=== PATIENT | female | born 1975 | race Caucasian/White ===

== ENCOUNTER 2019-08-01 15:10 | Outpatient (CLI) | payer OTHER, BC, SELFPAY ==
--- NOTE | ~2019-08-01 | MM_ITS ---
EXAMINATION: MM screening jose BI w maria teresa HISTORY: Screening mammogram TECHNIQUE: Craniocaudal and mediolateral oblique 3-D tomosynthesis images were obtained and synthetic 2-D images were generated. CAD analysis was submitted and interpreted. COMPARISON: 07/27/2018 bilateral digital screening mammogram 03/24/2018 diagnostic left digital mammogram and limited left breast ultrasound examination 08/25/2017 stereotactic biopsy and postbiopsy mammogram 08/09/2017 diagnostic left digital mammogram 07/23/2017 bilateral digital screening mammogram BREAST PARENCHYMAL COMPOSITION: There are scattered areas of fibroglandular density. FINDINGS: There is a biopsy marker on the left; history of prior benign left stereotactic breast biop sy. There are occasional punctate benign calcifications. There is no evidence of suspicious mass, celena cification, or architectural distortion to suggest malignancy in either breast. There has been no víctor picious interval change. IMPRESSION: 1. No mammographic evidence of malignancy. 2. Recommend routine screening mammography in one year. BI-RADS Category 2: Benign finding(s). Reviewed, dictated and finalized at location A.
== END 2019-08-01 15:11 | disposition home or self-care (01) ==
LOC: ANHIMG 15:19
PROVIDERS: PCP Internal Medicine; Visit Provider Internal Medicine Hematology & Oncology
DX: Z12.31 Encounter for screening mammogram for malignant neoplasm of breast (principal)
CPT/HCPCS: 77063; 77067

== ENCOUNTER 2020-02-17 19:02 | Emergency (ER) | payer OTHER, BC, SELFPAY ==
[2020-02-17 19:07] VITALS: BP 158/92; PULSE 76; RESP 18; TEMP 36.7; O2SAT 99
--- NOTE | 2020-02-17 19:45 | ED.GENADULT ---
HPI - General Adult General Chief complaint: Extremity Injury, Lower Stated complaint: Groin/Leg Pain Time Seen by Provider: 02/17/20 19:13 History of Present Illness HPI narrative: Patient is a 44-year-old female who presents emerge department with chief complaint of bilateral inguinal pain. The patient reports that she recently was being managed for COVID-19 and has been at home. The patient states that for the last 24 hours she started having pain in the bilateral groin area states that it radiates down into her thighs on both sides. Patient denies bowel or bladder dysfunction denies paresthesias denies foot drop. Patient denies fever states she has been cleared by the health department to return to work on Wednesday. Related Data Home Medications Medication Instructions Recorded Confirmed cetirizine [Zyrtec] 10 mg PO DAILY 02/17/20 famotidine [Pepcid AC] 10 mg PO DAILY 02/17/20 Allergies Allergy/AdvReac Type Severity Reaction Status Date / Time latex Allergy Unknown Hives Verified 02/17/20 19:10 Review of Systems Review of Systems: Narrative: A 10 system review of systems was completed on the patient and is negative except for what is stated in the HPI. Nursing and ancillary documentation was reviewed. [facility] Social History Social History Smoking status: Never smoker Alcohol intake: never Comments COVID-19 Seasonal allergies Social history the patient denies illicit drug use Exam Narrative: Exam Narrative: GENERAL: Well-appearing, well-nourished, and in no acute distress. HEAD: Normocephalic, atraumatic. EYES: PERRLA and EOMI. ENT: Nares clear, no rhinorrhea or epistaxis. Mucous membranes moist. NECK: Supple. CHEST: Clear to auscultation. No respiratory distress. HEART: Regular rate and rhythm. No murmur heard. Normal peripheral pulses. ABDOMEN: Soft, nontender, nondistended, normal active bowel sounds. EXTREMITIES: Normal range of motion. No edema. SKIN: Warm, dry, no rash. NEURO: No focal deficits. Alert and oriented x3. PSYCH: Normal mood and affect. Course Vital Signs Vital signs: Vital Signs Temperature 36.7 C 02/17/20 19:07 Pulse Rate 76 02/17/20 19:07 Respiratory Rate 18 02/17/20 19:07 Blood Pressure 158/92 H 02/17/20 19:07 Pulse Oximetry 99 02/17/20 19:07 Temperature 36.7 C 02/17/20 19:07 Pulse Rate 76 02/17/20 19:07 Respiratory Rate 18 02/17/20 19:07 Blood Pressure 158/92 H 02/17/20 19:07 Pulse Oximetry 99 02/17/20 19:07 Medical Decision Making Vital Signs Vital Signs: Vital Signs Temperature 36.7 C 02/17/20 19:07 Pulse Rate 76 02/17/20 19:07 Respiratory Rate 18 02/17/20 19:07 Blood Pressure 158/92 H 02/17/20 19:07 Pulse Oximetry 99 02/17/20 19:07 Temperature 36.7 C 02/17/20 19:07 Pulse Rate 76 02/17/20 19:07 Respiratory Rate 18 02/17/20 19:07 Blood Pressure 158/92 H 02/17/20 19:07 Pulse Oximetry 99 02/17/20 19:07 Lab Data Result diagrams: 02/17/20 19:42 02/17/20 19:42 Labs: Lab Results 02/17/20 02/17/20 02/17/20 Range/Units 19:42 19:42 19:42 WBC 9.4 (4.5-10.0) K/mm3 RBC 4.80 (4.2-5.4) M/mm3 Hgb 15.7 H (12.0-15.0) g/dL Hct 43.9 (37.0-47.0) % MCV 91.5 (80-100) fl MCH 32.7 (26-34) pg MCHC 35.8 (32-36) g/dl RDW 12.4 (11.5-14.5) % Plt Count 221 (150-375) k/mm3 MPV 10.4 (7.4-10.4) fl Immature Gran % (Auto) 1.3 H (0-0.5) % Neut % (Auto) 52.8 (45.5-73.1) % Lymph % (Auto) 37.3 (18.3-44.2) % [place] % (Auto) 7.9 (2.6-8.5) % Eos % (Auto) 0.6 (0-4.4) % Baso % (Auto) 0.1 L (0.2-1.2) % Lymph # (Auto) 3.49 H (0.9-3.2) K/mm3 [place] # (Auto) 0.7 H (0.1-0.6) K/mm3 Eos # (Auto) 0.1 (0-0.3) K/mm3 Baso # (Auto) 0.0 (0.0-0.1) K/mm3 Abs Immat Gran (auto) 0.12 H (0.00-0.031) K/mm3 Absolute Neuts (auto) 4.9 (1.3-6.7) K/mm3 Absolute Nucleated RBC 0.0 (0.0-0.012)
[2020-02-17 19:52] LABS: Basophils Percent Auto 0.1 % (0.2-1.2); Eosinophils Absolute Auto 0.1 K/mm3 (0-0.3); Eosinophils Percent Auto 0.6 % (0-4.4); Hematocrit 43.9 % (37.0-47.0); Hemoglobin 15.7 g/dL (12.0-15.0); Immature Granulocyte Absolute 0.12 K/mm3 (0.00-0.031); Immature Granulocyte Percent A 1.3 % (0-0.5); Lymphocytes Absolute Auto 3.49 K/mm3 (0.9-3.2); Lymphocytes Percent Auto 37.3 % (18.3-44.2); Mean Corpuscular HGB Conc 35.8 g/dl (32-36); Mean Corpuscular Hemoglobin 32.7 pg (26-34); Mean Corpuscular Volume 91.5 fl (80-100); Mean Platelet Volume 10.4 fl (7.4-10.4); Monocytes Absolute Auto 0.7 K/mm3 (0.1-0.6); Monocytes Percent Auto 7.9 % (2.6-8.5); Neutrophils Absolute Auto 4.9 K/mm3 (1.3-6.7); Neutrophils Percent Auto 52.8 % (45.5-73.1); Platelet Count Result 221 k/mm3 (150-375); Red Cell Distribution Width 12.4 % (11.5-14.5); White Blood Count 9.4 K/mm3 (4.5-10.0)
[2020-02-17 19:54] LABS: Add Urine Microscopic? NO; Appearance Urine Clear (Clear); Bilirubin Urine Negative (Negative); Blood Urine Negative (Negative); Color Urine Yellow (Yellow); Glucose Urine UA Negative (Negative); Ketones Urine Negative (Negative); Leukocyte Esterase Ur Negative LEU/UL (Negative); Nitrate Urine Negative (Negative); Protein Urine Negative (Negative); Specific Grav Ur 1.023 (1.001-1.035); Urobilinogen Urine Negative mg/dL (<2.0)
[2020-02-17 20:02] LABS: Prothrombin Time 13.4 Seconds (11.1-14.7)
[2020-02-17 20:03] LABS: Alanine Aminotransferase 36 U/L (4-35); Albumin Level 3.6 g/dL (3.5-5.1); Alkaline Phosphatase 68 U/L (38-126); Anion Gap 8 mmol/L (8-16); Aspartate Amino Transferase 30 U/L (14-36); Bilirubin,Total 0.6 mg/dL (0.2-1.3); Blood Urea Nitrogen 18 mg/dL (7-17); Calcium 8.3 mg/dL (8.4-10.2); Carbon Dioxide 25 mmol/L (22-30); Chloride 103 mmol/L (98-107); Estimated CRCL calculation 61 ml/min; Estimated Glomerular Filt Rate > 60; Glucose 116 mg/dL (65-105); Potassium 3.1 mmol/L (3.4-5.0); Sodium 136 mmol/L (137-145)
[2020-02-17 20:15] LABS: D Dimer 0.27 ug/mL (<0.48)
[2020-02-17] MEDS: KETOROLAC (*BKC) 60 MG/2 ML VIAL IM (20:23)
[2020-02-17] MEDS: POTASSIUM CHLORIDE 20 MEQ TABLET 40 MEQ PO (20:48)
== END 2020-02-17 20:50 | disposition home or self-care (01) ==
PROVIDERS: Emergency Provider Emergency Medicine; PCP Internal Medicine
DX: M79.605 Pain in left leg (principal); M79.604 Pain in right leg; Z86.19 Personal history of other infectious and parasitic diseases
CPT/HCPCS: 36415; 80053; 81003; 83735; 85025; 85380; 85610; 85730; 96372; 99283; A9270; J1885

== ENCOUNTER 2020-02-18 07:25 | Outpatient (CLI) | payer OTHER, BC, SELFPAY ==
--- NOTE | ~2020-02-18 | US_ITS ---
EXAMINATION: US venous doppler [facility] DATE: 02/18/2020 07:50 INDICATION: Right lower limb pain. TECHNIQUE: Grayscale ultrasound images without and with compression and Doppler ultrasound images of the bilateral lower extremity veins were obtained. COMPARISON: None. FINDINGS: The visualized portions of right common femoral vein, profunda (deep) femoral vein, femoral vein, pop liteal vein, peroneal veins, posterior tibial veins, and greater saphenous vein outflow are patent. The visualized portions of left common femoral vein, profunda femoral vein, femoral vein, popliteal v ein, peroneal veins, posterior tibial veins, and greater saphenous vein outflow are patent. IMPRESSION: 1. No deep venous thrombosis. Reviewed, dictated and finalized at location A. 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
== END 2020-02-18 07:26 | disposition home or self-care (01) ==
PROVIDERS: PCP Internal Medicine; Visit Provider Internal Medicine
DX: M79.604 Pain in right leg (principal)
CPT/HCPCS: 93970

== ENCOUNTER 2020-09-17 16:52 | Outpatient (CLI) | payer OTHER, BC, SELFPAY ==
--- NOTE | ~2020-09-17 | MM_ITS ---
EXAMINATION: MM screening jose BI w maria teresa HISTORY: Screening TECHNIQUE: Craniocaudal and mediolateral oblique 3-D tomosynthesis images were obtained and synthetic 2-D images were generated. CAD analysis was submitted and interpreted. COMPARISON: Comparison to multiple prior studies sequentially, with oldest reviewed study dated 03/24. BREAST PARENCHYMAL COMPOSITION: Breast composed of scattered areas of fibroglandular density FINDINGS: There is no evidence of suspicious mass, calcification, or architectural distortion to sugg est malignancy in either breast. There has been no suspicious interval change. IMPRESSION: 1. No mammographic evidence of malignancy. 2. Recommend routine screening mammography in one year. BI-RADS Category 1: Negative Reviewed, dictated and finalized at location A.
== END 2020-09-17 16:53 | disposition home or self-care (01) ==
PROVIDERS: PCP Internal Medicine; Visit Provider Internal Medicine
DX: Z12.31 Encounter for screening mammogram for malignant neoplasm of breast (principal)
CPT/HCPCS: 77063; 77067

== ENCOUNTER 2021-08-15 08:06 | Emergency (ER) | payer OTHER, BC, SELFPAY ==
[2021-08-15 08:13] VITALS: BP 148/78; PULSE 83; RESP 14; TEMP 36.7; O2SAT 100
--- NOTE | 2021-08-15 08:27 | ED.GENADULT ---
HPI - General Adult General Chief complaint: Unspecified Stated complaint: Left Breast Pain, Bloodly Discharge Time Seen by Provider: 08/15/21 08:13 Source: RN notes reviewed History of Present Illness HPI narrative: Patient presents emergency department from home for left breast pain. Patient states for the past 4 days she has been having some pain around the nipple of her left breast with some small amount of bloody discharge. Patient states she has a history of 4 years ago having a mass seen on mammogram with removal of tissue that turned out to be calcium deposit she states they put a titanium marker and at that time. Since that time she has had yearly mammograms that it been normal. The patient states that the pain began 4 days ago she states she is had no redness of the breast she is noted no lumps or masses. Patient denies any fevers or chills chest pain shortness of breath or any other symptoms Related Data Home Medications Medication Instructions Recorded Confirmed cetirizine 10 mg tablet (Zyrtec) 10 mg PO DAILY 02/17/20 famotidine 10 mg tablet (Pepcid AC) 10 mg PO DAILY 02/17/20 Allergies Allergy/AdvReac Type Severity Reaction Status Date / Time latex Allergy Unknown Hives Verified 08/15/21 08:16 dexamethasone Allergy Other Verified 08/15/21 08:16 Review of Systems Review of Systems: Gen.: Denies fevers or chills Respiratory: Denies shortness of breath or cough CV: Denies chest pain GI: Denies abdominal pain Musculoskeletal: Denies back pain or muscle pain Neuro: Denies numbness, tingling, weakness or focal weakness Skin: Denies rash Except as documented, all other systems reviewed and negative Except as documented, all other systems reviewed and negative [facility] Social History Social History Smoking status: Never smoker Alcohol intake: never Exam Narrative: APPEARANCE: No acute distress, nontoxic, resting in bed EYES: EOMI HEENT: Normocephalic, atraumatic, OMM Breast: Left breast has no erythema or ecchymosis there is no focal signs of infection, very small amount of bloody discharge with expression there is tenderness around the areola with no fluctuance no masses palpated RESPIRATORY: No respiratory distress MUSCULOSKELETAl: Moves all extremities. No clubbing, cyanosis or edema. NEURO: Awake and alert. Following commands, speech normal, no focal deficits SKIN:: Warm, dry. No rashes lesions or abrasions PSYCHIATRIC: Normal affect/mood, Course Course Emergency Course: Discussed with Dr. Winters for radiology discussed imaging options at this time recommends the patient be set up for a mammogram Discussed with Dr. Dunlap patient's PCP agrees to plan for discharge will follow up for outpatient for mammogram Discussed with patient results of workup and diagnosis. Discussed need for follow-up with primary care, proper use of medication, and reasons to return to the emergency department. Patient understands and agrees to current treatment plan Vital Signs Vital signs: Vital Signs Temperature 98.0 F 08/15/21 08:13 Pulse Rate 83 08/15/21 08:13 Respiratory Rate 14 08/15/21 08:13 Blood Pressure 148/78 H 08/15/21 08:13 Pulse Oximetry 100 08/15/21 08:13 Oxygen Delivery Room Air 08/15/21 08:13 Temperature 98.0 F 08/15/21 08:13 Pulse Rate 83 08/15/21 08:13 Respiratory Rate 14 08/15/21 08:13 Blood Pressure 148/78 H 08/15/21 08:13 Pulse Oximetry 100 08/15/21 08:13 Oxygen Delivery Room Air 08/15/21 08:13 Medical Decision Making Vital Signs Vital Signs: Vital Signs Temperature 98.0 F 08/15/21 08:13 Pulse Rate 83 08/15/21 08:13 Respiratory Rate 14 08/15/21 08:13 Blood Pressure 148/78 H 08/15/21 08:13 Pulse Oximetry 100 08/15/21 08:13 Oxygen Delivery Room Air 08/15/21 08:13 Temperature 98.0 F 08/15/21 08:13 Pulse Rate 83 08/15/21 08:13 Respiratory Rate 14 08/15/21 08:13 Blood Pressure 148/78 H 08/15/21 08:13 Pulse O
[2021-08-15 09:06] LABS: Basophils Percent Auto 0.3 % (0.2-1.2); Eosinophils Percent Auto 0.6 % (0-4.4); Hemoglobin 13.5 g/dL (12.0-15.0); Immature Granulocyte Absolute 0.04 K/mm3 (0.00-0.031); Immature Granulocyte Percent A 0.6 % (0-0.5); Lymphocytes Absolute Auto 1.64 K/mm3 (0.9-3.2); Lymphocytes Percent Auto 24.7 % (18.3-44.2); Mean Corpuscular HGB Conc 35.5 g/dl (32-36); Mean Corpuscular Volume 95.7 fl (80-100); Mean Platelet Volume 11.2 fl (7.4-10.4); Monocytes Absolute Auto 0.4 K/mm3 (0.1-0.6); Neutrophils Absolute Auto 4.5 K/mm3 (1.3-6.7); Neutrophils Percent Auto 67.8 % (45.5-73.1); Platelet Count Result 185 k/mm3 (150-375); Red Blood Count 3.97 M/mm3 (4.2-5.4); Red Cell Distribution Width 12.9 % (11.5-14.5); White Blood Count 6.6 K/mm3 (4.5-10.0)
[2021-08-15 09:19] LABS: Prothrombin Time 12.7 Seconds (11.1-14.7)
[2021-08-15 09:25] LABS: Alanine Aminotransferase 32 U/L (6-35); Albumin Level 4.4 g/dL (3.5-5.1); Alkaline Phosphatase 66 U/L (38-126); Anion Gap 7 mmol/L (8-16); Aspartate Amino Transferase 26 U/L (14-36); Bilirubin,Total 0.3 mg/dL (0.2-1.3); Blood Urea Nitrogen 12 mg/dL (7-17); Calcium 8.7 mg/dL (8.4-10.2); Carbon Dioxide 25 mmol/L (22-30); Chloride 106 mmol/L (98-107); Estimated CRCL calculation 74 ml/min; Estimated Glomerular Filt Rate > 60; Glucose 110 mg/dL (65-110); Potassium 4.1 mmol/L (3.4-5.0); Sodium 138 mmol/L (137-145)
[2021-08-15 09:50] VITALS: BP 123/64; PULSE 80; RESP 14; O2SAT 99
== END 2021-08-15 09:50 | disposition home or self-care (01) ==
PROVIDERS: Emergency Provider Emergency Medicine; PCP Internal Medicine
DX: N64.4 Mastodynia (principal)
CPT/HCPCS: 36415; 76641; 77062; 77066; 80053; 85025; 85610; 85730; 99283; G0279

== ENCOUNTER 2021-08-15 10:18 | Outpatient (CLI) | payer OTHER, BC, SELFPAY ==
--- NOTE | ~2021-08-15 | MMUS_ITS ---
EXAMINATION: MM diagnostic jose BI w maria teresa, US breast LT complete HISTORY: Left bloody nipple discharge TECHNIQUE: Additional 3-D tomosynthesis images of the breasts were performed and synthetic 2-D images were generated. CAD analysis was submitted and interpreted. High resolution complete left breast ult rasound was performed. COMPARISON: Comparison to multiple prior studies sequentially, with oldest reviewed study dated 08/25. BREAST PARENCHYMAL COMPOSITION: Breast composed of scattered areas of fibroglandular density FINDINGS: MAMMOGRAPHIC FINDINGS: There are no suspicious masses, calcifications or architectural distortion in either breast to sugges t malignancy. ULTRASOUND: Complete US of all 4 quadrants of the left breast and retroareolar region was reviewed. There are mil dly prominent subareolar ducts. No discrete solid or cystic mass is identified. There are normal-appe aring lymph nodes in the left axilla. No sonographic evidence for malignancy. IMPRESSION: 1. No evidence for malignancy in either breast. 2. Consider correlation with MRI of the breasts or ductogram. Otherwise, routine follow-up bilateral mammogram recommended. BI-RADS Category 1: Negative Reviewed, dictated and finalized at location A. IMPRESSION: 1. No evidence for malignancy in either breast. 2. Consider correlation with MRI of the breasts or ductogram. Otherwise, routin e follow-up bilateral mammogram recommended. BI-RADS Category 1: Negative
== END 2021-08-15 10:19 | disposition home or self-care (01) ==
PROVIDERS: PCP Internal Medicine; Visit Provider Internal Medicine
DX: N64.52 Nipple discharge (principal)
CPT/HCPCS: 76641; 77062; 77066; G0279

== ENCOUNTER 2022-10-20 13:47 | Emergency (ER) | payer OTHER, BC, SELFPAY ==
[2022-10-20] VITALS (17 sets, daily range): BP systolic 133–184; BP diastolic 74–102; PULSE 71–92; RESP 12–21; TEMP 36.3; O2SAT 97–100
--- NOTE | ~2022-10-20 | CT_ITS ---
EXAMINATION: CT brain wo con DATE: 10/20/2022 18:00 INDICATION: Headache. Hypertension. TECHNIQUE: Computed tomography (CT) of the head was performed without intravenous contrast. Sagittal and coronal reconstructions were performed. The mA was adjusted according to patient size. Iterative reconstruction technique was employed. The dose-length product was 605.33 mGy-cm. COMPARISON: None FINDINGS: No acute intracranial hemorrhage, acute infarction or abnormal extra axial fluid collection. Ventricl es are normal and symmetric. No mass/mass effect. The orbits, paranasal sinuses and mastoid air cells are normal. IMPRESSION: 1. Normal head CT. Reviewed, dictated and finalized at location A. IMPRESSION: 1. Normal head CT.
--- NOTE | ~2022-10-20 | XR_ITS ---
EXAMINATION: XR chest 2V DATE: 10/20/2022 17:14 INDICATION: Lightheadedness TECHNIQUE: PA and lateral views of the chest were obtained. COMPARISON: Chest radiograph dated 06/20/2015 FINDINGS: The lungs remain clear with no focal airspace opacities, pulmonary edema, pleural effusion or pneumot horax. The cardiomediastinal silhouette is normal. Cholecystectomy clips in right upper quadrant. IMPRESSION: 1. No acute cardiopulmonary disease. Reviewed, dictated and finalized at location A.
--- NOTE | 2022-10-20 13:49 | ECG_ITS ---
Measurements Intervals [place] Rate: 83 P: 50 MS: 136 QRS: 41 QRSD: 83 T: 9 QT: 336 QTc: 396 Interpretive Statements SINUS RHYTHM WITH SINUS ARRHYTHMIA POSSIBLE LEFT ATRIAL ENLARGEMENT [-0.1mV P WAVE IN V1/V2] NONSPECIFIC T-WAVE ABNORMALITY NO PREVIOUS ECG AVAILABLE FOR COMPARISON Electronically Signed On 10-21-2022 11:29:54 CDT by Tg Silva M.D.
[2022-10-20 14:23] LABS: Basophils Percent Auto 0.3 % (0.2-1.2); Eosinophils Absolute Auto 0.1 K/mm3 (0-0.3); Eosinophils Percent Auto 0.9 % (0-4.4); Hematocrit 40.4 % (37.0-47.0); Immature Granulocyte Absolute 0.03 K/mm3 (0.00-0.031); Immature Granulocyte Percent A 0.4 % (0-0.5); Lymphocytes Absolute Auto 1.95 K/mm3 (0.9-3.2); Lymphocytes Percent Auto 28.1 % (18.3-44.2); Mean Corpuscular HGB Conc 34.7 g/dl (32-36); Mean Corpuscular Hemoglobin 32.4 pg (26-34); Mean Corpuscular Volume 93.5 fl (80-100); Mean Platelet Volume 11.7 fl (7.4-10.4); Monocytes Absolute Auto 0.3 K/mm3 (0.1-0.6); Monocytes Percent Auto 4.5 % (2.6-8.5); Neutrophils Absolute Auto 4.6 K/mm3 (1.3-6.7); Neutrophils Percent Auto 65.8 % (45.5-73.1); Platelet Count Result 175 k/mm3 (150-375); Red Blood Count 4.32 M/mm3 (4.2-5.4); Red Cell Distribution Width 12.5 % (11.5-14.5)
[2022-10-20 14:31] LABS: Alanine Aminotransferase 43 U/L (6-35); Albumin Level 4.4 g/dL (3.5-5.1); Alkaline Phosphatase 69 U/L (38-126); Anion Gap 5 mmol/L (8-16); Aspartate Amino Transferase 33 U/L (14-36); Bilirubin,Total 0.8 mg/dL (0.2-1.3); Blood Urea Nitrogen 14 mg/dL (7-17); Calcium 9.1 mg/dL (8.4-10.2); Carbon Dioxide 30 mmol/L (22-30); Chloride 100 mmol/L (98-107); Estimated CRCL calculation 69 ml/min; Estimated Glomerular Filt Rate > 60; Glucose 142 mg/dL (65-110); Potassium 3.4 mmol/L (3.4-5.0); Sodium 135 mmol/L (137-145)
--- NOTE | 2022-10-20 17:34 | ED.DIZZY ---
HPI - Dizziness General Chief Complaint: Dizziness Stated Complaint: nausea/lightheaded Time Seen by Provider: 10/20/22 17:00 Source: patient Mode of arrival: ambulatory Limitations: no limitations History of Present Illness HPI Narrative: This is a 47-year-old female that presents to the emergency department after feeling unwell today. Reports while at work she was feeling nauseous. She then started to feel lightheaded. Reports feeling anxious and having tingling in her hands. Also reports feelings of irregular heartbeat. She put on her friends apple watch which told her she was in atrial fibrillation which prompted her to be seen in the ER. Denies visual changes, vomiting, chest pain, shortness of breath, or focal numbness or weakness. Related Data Home Medications Medication Instructions Recorded Confirmed cetirizine 10 mg tablet (Zyrtec) 10 mg PO DAILY 02/17/20 famotidine 10 mg tablet (Pepcid AC) 10 mg PO DAILY 02/17/20 Allergies Allergy/AdvReac Type Severity Reaction Status Date / Time latex Allergy Unknown Hives Verified 08/15/21 08:16 dexamethasone Allergy Other Verified 08/15/21 08:16 Review of Systems Review of Systems: CONSTITUTIONAL: Denies fever EYES: Denies visual changes CARDIOVASCULAR: Reports palpitations. Denies chest pain, or edema. RESPIRATORY: Denies dyspnea. GASTROINTESTINAL: Reports nausea. Denies vomiting All systems reviewed & are unremarkable except as noted in HPI and below PMFSH Past Medical History Medical History (Updated 10/20/22 @ 19:37 by Idalia Grayson PA-C) History of rheumatoid arthritis Social History Social History Smoking status: Never smoker Alcohol intake: never Exam Narrative: GENERAL: Well-appearing, well-nourished, and in no acute distress. HEAD: Normocephalic, atraumatic. EYES: PERRLA and EOMI. ENT: Nares clear, no rhinorrhea or epistaxis. Mucous membranes moist. Oropharynx without tonsillar hypertrophy exudate or other lesions. Bilateral TMs pearly [place] non-bulging NECK: Supple. No adenopathy or masses. CHEST: Clear to auscultation. No respiratory distress. No wheezes rales or rhonchi HEART: Regular rate and rhythm. No murmur heard. Normal peripheral pulses. ABDOMEN: Soft, nontender, nondistended, normal active bowel sounds. EXTREMITIES: Normal range of motion. No edema. Strength equal in bilateral upper and lower extremities (5/5) SKIN: Warm, dry, no rash. NEURO: No focal deficits. Alert and oriented x3. Cranial nerves 2-12 grossly intact. Normal [id number] PSYCH: Normal mood and affect Course Course Emergency Course: Patient updated on workup and agrees with plan of care Consultations Consultation #1: Spoke with patient's primary about workup who will follow-up in clinic for further evaluation Date: 10/20/22 Vital Signs Vital signs: Vital Signs Temperature 97.3 F L 10/20/22 13:49 Pulse Rate 90 10/20/22 13:49 Respiratory Rate 18 10/20/22 13:49 Blood Pressure 184/80 H 10/20/22 13:49 Pulse Oximetry 99 10/20/22 13:49 Oxygen Delivery Room Air 10/20/22 13:49 Temperature 97.3 F L 10/20/22 13:49 Pulse Rate 77 10/20/22 19:04 Respiratory Rate 14 10/20/22 19:04 Blood Pressure 133/79 10/20/22 17:47 Pulse Oximetry 98 10/20/22 19:04 Oxygen Delivery Room Air 10/20/22 13:49 MDM - Dizziness MDM Narrative Medical decision making narrative: Patient presents to the emergency department for nausea and lightheadedness noted today. Reports she put on her friends apple watch which told her she was in atrial fibrillation and should seek medical attention. Patient hypertensive upon arrival to 184/80. This down trended without intervention. Most recent blood pressure 133/79. Patient is neurologically intact. CBC and metabolic panel without concerning findings. Lipase is mildly elevated. She does not have any abdominal pain. UA without evidence of infection. CT scan of brain is normal. Chest x
[2022-10-20 17:49] LABS: Lipase 564 U/L (23-300)
[2022-10-20 17:52] LABS: Appearance Urine Clear (Clear); Bilirubin Urine Negative (Negative); Blood Urine Negative (Negative); Color Urine Yellow (Yellow); Glucose Urine UA Negative (Negative); Ketones Urine Negative (Negative); Leukocyte Esterase Ur Negative LEU/UL (Negative); Nitrate Urine Negative (Negative); Protein Urine Negative (Negative)
[2022-10-20 18:00] LABS: Add Urine Microscopic? NO
[2022-10-20 18:02] LABS: Troponin I < 0.012 ng/mL (0.000-0.034)
== END 2022-10-20 20:05 | disposition home or self-care (01) ==
PROVIDERS: Emergency Medicine; Emergency Provider Physician Assistant; PCP Internal Medicine
DX: R42 Dizziness and giddiness (principal); R03.0 Elevated blood-pressure reading, without diagnosis of hypertension; M06.9 Rheumatoid arthritis, unspecified; R94.31 Abnormal electrocardiogram [ECG] [EKG]
CPT/HCPCS: 36415; 70450; 71046; 80053; 81003; 81025; 83690; 84484; 85025; 93005; 99284

== ENCOUNTER 2022-11-23 06:10 | Day surgery (SDC) | payer OTHER, BC, SELFPAY ==
[2022-11-04 09:13] VITALS: BMI 34.1
--- NOTE | 2022-11-23 07:14 | P.PNAN_ITS ---
Anes - Initial Pre Proc Eval Procedure: Operation Date: 11/23/22 08:30 Proposed Procedures p Diagnostic Colonoscopy - Red Aquino MD Date/Time: 11/23/22 07:14 Surgeon: Red Aquino MD Pre Op Diagnosis: Other Fecal Abnormalities Patient Data Age: 47 Gender: F Height: 1.55 m Weight: 80.5 kg Allergies Allergy/AdvReac Type Severity Reaction Status Date / Time latex Allergy Unknown Hives Verified 11/04/22 09:39 dexamethasone Allergy Other Verified 11/04/22 09:39 Home Medications Medication Instructions Recorded Confirmed Type No Home Medications 11/04/22 11/23/22 History Patient hx anesthesia problems: none Family hx anesthesia problems: none Results Review: All pre-operative results and documents have been reviewed as part of the pre- operative evaluation. [facility] Past Medical History Medical History (Updated 11/23/22 @ 07:32 by Giacomo Thomson DO) Asthma GERD (gastroesophageal reflux disease) History of cardiac monitoring to rule out A fib History of rheumatoid arthritis Surgical History Surgical History History of hysterectomy Social History Social History Smoking status: Never smoker Alcohol intake: never Substance use: never Substance use type: does not use Living arrangements: with family Spiritual care concerns: No Anes - Eval Final PreProcedure Day of Procedure 11/23/22 07:14 Patient weight: obese Heart: regular rate and rhythm Lungs: clear to auscultation Airway: Mallampati scale class II Neurological: alert and oriented Last oral intake: >/= 8 hours ASA classification: III Emergent: no Anesthetic plan: proceed Anesthesia type and monitoring: general GIVS and standard monitoring Results Review: All pre-operative results and documents have been reviewed as part of the pre- operative evaluation. Informed Consent: The patient's anesthetic plan and its attendant risks and benefits were discussed with the patient/family/POA. Questions were solicited and answers provided to the satisfaction of the patient/family/POA.
--- NOTE | 2022-11-23 07:19 | PM.HPGS ---
History of Present Illness History of Present Illness Consent: Risks, benefits, and alternatives have been discussed and questions answered. Patient agrees to proceed with procedure. Chief complaint: Other Fecal Abnormalities Narrative: Lina Bailey is a 47 year old female Review of Systems Review of Systems: All systems reviewed & are unremarkable except as noted in HPI and below PMFSH Past Medical History Medical History (Updated 11/23/22 @ 07:32 by Giacomo Thomson DO) Asthma GERD (gastroesophageal reflux disease) History of cardiac monitoring to rule out A fib History of rheumatoid arthritis Surgical History Surgical History History of hysterectomy Social History Social History Smoking status: Never smoker Alcohol intake: never Substance use: never Substance use type: does not use Living arrangements: with family Spiritual care concerns: No Meds Home Medications and Allergies Home Medications Medication Instructions Recorded Confirmed Type No Home Medications 11/04/22 11/23/22 History Allergies Allergy/AdvReac Type Severity Reaction Status Date / Time latex Allergy Unknown Hives Verified 11/04/22 09:39 dexamethasone Allergy Other Verified 11/04/22 09:39 Exam Const: General: alert Orientation/consciousness: patient oriented x3 Resp: Auscultation: clear to auscultation bilaterally Cardio: Rate: regular rate Rhythm: regular rhythm GI: GI Palp: Yes Soft to palpation and No Tenderness to palpation present (GI) Neuro: General: patient oriented x3 Assessment and Plan Assessment and plan (1) Change in bowel habits: Code(s): R19.4 - Change in bowel habit Status: Acute Assessment and Plan: Colonoscopy with possible biopsy or polypectomy or cautery or injection of substances.
[2022-11-23] MEDS: LACTATED RINGERS 1,000 ML 150 ML IV CONT (07:22)
[2022-11-23 08:49] VITALS: BP 113/65; PULSE 70; RESP 16; O2SAT 99
[2022-11-23 08:59] VITALS: BP 113/65; PULSE 70; RESP 16; O2SAT 99
[2022-11-23 09:09] VITALS: BP 113/73; PULSE 65; RESP 16; O2SAT 97
--- NOTE | 2022-11-23 10:36 | WPDANESPN ---
Anes - Prog Note Post-Op Date/Time: 11/23/22 10:36 Cardiovascular status: normal Respiratory status: normal Airway patency: baseline Mental status: baseline Post-Op hydration status: normal Vital Signs: Last Vital Signs Pulse 65 11/23/22 09:09 Resp 16 11/23/22 09:09 BP 113/73 11/23/22 09:09 Pulse Ox 97 11/23/22 09:09 O2 Del Method Room Air 11/23/22 09:09 Pain Score (VAS): 0 I/O: Intake & Output 11/22/22 11/23/22 11/23/22 23:59 07:59 15:59 Intake Total 750 Balance 750 Post-procedural complaints: none Patient Feedback: Patient satisfied with anesthetic care. Other Findings: Patient vital signs back to baseline. Patient denies nausea and vomiting. Patient's pain under control. Patient OK for discharge.
== END 2022-11-23 09:18 | disposition home or self-care (01) ==
PROVIDERS: PCP Internal Medicine; Visit Provider Internal Medicine Gastroenterology
PROC: 0DJD8ZZ Inspection of Lower Intestinal Tract, Via Natural or Artificial Opening Endoscopic (ICD-10-PCS; CPT 45378; principal; 2022-11-23 08:30)
DX: R19.4 Change in bowel habit (principal); D12.8 Benign neoplasm of rectum; K64.8 Other hemorrhoids
CPT/HCPCS: 45380

== ENCOUNTER 2022-11-23 07:00 | Outpatient (NON) | payer OTHER, BC, SELFPAY | END 2022-11-23 07:01 | disposition home or self-care (01) | LOC: ANHLAB 11-24 11:55 | PROVIDERS: PCP Internal Medicine; Visit Provider Internal Medicine Gastroenterology | DX: R19.4 Change in bowel habit (principal) | CPT/HCPCS: 88305 ==

== ENCOUNTER 2024-02-25 16:17 | Outpatient (CLI) | payer OTHER, BC, SELFPAY ==
--- NOTE | ~2024-02-25 | US_ITS ---
EXAMINATION: US thyroid DATE: 02/25/2024 17:28 INDICATION: Nontoxic goiter TECHNIQUE: Multiple ultrasound images of the thyroid were obtained. COMPARISON: None. FINDINGS: The right thyroid lobe measures 3.8 x 1.6 x 1.4 cm. The left thyroid lobe measures 3.4 x 1.0 x 1.3 c m. 5 mm solid hypoechoic nodule with smooth to ill-defined margins and without echogenic foci (TI-RA DS 4, moderately suspicious , FNA if >=1.5 cm, annual followup is >=1 cm) in the right thyroid lobe. There is normal echotexture, echogenicity and vascular flow throughout the thyroid gland. IMPRESSION: 1. 5 mm TI-RADS 4 right thyroid nodule which is well below size criteria for either biopsy or follow- up. Reviewed, dictated and finalized at location B. MENTATION COORDINATOR IMPRESSION: 1. 5 mm TI-RADS 4 right thyroid nodule which is well below size criteria for ei ther biopsy or follow-up.
== END 2024-02-25 16:18 | disposition home or self-care (01) ==
PROVIDERS: PCP Internal Medicine; Visit Provider Internal Medicine
DX: E04.1 Nontoxic single thyroid nodule (principal)
CPT/HCPCS: 76536

== ENCOUNTER 2024-06-15 15:19 | Outpatient (CLI) | payer BC, OTHER, SELFPAY ==
--- NOTE | ~2024-06-15 | CT_ITS ---
EXAMINATION: CT sinus wo con DATE: 06/15/2024 15:36 INDICATION: Chronic sinusitis TECHNIQUE: Computed tomography (CT) of the paranasal sinuses was performed without intravenous contra st. The dose-length product was 270.28 mGy-cm. Automated exposure control and iterative reconstructio n technique were employed. COMPARISON: CT dated 10/20/2022 FINDINGS: No significant mucosal thickening. No abnormal fluid. No mucoperiosteal reaction. No signif icant nasal septal deviation. Ostiomeatal units are patent. Mastoids are pneumatized. No midline shift. IMPRESSION: 1. No significant sinus disease. Reviewed, dictated and finalized at location B.
== END 2024-06-15 15:20 | disposition home or self-care (01) ==
LOC: MICIMG 15:20
PROVIDERS: PCP Internal Medicine; Visit Provider Internal Medicine
DX: J32.9 Chronic sinusitis, unspecified (principal)
CPT/HCPCS: 70486

== ENCOUNTER 2024-06-29 15:52 | Outpatient (CLI) | payer OTHER, BC, SELFPAY ==
--- NOTE | ~2024-06-29 | CT_ITS ---
CT scan of the Neck Technique: 2.5 mm axial scans were obtained through the neck after intravenous administration of 75 c c Omnipaque 350. Coronal and sagittal reconstructions of the neck were obtained. Dose reduction techn ique was used on this scan by utilizing automated exposure control and iterative reconstruction techn ique. The dose-length product (DLP) was 467.22 mGy-cm. Clinical History: Enlarged lymph nodes. Findings: There is no evidence of any significant cervical lymphadenopathy. Several small, nonenlarged jugulo- digastric and posterior cervical lymph nodes are noted bilaterally. Parapharyngeal spaces appear norm al bilaterally. The parotid and submandibular glands appear normal. The pharyngeal mucosal spaces appear normal. No soft tissue masses are seen in the neck. The thyroid gland appears normal. Images of the lung apices reveal no abnormalities. Impression: No significant abnormalities noted. Reviewed, dictated and finalized at [facility]. Impression: No significant abnormalities noted.
--- OUTSIDE RECORDS SUMMARY | 2024-06-29 15:55 | XMS_ITS | CONTINUITY OF CARE DOCUMENT ---
Author Name ciara urbina Address Unknown Organization [facility] Address [address] [place] [address] Phone [phone] Care Team Providers Care Topographical Engineer Name Role Phone Daniel EGAN, Marcus Unavailable CHADWICK MATHEW MD Unavailable INSURANCE PROVIDERS Payer name Policy type / Coverage type [place] red constitution party ID [id number] Other [id number] [facility] [place] [id number]
--- OUTSIDE RECORDS SUMMARY | 2024-06-29 15:55 | XMS_ITS | Encounter Summary ---
Author Organization [facility] Address [address] [place] [address] Care Team Providers Care Pail Bailer Name Role Phone Soham Dunlap MD Primary Care Provider [phone] None, Provider Primary Care Provider Unavaila ble Encounter Details Date Type Department Care Team (Late st Contact Info) Description 11/11/2021 Prep for Procedure [facility] Pre-Admission Testing [address] [place], [place] [id number] Soham Suresh MD [address] [address] Social History Tobacco Use Types Packs/Day Years Used Date Smoking Tobacco: Former Cigarettes Q uit: 2013 Smokeless Tobacco: Never Comments:was only a social s moker- 1 pack would last 2 weeks Alcohol Use Standard Drinks/Week Comments Yes 0 (1 standard drink = 0.6 oz pur e alcohol) rare-= 2 every 4 months Comments No Sex and Gender Information Value Date Recorded Sex Assigned at Not on file Legal Sex Female 5:55 PM MIDDLEWARE ARCHITECT Gender Identity Not on file Sexual Orientation Not on file COVID-19 Exposure Response Date Recorded In the last 10 days, have yo u been in contact with someone who was confirmed or suspected to have Coronavirus/COVID-19? No / Unsure 10/15/2021 6:45 AM CDT documented as of this encounter Plan of Treatment Not on file documented as of this encounter Results * CORONAVIRUS (COVID 19) (11/14/2021 9:05 AM CDT) SPEC DESCRIPTION NASAL 11/15/19 9:46 AM CDT [facility] CORONAVIRUS SARS COV 2 PCR (RESP) NEGATIVE NEGATIVE 11/15/2021 2:04 AM CDT [facility] Comment: THE SARS-CoV-2 TEST HAS BEEN AUTHORIZED BY THE FDA UNDER AN EUA FOR USE BY AUTHORIZED LABORATORIES. PERFORMED BY NUCLEIC ACID AMPLIFICATION PCR FIRST TEST NO 11/14/2021 9:46 AM CDT [facility] EMPLOYED IN HEALTHCARE NO 11/14/2021 9:46 AM CDT [facility] SYMPTOMATIC DEFINED BY CDC NO 11/14/2021 9:46 AM CDT [facility] HOSPITALIZATION STATUS NO 11/14/2021 9:46 AM CDT [facility] PATIENT IN ICU NO 11/14/2021 9:46 AM CDT [facility] RESIDENT OF [facility] NO 11/14/2021 9:46 AM CDT [facility] NOT 11/14/2021 9:46 AM CDT [facility] NASAL STRUCTURE / Unknown 11/14/2021 9:05 AM CDT Soham Suresh MD MICROBIOLOGY - GENERAL ORDER KENNY Final Result [facility] [address] [place] [address], [place] [phone] [facility] [address] [place] [address], [place] [phone] documented in this encounter Visit Diagnoses Diagnosis Preop examination- Primary Preoperative examination, unspecified documented in this encounter Additional Health Concerns Infection Onset Date Last Indicated Resolved Time COVID-19 Rule Out 11/14/2021 11/14/2021 11/15/2021 2:04 AM CDT documented as of this encounter Care Teams Pail Bailer Relationship Specialty Start Date End Date Soham Dunlap MD [address] [place] [address] PCP - General INTERNAL MEDICINE 12/03/18 11/16/23 None, Provider, PCP - General UNKNOWN PHYSICIAN SPECIALTY 11/17/23 documented as of this encounter
--- OUTSIDE RECORDS SUMMARY | 2024-06-29 15:55 | XMS_ITS | Clinical Summary ---
Author Organization [facility] Address [address] [place] [address] Care Team Providers Care Tools And Parts Attendant Name Role Phone Thea Raman NP Primary Care Provider [phone] Sally Manuel NURSE'S AIDES TEACHER Unavailable [phone] Allergies Active Allergy Reactions Criticality Noted Date Comments Dexamethasone Rash,Other (See comments) High 01/04/2021 Couldn't walk- almost paralyzed- has tolerated methylprednisone Latex Hives,Itching,Rash Medium 06/20/2012 Medications cetirizine (ZyrTEC) 10 mg tablet Take 1 tablet (10 mg total) by mouth daily Active montelukast (SINGULAIR) 10 mg tablet Take 1 tablet (10 mg total) by mouth nightly Active famotidine (PEPCID) 20 mg tabletIndication s:Rash and nonspecific skin eruption Take 1 tablet (20 mg total) by mouth 2 (two) times a day 60 tablet 2 01/12/2024 01/12/20 25 Active celecoxib (CeleBREX) 50 mg capsule Active estradioL (ESTRACE) 0.01 % (0.1 mg/gram) vaginal creamIndications :Dyspareunia in female Apply nightly to vagina for 1 week, then Wednesday// Wednesday 42.5 g 5 06/12/2024 02/08/20 25 Active Active Problems Problem Noted Date Diagnosed Date Well woman exam 06/12/2024 Overview (06/12/2024): Lab: Pap:15 years ago, has had a full hyst with [facility] with PCP Dianna:Dx mammogram done 10/2023. Patient has had a surgery for a mass calcification in the duct. Colonoscopy: 2022, repeat in 5 years BMD:none Assessment & Plan (06/12/2024 3:26 PM CDT): Complete exam done. Will send her labs with her to take to her pcp as she states he is not aware of her chol and hgba1c results. Dyspareunia in female 06/12/2024 Assessment & Plan (06/12/2024 3:53 PM CDT): To vaginal estrogen Use reviewed In the mean time can try coconut oil or other oil based lubricants. Chronic diarrhea 01/16/2024 Assessment & Plan (01/16/2024 8:25 AM FACILITY ENGINEER): Will get lab results from her baggageman. Referral to GI for possible Crohn's. Will also need to get results from last colonoscopy Autoimmune disease 01/16/2024 Assessment & Plan (01/16/2024 8:31 AM FACILITY ENGINEER): Having lower facial swelling. Refer to GI. Restart Pepcid Goiter 01/16/2024 Assessment & Plan (01/16/2024 8:27 AM FACILITY ENGINEER): TSH Ultrasound thyroid Lesion of liver 01/10/2023 Gastroesophageal reflux disease without esophagi tis 03/15/2022 Assessment & Plan (01/16/2024 8:30 AM FACILITY ENGINEER): Restart Pepcid 20 mg once daily. 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 Care at [address] [address] Mitra Block MD Well woman exam (Primary Dx); Dyspareunia in female from Last 3 Months Immunizations Immunization Administration Dates Next Due Influenza, Quadrivalent, Marzena l Culture-based MDCK, Antibiotic Free, Intramuscular 11/24/2018 Influenza, Quadrivalent, Spl it, Intramuscular 11/28/2015 Influenza, Quadrivalent, Spl it, Preservative Free, Intramuscular 12/25/2021,12/05/2020,11/23/2019,11/18,12/03/2016 Influenza, Trivalent, High D ose, Split, Preservative Free, Intramuscular 12/22/2013 Influenza, Trivalent, IM (MDV) 12/05/2020,2012,12/14/2012 Influenza, Unspecified 11/30/2023 Tdap 09/01/2018 Surgical History Surgery Date Site/Laterality Comments SECTION HYSTERECTOMY with BSO SHOULDER SURGERY TOTAL HIP ARTHROPLASTY Left JOINT REPLACEMENT EXCISION / BIOPSY BREAST / NIPPLE / DUCT 11/18/2021 Left Medical History Medical History Date Comments Asthma Thyroid disease Kidney stone GERD (gastroesophageal reflux disease) Arthritis Family History Medical History Relation Name Comments Heart disease Father Na Hyperlipidemia Father Na Hypertension Father Na Colon cancer Maternal Grandmother Lupus Maternal Grandmother Lupus Mother Lupus Mother's Sister 1 aunt 2 Lupus Mother's Sister 2 aunt 1 Diabetes Other Prostate cancer Paternal Grandfather Liver cancer Paternal Grandmother Cancer Neg Hx mggm- breast. m ga- breast cmt 06/12/24 Relation Name Status Comments Father Na Alive Maternal Grandfather Na Maternal Grandmother Mother Alive Mother's Sister 1 aunt 2 Other Mother's Sister 2 aunt 1 Alive Other Paternal Grandfather Paternal Grandmother Social History Tobacco Use Types Packs/Day Years Used Date Smoking Tobacco: Former Cigarettes 0 08/30/2001 - 08/31/2011 Smokeless Tobacco: Former Quit: 08/31/2011 Tobacco Cessation:Counseling Given: Not Answered Alcohol Use Standard Drinks/Week Comments Yes 0 (1 standard drink = 0.6 oz pur e alcohol) rarely Humiliation, Afraid, Rape, and Kick questionnair e Answer Date Recorded Within the last year, have y ou been afraid of your partner or ex-partner? No 06/12/2024 Within the last year, have y ou been humiliated or emotionally abused in other ways by your partner or ex-partner? No Within the last year, have y ou been kicked, hit, slapped, or otherwise physically hurt by your partner or ex-partner? No 06/12/2024 Within the last year, have y ou been raped or forced to have any kind of sexual activity by your partner or ex-partner? No 06/12/2024 AUDIT-C Answer Date Recorded Q1: How often do you have a drink containing alcohol? Never 01/12/2024 Q2: How many drinks containi ng alcohol do you have on a typical day when you are drinking? Patient does not drink Q3: How often do you have si x or more drinks on one occasion? 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 Not on file Not on file Not on file Obstetrics History Para Term AB IAB SAB Ectopic Multiple Livin g Live Births 3 2 2 1 1 2 2 Date Outcome GA Total Labor Labor/2nd/3rd Weight Sex Type Anes PTL Vielka A1 A5 Name Clin 1996 Term 41w 0d 3.487 kg (7 lb 11 oz) F Vagina l None N Livin g Complications:Eclampsia,Vagi nal laceration Delivery Location:[facility] [place] 2005 SAB 2005 Term 39w 0d 3.6 kg (7 lb 15 oz) M C-Sect ion Epidur al N Livin g Complications:Other (Comment ),Gestational diabetes mellitus Delivery Location:[place] Last Filed Vital Signs Vital Sign Reading Time Taken Comments Blood Pressure 132/72 06/12/2024 3:15 PM CDT Pulse 81 01/12/2024 1:54 PM FACILITY ENGINEER Temperature 36.4 C (97.6 F) 01/12/2024 1:54 PM FACILITY ENGINEER Respiratory Rate 16 01/12/2024 1:54 PM FACILITY ENGINEER Oxygen Saturation 97% 01/12/2024 1:54 PM FACILITY ENGINEER Inhaled Oxygen Concentration - - Weight 80.1 kg (176 lb 8 oz) 01/12/2024 1:54 PM FACILITY ENGINEER Height 154.9 cm (5' 1 ) 01/12/2024 1:54 PM FACILITY ENGINEER Body Mass Index 33.35 01/12/2024 1:54 PM FACILITY ENGINEER Plan of Treatment Health Maintenance Due Date Last Done Comments Pneumococcal vaccine <65 (1 of 2 - PCV) 1996 Breast Cancer Screening-Mammogram 11/16/2024 11/17/2023, 11/17/2023, 10/07/2022, Additional history exists Depression Screening 01/11/2025 01/12/2024 Regular Well Visit/Exam 18-64 06/12/2025 06/12/2024 DTaP/Tdap/Td Vaccine (2 - Td or Tdap) 09/01/2028 09/01/2018 Colon Cancer Screening-Colonoscopy 11/23/2032 11/23/2022 Influenza Vaccine Completed 11/30/2023, , 12/05/2020, Additional history exists Hepatitis B Screening Completed 01/12/2024 Hepatitis C Screening Completed 01/12/2024 HPV Vaccines Aged Out No longer eligi ble based on patient's age to complete this topic Procedures Procedure Name Priority Date/Time Associated Diagnosis Comments HEPATITIS C ANTIBODY Routine 01/12/2024 2:41 PM FACILITY ENGINEER Need for hepatitis C screening test Encounter for hepatitis C screening test for low risk patient from Last 3 Months or Most Recently Relevant to Health Maintenance Results * Hepatitis C antibody Blood (01/12/2024 2:41 PM FACILITY ENGINEER) Hep C Ab Nonreactive Nonreactive Comment: Interpretive Data Nonreactive: Antibodies to HCV not detected. Does NOT exclude the possibility of recent exposure to HCV. Equivocal: Equivocal for HCV antibodies. Supplemental molecular testing will be automatically performed to determine infection status in accordance with current CDC screening recommendations. Reactive: Positive for HCV antibodies. This may represent current or past HCV infection. Supplemental molecular testing will be automatically performed to determine current infection status in accordance with current CDC screening recommendations. Interpretive data was last revised on 2019. Blood 01/12/2024 2:41 PM FACILITY ENGINEER 01/12/2024 8:05 PM FACILITY ENGINEER Thea Raman NP LAB MICROBIOLOGY - GENERAL OR DERABLES Final Result Performing Organization Address City/State/[facility] [place] Phone Number [facility] [phone] [address] Department [place] [address] from Last 3 Months or Most Recently Relevant to Health Maintenance Insurance [employer]iance [facility] [place] Sub[place] Plan / Payer (Ef fective 2020-Present) Name:Sanchez Lina Edgar Relation to Subscriber:Spouse Name:RAUN BRADFORD Date of :1972 (Home) Address: [address] [place] [address] Payer ID:[id number] (NAIC) Type:BC OTHER Address: [address] [place] [id number] [facility] [employer] Care Teams Tools And Parts Attendant Relationship Specialty Start Date End Date Thea Raman NP PCP - General Family Medicine 01/12/24 Sally Manuel NP [address] [address] Nurse Practitioner 01/13/24
--- OUTSIDE RECORDS SUMMARY | 2024-06-29 15:55 | XMS_ITS | Referral Summary ---
Author Organization [facility] Address [address] [place] [address] Care Team Providers Care Licensed Veterinary Technician Name Role Phone Thea Raman NP Primary Care Provider [phone] Sally Manuel J2EE JAVA DEVELOPER Unavailable [phone] Encounters Date Type Department Care Team Description 06/12/2024 2:45 PM CDT Office Visit [facility] Women's Health Care at [address] [address] Mitra Block MD Well woman exam (Primary Dx); Dyspareunia in female from Last 3 Months Allergies Active Allergy Reactions Criticality Noted Date [...] 01/16/2024 Assessment & Plan (01/16/2024 8:25 AM ASPHALT TAMPER): Will get lab results from her pediatrician/medical doctor. Referral to GI for possible Crohn's. Will also need to get results from last colonoscopy Autoimmune disease 01/16/2024 Assessment & Plan (01/16/2024 8:31 AM ASPHALT TAMPER): Having lower facial swelling. Refer to GI. Restart Pepcid Goiter 01/16/2024 Assessment & Plan (01/16/2024 8:27 AM ASPHALT TAMPER): TSH Ultrasound thyroid Lesion of liver 01/10/2023 Gastroesophageal reflux disease without esophagi tis 03/15/2022 Assessment & Plan (01/16/2024 8:30 AM ASPHALT TAMPER): Restart Pepcid 20 mg once daily. 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 Microcalcification of left breast on mammogram 0 08/19/2017 Asthma 08/17/2017 Resolved Problems Problem Noted Date Diagnosed Date Resolved Date Sprain of calcaneofibular ligament 01/12/2024 01/12/2024 Otitis media 01/12/2024 01/12/2024 Immunizations Immunization Administration Dates Next Due Influenza, Quadrivalent, Marzena l Culture-based MDCK, Antibiotic Free, Intramuscular 11/24/2018 Influenza, Quadrivalent, Spl it, Intramuscular 11/28/2015 Influenza, Quadrivalent, Spl it, Preservative Free, Intramuscular 12/25/2021,12/05/2020,11/23/2019,11/18,12/03/2016 Influenza, Trivalent, High D ose, Split, Preservative Free, Intramuscular 12/22/2013 Influenza, Trivalent, IM (MDV) 12/05/2020,2012,12/14/2012 Influenza, Unspecified 11/30/2023 Tdap 09/01/2018 Social History Tobacco Use Types Packs/Day Years [...] 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 Not on file Not on file Last Filed Vital Signs Vital Sign Reading Time Taken Comments Blood Pressure 132/72 06/12/2024 3:15 PM CDT Pulse 81 01/12/2024 1:54 PM ASPHALT TAMPER Temperature 36.4 C (97.6 F) 01/12/2024 1:54 PM ASPHALT TAMPER Respiratory Rate 16 01/12/2024 1:54 PM ASPHALT TAMPER Oxygen Saturation 97% 01/12/2024 1:54 PM ASPHALT TAMPER Inhaled Oxygen Concentration - - Weight 80.1 kg (176 lb 8 oz) 01/12/2024 1:54 PM ASPHALT TAMPER Height 154.9 cm (5' 1 ) 01/12/2024 1:54 PM ASPHALT TAMPER Body Mass Index 33.35 01/12/2024 1:54 PM ASPHALT TAMPER Plan of Treatment Not on file Procedures Procedure Name Priority Date/Time Associated Diagnosis Comments HEPATITIS C ANTIBODY Routine 01/12/2024 2:41 PM ASPHALT TAMPER Need for hepatitis C screening test Encounter for hepatitis C screening test for low risk patient from Last 3 Months or Most Recently Relevant to Health Maintenance Results * Hepatitis C antibody Blood (01/12/2024 2:41 PM ASPHALT TAMPER) Hep C Ab Nonreactive Nonreactive Comment: Interpretive [...] revised on 2019. Blood 01/12/2024 2:41 PM ASPHALT TAMPER 01/12/2024 8:05 PM ASPHALT TAMPER Thea Raman NP LAB MICROBIOLOGY - GENERAL OR DERABLES Final Result Performing Organization Address City/State/ZIP [place] Phone Number [facility] [place] [phone] Department [place] [address] from Last 3 Months or Most Recently Relevant to Health Maintenance Insurance [employer] [place] [facility] [phone] [place] [address] [employer] Care Teams Licensed Veterinary Technician Relationship Specialty Start Date End Date Thea Raman NP PCP - General Family Medicine 01/12/24 Sally Manuel NP [address] [place] [id number] Nurse Practitioner 01/13/24
--- OUTSIDE RECORDS SUMMARY | 2024-06-29 15:55 | XMS_ITS | Clinical Summary ---
Author Organization [facility] Address [address] [place] [address] Care Team Providers Care Personnel Scheduler Name Role Phone Soham Dunlap MD Primary Care Provider [phone] Allergies Active Allergy Reactions Criticality Noted Date Comments Latex Hives High 06/20/2012 Medications Cetirizine 10 mg Capsule Take by mouth. Active budesonide-form oterol (SYMBICORT) 160-4.5 mcg/actuation HFA Aerosol Inhaler Take by inhalation. Active EPINEPHrine (EPIPEN 2-FRANCISCO) 0.3 mg/0.3 mL Auto-Injector EpiPen 2-Francisco 0.3 mg/0.3 mL injection, auto-injector Active budesonide-form oterol (SYMBICORT) 160-4.5 mcg/actuation HFA Aerosol Inhaler Take by inhalation. Active Cetirizine 10 mg Capsule Apply to affected area. 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, left 08/31/2017 Apocrine metaplasia of breast, left 08/31/2017 Microcalcification of left breast on mammogram 0 08/19/2017 Family History Medical History Relation Name Comments Breast Cancer Maternal Aunt in h er 60's Colon Cancer Maternal Grandmother Cancer Paternal Grandfather prostat e Cancer Paternal Grandmother liver Relation Name Status Comments Maternal Aunt Maternal Grandmother Paternal Grandfather Paternal Grandmother Social History Tobacco Use Types Packs/Day Years Used Date Smoking Tobacco: Former Cigarettes 2 2012 Smokeless Tobacco: Never Comments:1 pack/2 weeks Alcohol Use Standard Drinks/Week Comments Yes 0 (1 standard drink = 0.6 oz pur e alcohol) rare Comments No Sex and Gender Information Value Date Recorded Sex Assigned at Not on file Legal Sex Female 8:51 AM CDT Gender Identity Not on file Sexual Orientation Not on file Last Filed Vital Signs Vital Sign Reading Time Taken Comments Blood Pressure 143/92 11/03/2018 3:53 PM CDT Pulse 84 11/03/2018 3:53 PM CDT Temperature 37 C (98.6 F) 11/03/2018 3:53 PM CDT Respiratory Rate - - Oxygen Saturation 97% 11/03/2018 3:53 PM CDT Inhaled Oxygen Concentration - - Weight 63 kg (138 lb 12.8 oz) 11/03/2018 3:53 PM CDT Height 154.9 cm (5' 1 ) 11/03/2018 3:53 PM CDT Body Mass Index 26.23 11/03/2018 3:53 PM CDT Plan of Treatment Health Maintenance Due Date Last Done Comments HEPATITIS B VACCINES (1 of 3 - 19+ 3-dose series) 1996 HPV/Cotest (21-29) 1998 CERVICAL CANCER SCREENING 10/02/2007 HPV/Cotest (30-65) 10/02/2007 PAP SMEAR 10/02/2007 BREAST CANCER SCREENING 07/31/2020 08/01/19 20, 07/27/2018, 03/24/2018 COLORECTAL SCREENING 2022 Colorectal Cancer Screening 2022 FIT-DNA Q 3 years 2022 FIT/FOBT Q 1 year 2022 Flex Sig/CT Colonography Q 5 years 2022 INFLUENZA VACCINE (#1) 2023 4, 12/16/2012 DTAP/TDAP/TD VACCINES (2 - T d or Tdap) 09/01/2028 09/01/2018 HPV VACCINES Aged Out No longer eligi ble based on patient's age to complete this topic Procedures Procedure Name Priority Date/Time Associated Diagnosis Comments MAMMO SCREEN BILAT W OR WO CAD Routine 08/01/2019 Screening for breast cancer from Last 3 Months or Most Recently Relevant to Health Maintenance Results * MAMMO SCREEN BILAT W OR WO CAD (08/01/2019) Anatomical Region Laterality Modality Breast Bilateral Mammography Trena Marcelino Netocyrus DO MAMMO ORDERABLES Final Resu lt from Last 3 Months or Most Recently Relevant to Health Maintenance Insurance [employer] BLUE ACCESS/TRUE BLUE PPO Care Teams Personnel Scheduler Relationship Specialty [place] [address] [place] [phone] PCP - General Internal Medicine 08/19/17
--- OUTSIDE RECORDS SUMMARY | 2024-06-29 15:55 | XMS_ITS | Data Portability ---
Author Organization [facility] Address [address] [place] [address] Care Team Providers Care Marksmanship Instructor Name Role Phone CHADWICK DUNLAP Primary Care Provider Assessment Encounter Date Assessment Date Assessment LastModified by Organization Details LastModified Time 02/01/2024 02/01/2024 doxycycline x1 week get her seen by an ambulance dispatcher because of the facial swelling refer to GI for abdominal pain obtain the last blood work from her batch and furnace operator obtain records from her previous PCP follow up in 2 months. She is in the process of being worked up for a thyroid nodule I have told her to keep that thyroid ultrasound scheduled [email or web address] Not available 03/07/2024 23:31:22 04/06/2024 04/06/2024 doing much luis felipe r since last visit healthy lifestyle care instructions she has seen GI she has seen Allergy and immunology we will continue current therapy she will see me back in 6 months. She was advised to go get Pap smear and well-woman visit with her medical administrative specialist [email or web address] Not available 04/06/2024 20:46:08 05/24/2024 05/24/2024 She has pictures of what her face swells I am not sure what is going on but I am going to CT her sinuses and this episodic swelling from her neck up could she potentially have an intrathoracic process that could be causing some lymphatic episodic obstruction I do not know further recommendations pending CT scan [email or web address] Not available 06/10/2024 22:48:50 Plan of Treatment Reminders Order Date Submit Date Provider Last Modified By Organization Details Last Modified Time Details Appointments ANY 15 2024 03:15P M Chadwick Dunlap MD Not available Not available Not available Lab O&P (ova & parasites ), stool 12/03/ 2024 12/03/2 024 [facility], [address], [place], [address], 03/08/2024 15:09:40 C diff toxin A+B, qual IA, stool 2023 024 [facility], [address], [place], [address], 03/08/2024 13:09:34 gastroint estinal pathogens panel, culture, stool 2023 024 [facility], [address], [place], [address], 02/15/2024 17:09:29 Referral gastroent erologist referral 2023 024 [facility], [address], [address], [place], [address], 05/31/2024 12:43:17 ambulance dispatcher referral 2023 024 [facility], [address], [place], [address], 05/17/2024 14:46:03 Procedures None recorded. Surgeries None recorded. Imaging CT, neck, soft tissue, w/ contrast 2024 025 [facility], [address], [place], [address], 06/26/2024 13:50:12 CT, sinuses, w/o contrast 2024 025 [facility] ([facility]), [address], [place], [address], 06/16/2024 08:59:10 Medication Orders doxycycli ne hyclate 100 mg capsule 2023 024 [id number], [address], [place], [address], 05/24/2024 17:03:03 Patient TargetsNo targets recorded. Patient Instructions Encounter Date Encounter Id Patient Instructions Last Modified By Organization Details Last Modified Time 04/06/2024 [id number] A healthy lifestyle: care instructions [email or web address] Not available 04/06/2024 17:44:41 05/24/2024 [id number] A healthy lifestyle: care instructions [email or web address] Not available 05/24/2024 17:47:19 Reason for Referral Steamfitter Referral for Facia l swelling Referring Physician: Chadwick Dunlap, Internal Medicine, Encounter Date: 02/01/2024 Silverware Cleaner Referral for Abdominal pain Referring Physician: Chadwick Dunlap, Internal Medicine, Encounter Date: 02/01/2024 Results Created Date Observation Date Name Description Value Unit Range Abnormal Flag Note LastModifiedBy Organization Detail LastModifiedTime 02/10/20 24 02/11/2024 NTI O/P KIT (PP PINK/ MANUEL) nti O/P kit (pp pink/manuel) Commen t Ova and Misha ite trans port conta iner( s) were recei jorge with no test indic ated. If testi ng is requi red on this speci men, pleas e conta ct the [facility] Clien t Inqui ry/Te chnic al Servi wilfrido Depar tment to obtai n a REQUE ST FOR WRITT EN AUTHO RIZAT ION FORM. Not Available [facility] [address], [place], [address], 02/15/2024 17:09:27 02/10/20 24 02/11/2024 NTI CLEAN VIAL STL (PP WHITE ) nti clean vial stl (pp white) Commen t A clean vial stool speci men was recei jorge with no test indic ated. If testi ng is requi red on this speci men, pleas e conta ct the [facility] Clien t Inqui ry/Te chnic al Servi wilfrido Depar tment to obtai n a Reque st for Writt en Autho rizat ion Form. Not Available [facility] ([facility]) [address] [place], [address], 02/15/2024 17:09:28 02/10/20 24 02/13/2024 STOOL CULTU RE salmonella/s higella screen FINAL REPORT Not Available [facility] ([facility]) [address] [place], [address], 02/15/2024 17:09:29 02/10/20 24 02/13/2024 STOOL CULTU RE E coli shiga toxin EIA NEGATI VE negati ve Not Available [facility] ([facility]) [address] [place], [address], 02/15/2024 17:09:29 02/10/20 24 02/13/2024 STOOL CULTU RE result 1 COMMEN T No Salmo jennifer or Shige lla recov ered. Not Available [facility] ([facility]) [address] [place], [address], 02/15/2024 17:09:29 02/10/20 24 02/15/2024 STOOL CULTU RE campylobacte r culture FINAL REPORT Not Available [facility] ([facility]) [address] [place], [address], 02/15/2024 17:09:29 02/10/20 24 02/15/2024 STOOL CULTU RE result 1 COMMEN T No Campy lobac ter speci es isola carol. Not Available [facility] ([facility]) [address] [place], [address], 02/15/2024 17:09:29 03/05/19 25 03/08/2024 C DIFFI CILE TOXIN S A+B, EIA C difficile toxins A+B, EIA NEGATI VE negati ve Not Available [facility] ([facility]) [address] [place], [address], 03/08/2024 13:09:34 03/07/19 25 03/08/2024 OVA + MISHA ITE EXAM ova + parasite exam FINAL REPORT These resul ts were obtai cat using wet prepa ratio n(s) and trich christiane stain ed smear . This test does not inclu de testi ng for Crypt ospor idium parvu m, Cyclo spora , or Micro spori blanka. Not Available [facility] ([facility]) [address], [place], [address], 03/08/2024 15:09:40 03/07/19 25 03/08/2024 OVA + MISHA ITE EXAM result 1 COMMEN T No ova, cysts , or misha ites seen. One negat juliano speci men does not rule out the possi bilit y of a misha itic infec tion. Not Available [facility] ([facility]) [address], [place], [address], 03/08/2024 15:09:40 02/28/20 24 02/25/2024 US, thyro id No observ ation record ed. [facility] [address], [place], [address], 03/03/2024 12:26:00 06/17/19 25 06/15/2024 CT, sinus es, w/o contr ast No observ ation record ed. [facility] [address], [place], [address], 06/20/2024 17:59:39 06/17/19 25 06/15/2024 CT, sinus es, w/o contr ast No observ ation record ed. [facility] [address], [place], [address], 06/20/2024 17:59:40 Result Notes None recorded. Problems Name Problem SNOMED Code Status Onset Date Resolution Date Notes Provider Name and Address Organization Details Recorded Time Folliculitis 92345542 Active 2023 JENY Resendez, [place] - [facility] 4 15:37:58 Facial swelling 818725361 Active 2023 Martin White MA null, [place] - [facility] 4 15:37:58 Abdominal pain 14739737 Active 2023 Martin White [place] null, [place] [facility] 4 15:37:59 Diarrhea 55229382 Active 2023 Martin White [place], [place] [facility] 4 15:43:15 Asthma 993680614 Active 2024 Chadwick Dunlap MD Attn: Bassam alvarez,[address], [place], [address], [place] - [facility] 5 23:29:47 Rheumatoid arthritis 89177255 Active 2024 Chadwick Dunlap MD Attn: Bassam kim,[address], [place], [address], [place] - [facility] 5 23:29:54 Thyroid nodule 474670300 Active 2024 Chadwick Dunlap MD Attn: Bassam alvarez,[address], [place], [address], [place] - [facility] 5 23:31:07 Problem Notes None recorded. Procedures Surgical History Date Name Laterality Status Provider Name and Address Organization Details Recorded Time total replacement of hip completed Jose Alfredo Solomon [place] - [facility] 02/01/2024 14:47:07 Total hysterectomy completed Jose Alfredo Solomon [place] - [facility] 02/01/2024 14:47:17 Breast Surgery completed Jose Alfredo Solomon MA [place] - [facility] 02/01/2024 14:48:18 Imaging Results Imaging Date Name Status LastModified by Organiz ation Details LastModified Time 02/25/2024 US, thyroid completed SAI Solomon [facility] [address], [place], [address], 03/03/2024 12:26:00 06/15/2024 CT, sinuses, w/o contrast completed [facility] [address], [place], [address], 06/20/2024 17:59:39 06/15/2024 CT, sinuses, w/o contrast completed [facility] [address], [place], [address], 06/20/2024 17:59:40 Procedure Notes None recorded. Medical Equipment None Reported. Allergies Allergen ID Allergen Name Allergen Category Reaction Reaction Severity Criticality Documentation Date Start Date Code Code System Note Provider Name and Address Organization Details Recorded Time 17981003 dexametha sone medicatio n other severe Not available 02/01/2024 3264 RxNorm JENY Philip [place] - [facility] 14:40:34 536452 latex environme nt,medica tion hives itching rash Not available Not available Not available high 05/24/20242012 52048 91 RxNorm JENY Fox [place] - [facility] 17:16:38 Medications Name Sig Start Date Stop Date Status Note LastModified by Organization Details LastModified Time celecoxib 200 mg capsule TAKE 1 CAPSULE BY MOUTH TWICE A DAY FOR PAIN active Not Available Not Available No t Available amoxicillin 500 mg capsule TAKE 2 CAPSULES BY MOUTH NOW THEN 1 CAPSULE EVERY 6 HOURS UNTIL GONE 02/03 completed Not Available Not Available Not Available doxycycline hyclate 100 mg capsule Take 1 capsule twice a day by oral route for 7 days. 05/24 completed Not Available Not Available Not Available prednisone 20 mg tablet TAKE 1 TABLET BY MOUTH TWICE A DAY FOR 5 DAYS 02/03 completed Not Available Not Available Not Available prednisone 5 mg tablet TAKE 1-3 TABLETS BY MOUTH DAILY FOR ARTHRITIS CONTROL 02/03 completed Not Available Not Available Not Available phentermine 37.5 mg tablet TAKE 1 TABLET BY MOUTH EVERY DAY active Not Available Not Available No t Available tramadol 50 mg tablet TAKE 1-2 TABLETS BY MOUTH WITH OTC TYLENOL 3 TIMES DAILY FOR PAIN active Not Available Not Available No t Available famotidine 20 mg tablet TAKE 1 TABLET BY MOUTH TWICE A DAY 05/24 completed Not Available Not Available Not Available methotrexat e sodium 2.5 mg tablet TAKE 5 TABS IN AM AND PM BY ORAL ROUTE ONCE WEEKLY 05/24 completed Not Available Not Available Not Available pantoprazol e 40 mg tablet,colin yed release active Not Available Not Available Not Available folic acid 1 mg tablet TAKE 1 TABLET BY MOUTH EVERY DAY 05/24 completed Not Available Not Available Not Available montelukast 10 mg tablet TAKE 1 TABLET BY MOUTH EVERY DAY active Not Available Not Available No t Available mupirocin 2 % topical ointment APPLY TO AFFECTED AREA 3 TIMES A DAY FOR 10 DAYS 02/03 completed Not Available Not Available Not Available methylpredn isolone 4 mg tablets in a dose pack TAKE 6 TABLETS ON DAY 1 DIRECTED ON PACKAGE AND DECREASE BY 1 TAB EACH DAY FOR A TOTAL OF 6 DAYS 02/03 completed Not Available Not Available Not Available nitrofurant oin monohydrate /macrocryst als 100 mg capsule TAKE 1 CAPSULE BY MOUTH TWICE A DAY FOR 5 DAYS 02/03 completed Not Available Not Available Not Available Rybelsus 3 mg tablet TAKE 1 TABLET BY MOUTH EVERY DAY FOR 30 DAYS 05/24 completed Not Available Not Available Not Available Paxlovid 300 mg (150 mg x 2)-100 mg tablets in a dose pack TAKE 1 DOSE PACK BY MOUTH DIRECTED 02/03 completed Not Available Not Available Not Available Vitals Date Recorded Body height Body mass index (BMI) Body weight Heart rate Oxygen saturation Oxygen saturation in Arterial blood by Pulse oximetry Systolic blood pressure Diastolic blood pressure Provider Name and Address Organization Details Last Updated DateTime 4 154.94 cm 33.7 kg/m2 64298.8 8 g 71 /min 96 % 96 % 118 mm[Hg] 70 mm[Hg] Jose Alfredo Solomon [place] - [facility] 4 14:46:18 Date Recorded Body height Body mass index (BMI) Body weight Heart rate Oxygen saturation Oxygen saturation in Arterial blood by Pulse oximetry Systolic blood pressure Diastolic blood pressure Provider Name and Address Organization Details Last Updated DateTime 5 154.94 cm 33.6 kg/m2 42911.3 6 g 82 /min 99 % 99 % 120 mm[Hg] 70 mm[Hg] Sweetie Walter MA [place] - [facility] 5 16:56:00 Date Recorded Body height Body mass index (BMI) Body weight Heart rate Oxygen saturation Oxygen saturation in Arterial blood by Pulse oximetry Systolic blood pressure Diastolic blood pressure Provider Name and Address Organization Details Last Updated DateTime 154.94 cm 33 kg/m2 18886.3 1 g 77 /min 98 % 98 % 130 mm[Hg] 82 mm[Hg] Tuyet Short MA [place] - [facility] 17:14:48 Social History Question Answer Notes LastModified by Organizat ion Details LastModified Time Tobacco Smoking Status Former Smoker JENY Philip, [place] - [facility] 02/01/2024 14:43:10 Do You Have An Advance Directive? No Information not available 02/01/2024 What Is Your Level Of Alcohol Consumption? None Information not available 02/01/2024 Are You Blind Or Do You Have Difficulty Seeing? No Information not available 02/01/2024 What Is Your Level Of Caffeine Consumption? Occasional Information not available 02/01/2024 In The 14 Days Before Symptom Onset, Have You Had Close Contact With A Laboratory-confir med COVID-19 While That Case Was Ill? No Information not available 04/06/2024 In The 14 Days Before Symptom Onset, Have You Had Close Contact With A Person Who Is Under Investigation For COVID-19 While That Person Was Ill? No Information not available 04/06/2024 Have You Been To An Area Known To Be High Risk For COVID-19? No Information not available 04/06/2024 Are You Currently Employed? Yes Information not available 04/06/2024 Are You Deaf Or Do You Have Serious Difficulty Hearing? No Information not available 02/01/2024 What Type Of Diet Are You Following? REGULAR Information not available 02/01/2024 Are There Any Guns Present In Your Home? No Information not available 04/06/2024 What Was The Date Of Your Most Recent Tobacco Screening? 05/24/2024 [email or web address] Information not available 05/24/2024 What Is Your Current Pack Years? 10packyears Information not available 02/01/2024 What Is Your Relationship Status? Information not available 02/01/2024 Do You Use Your Seat Belt Or Car Seat Routinely? Yes Information not available 02/01/2024 Do You Have Smoke And Carbon Monoxide Detectors In Your Home? Yes Information not available 04/06/2024 How Much Tobacco Do You Smoke? 1 PPW Information not available 02/01/2024 Do You Feel Stressed (tense, Restless, Nervous, Or Anxious, Or Unable To Sleep At Night)? [id number] Information not available 02/01/2024 Do You Use Any Illicit Or Recreational Drugs? No Information not available 02/01/2024 Do You Use Sunscreen Routinely? Yes Information not available 04/06/2024 Has Tobacco Cessation Counseling Been Provided? No Information not available 02/01/2024 Do You Or Have You Ever Used Any Other Forms Of Tobacco Or Nicotine? No Information not available 02/01/2024 Sex: Female Functional Status Question Answer Note LastModified by Organization D etails LastModified Time Are you able to care for yourself? Yes Information n ot available 02/01/2024 Mental Status None recorded. Family History Nothing Reported. Medical History Condition Response Coronary Artery Disease N Other N High Blood Pressure N Atrial Fibrillation N Kidney or Bladder Problems N Thyroid Problems N GI Problems N Depression N COPD N Blood Clots N Have you had a mammogram in the last yea r? N Skin Problems N Anemia N Heart Attack (CT) N Anxiety Disorder N Diabetes N Muscle, Joint, or Bone Problems N Seizures/Epilepsy N Have you had a colonoscopy in the last 1 0 years? N Acid Reflux (GERD) N Cancer N Stroke N Asthma N Allergies N Have you had a PSA blood test in the las t year? N High Cholesterol N Hepatitis N Liver Disease N Headaches N Heart Failure N Osteoporosis N Gynecological HistoryNo gynecological history recorded. Obstetrics History GPAL:G 0 P 0 0 0 0 Immunizations Vaccine Type Date Status Note Provider Nam e and Address Organization Details Recorded Time Influenza, split virus, quadrivalent, preservative 6 completed Jose Alfredo Solomon [place], [place] [facility] 02/01/2024 14:49:20 Influenza, MDCK, quadrivalent, preservative 9 completed Jose Alfredo Solomon [place], [place] [facility] 02/01/2024 14:49:20 influenza, unspecified formulation 4 completed JENY [place] [facility] 02/01/2024 14:49:20 Tdap 9 completed Jose Alfredo Solomon MA loan[place] [facility] 02/01/2024 14:49:20 Influenza, high-dose, trivalent, PF 4 completed Jose Alfredo Solomon [place] loan[place] [facility] 02/01/2024 14:49:20 Influenza, split virus, trivalent, preservative 3 completed [place]ENY [place] [facility] 02/01/2024 14:49:20 Influenza, split virus, trivalent, preservative 3 completed [place]Y [place] [facility] 02/01/2024 14:49:20 Influenza, split virus, trivalent, PF 4 completed Jose Alfredo [place] [facility] 02/01/2024 14:49:20 Influenza, split virus, quadrivalent, PF 8 completed Jose Alfredo Solomon [place] loan[place] [facility] 02/01/2024 14:49:20 Influenza, split virus, quadrivalent, PF 0 completed Jose Alfredo Solomon [place] [facility] 02/01/2024 14:49:20 Influenza, split virus, quadrivalent, PF 7 completed JENY [place] [facility] 02/01/2024 14:49:20 Influenza, split virus, quadrivalent, PF 1 completed Jose Alfredo [place] [facility] 02/01/2024 14:49:20 Influenza, split virus, quadrivalent, PF 2 completed Jose Alfredo [place] [facility] 02/01/2024 14:49:20 Past Encounters Encounter ID Performer Location Encounter Start Date Encounter Closed Date Diagnosis/Indication Diagnosis SNOMED-CT Code Diagnosis ICD10 Code Diagnosis Note [id number] [facility] (Adult [facility]) [address] [place] [address] 02/01/2024 13:58:00 02/01/2024 15:43:43 Folliculitis 04158576 L73.9 Facial swelling 25221421 6 R22.0 Abdominal pain 58626508 R10.9 Diarrhea 45108530 R19.7 Thyroid nodule 468728048 E04.1 [id number] Chadwick Dunlap MD [facility] e - Faisal Blevins [address] [place] [address] 04/06/2024 16:13:19 04/06/2024 17:43:45 Body mass index 30+ - obesity 606575393 Z68.33 Obesity 644732704 E66.9 Asthma 616854614 J45.90 9 Abdominal pain 82132350 R10.9 [id number] Chadwick Dunlap MD [facility] (Adult Med) [address] [place] [address] 05/24/2024 16:54:52 05/24/2024 17:44:28 Body mass index 30+ - obesity 524119541 Z68.33 Obesity 691897478 E66.9 Chronic sinusitis 746226 00 J32.9 Lymphadenopathy 38189814 R59.9 Facial swelling 41284604 6 R22.0 Health Concerns Section Related Observation LastModified by Organization Detai ls LastModified Time None Recorded Concern Status LastModified by Organization Details LastModified Time None Recorded Advance Directives Directive N: Payers Encounter Date Sequence Insurance Name Policy Number Policy Wright Covered Member ID Wright Member ID Guarantor Name 02/01/2024 1 [employer] [id number] Lina Rayl [id number] Lina Rayl 02/01/2024 2 [place] [id number] Dajuan M Rayl [id number] Lina Rayl 04/06/2024 2 [place] [id number] Dajuan M Rayl [id number] Lina Rayl 04/06/2024 1 [employer] (PPO) [id number] Lina Rayl [id number] Lina Rayl 05/24/2024 2 [place] [id number] Dajuan M Rayl [id number] Lina Rayyaa 05/24/2024 1 [facility] [id number] Lina Bailey [id number] 1 Lina Bailey Notes Date Note Type Note Provider Name and Address Organization Details Recorded Time 02/01/2024 text/html had a tooth prob africa facial swelling day are working on finding out whether she was allergic to the crown she has had diarrhea off and on for several weeks with no blood in her stool some abdominal discomfort and she also has pain in her axillary region with a bump that is there. Was on medicine for rheumatoid arthritis but because of the facial swelling backed off a lot of it. History of some asthma in the past and that has been stable Chadwick Dunlap MD Attn: Accounting, [address] [place], [address], [place] [facility] 03/07/2024 23:31:42 04/06/2024 text/html folliculitis res olved facial swelling abated diarrhea resolved Chadwick Dunlap MD Attn: Accounting, [address] [place], [address], [place] [facility] 04/06/2024 20:46:40 05/24/2024 text/html Continues to hav e chronic sinusitis type symptomatology and swelling from the neck up periodically worse in the morning questionable lymphadenopathy of the neck from time to time she has seen the ambulance dispatcher she has been seeing the batch and furnace operator she was seen the oral surgeon because of the temporal profile if some of this happening after a crown Chadwick Dunlap MD Attn: [address] [place], [address], [place] [facility] 06/10/2024 22:49:10 OBGyn Episode No OBEpisode recorded.
--- OUTSIDE RECORDS SUMMARY | 2024-06-29 15:55 | XMS_ITS ---
Author Organization [facility] [place] ([address]) Address [address] [place] [address] Care Team Providers Care Logging Assistant Name Role Phone Soham Dunlap Primary Care Provider Lianet Blum Unavailable [phone] Vickie Oh Unavailable [phone] Allergies Allergen (clinical drug ingredient) Drug/Non Drug Allergy documented on EMR Reaction Allergy Type Onset Date Status dexamethasone DexAMETHasone other reaction Drug Allergy Active REASON FOR VISIT Facial swelling follow-up - improvement with Zyrtec and Famotidine Medications Medication SIG (Take, Route, Frequency, Duration) Notes Start Date End Date Status Albuterol Sulfate HFA 108 (90 Base) MCG/ACT 1 puff as needed Inhalation every 4 hrs Active Nebulizer - as directed Active B12 Active Famotidine 20 MG 1 tablet Orally Twic e a day for 30 days Active Montelukast Sodium 10 MG 1 tablet Orally Once a day for 30 days Active Cetirizine HCl 10 MG 1 tablet Orally Twi ce a day for 30 days Active Montelukast Sodium 10 MG TAKE 1 TABLET B Y MOUTH EVERY DAY Oral for 90 Days Active Vitamin D3 25 MCG (1000 UT) 1 tablet Ora lly Once a day Active Celecoxib 200 MG TAKE 1 CAPSULE BY MO UTH TWICE A DAY FOR PAIN Oral for 8 Days Active Social History Tobacco Use: Social History Observation Description Date Details (start date - stop date) Former Smoker NA - NA Tobacco Control (Standard) Question Answer Notes Tobacco use: Former smoker How long has it been since you last smoked? Sheba ter than 10 years Vital Signs Blood pressure systolic 144 mm Hg 03/23/19 25 Blood pressure diastolic 82 mm Hg 025 Height 61 in 03/23/2024 Weight 177.0 lbs 03/23/2024 BMI 33.44 kg/m2 03/23/2024 Oximetry 98 % 03/23/2024 Encounters Encounter Location Date Provider Diagnosis [facility] [address] [place] [address] 03/23/2024 Vickie Althea Mild persistent asthma, uncomplicated J45.30 ; Angioneurotic edema, subsequent encounter T78.3XXD ; Allergic rhinitis due to pollen J30.1 ; Allergic rhinitis due to animal (cat) (dog) hair and dander J30.81 ; Other allergic rhinitis J30.89 ; Other chronic allergic conjunctivitis H10.45 and Elevated blood-pressure reading, without diagnosis of hypertension R03.0 Assessments Encounter Date Diagnosis (ICD Code) Assessment Notes Treatment Notes Treatment Clinical Notes Section Notes 03/23/2024 Mild persistent asthma, uncomplicated (ICD-10 - J45.30) spirometry prior visit was normal. Continue prn Symbicort 03/23/2024 Angioneurotic edema, subsequent encounter (ICD-10 - T78.3XXD) Unclear cause for swelling. Considerations include dental work, autoimmune, viral, stress, or idiopathic. Request for labs sent to Dr. Stark's office before ordering further labs. We will also contact her hog scraper for components of the root canal. - Continue treatment with Zyrtec 10 mg BID, Famotidine 20 mg BID, and Singulair. - Patch testing using Berrybenka AC-1000 test patch testing delivery system (most common topical allergens causing delayed-type hypersensitivity reactions) read today at 72 hours with several sensitivities present and listed below. - She was instructed to keep her back dry and avoid topical steroids until patch testing is complete. - Return in 4 days for final patch read at 168 hours 03/23/2024 Allergic rhinitis due to pollen (ICD-10 - J30.1) Lina clearly suffers from atopic disease based upon our skin testing and clinical history. Accordingly, we have encouraged her medication regimen, discussed nasal washes and allergy-specific avoidance measures. We also discussed adjunctive therapies including subcutaneous, specific allergen immunotherapy as relates to the treatment and prevention of atopic disease. 03/23/2024 Allergic rhinitis due to animal (cat) (dog) hair and dander (ICD-10 - J30.81) Follow allergen avoidance, meds and consider SCIT as an adjunctive treatment to current regimen 03/23/2024 Other allergic rhinitis (ICD-10 - J30.89) Follow allergen avoidance, meds and consider SCIT as an adjunctive treatment to current regimen 03/23/2024 Other chronic allergic conjunctivitis (ICD-10 - H10.45) Given ocular signs and symptoms I encouraged allergy avoidance measures and meds as above. If symptoms persist, consider adding additional medications including intraocular antihistamine/mast cell stabilizer, PRN 03/23/2024 Elevated blood-pressure reading, without diagnosis of hypertension (ICD-10 - R03.0) BP elevated today without symptoms of urgency or emergency. Continue serial checks and follow-up with PCP Plan Of Treatment Medication Medication Name Sig Start Date Stop Date Notes Famotidine 20 MG 1 tablet Orally Twic e a day for 30 days Montelukast Sodium 10 MG 1 tablet Orally Once a day for 30 days Cetirizine HCl 10 MG 1 tablet Orally Twi ce a day for 30 days Treatment Notes Assessment Notes Mild persistent asthma, uncomplicated sp irometry prior visit was normal. Continue prn Symbicort Angioneurotic edema, subsequent encounte r Unclear cause for swelling. Considerations include dental work, autoimmune, viral, stress, or idiopathic. Request for labs sent to Dr. Stark's office before ordering further labs. We will also contact her hog scraper for components of the root canal. - Continue treatment with Zyrtec 10 mg BID, Famotidine 20 mg BID, and Singulair. - Patch testing using Berrybenka AC-1000 test patch testing delivery system (most common topical allergens causing delayed-type hypersensitivity reactions) read today at 72 hours with several sensitivities present and listed below. - She was instructed to keep her back dry and avoid topical steroids until patch testing is complete. - Return in 4 days for final patch read at 168 hours Allergic rhinitis due to pollen Lina oglesby suffers from atopic disease based upon our skin testing and clinical history. Accordingly, we have encouraged her medication regimen, discussed nasal washes and allergy-specific avoidance measures. We also discussed adjunctive therapies including subcutaneous, specific allergen immunotherapy as relates to the treatment and prevention of atopic disease. Allergic rhinitis due to ani mal (cat) (dog) hair and dander Follow allergen avoidance, meds and consider SCIT as an adjunctive treatment to current regimen Other allergic rhinitis Follow allergen avoidance, meds and consider SCIT as an adjunctive treatment to current regimen Other chronic allergic conjunctivitis Gi renato ocular signs and symptoms I encouraged allergy avoidance measures and meds as above. If symptoms persist, consider adding additional medications including intraocular antihistamine/mast cell stabilizer, PRN Elevated blood-pressure read ing, without diagnosis of hypertension BP elevated today without symptoms of urgency or emergency. Continue serial checks and follow-up with PCP Next Appt Details Follow Up: 4 Days, Reason: P atch Testing: Reading @ 168 hours (1 week) Procedure Notes * Category Sub-Category Detail Notes Patch Testing Patch testing ( [address] [place] [address] Core Series) was performed using the Berrybenka NA-1000 test patch testing delivery system (most common topical allergens causing delayed-type hypersensitivity reactions), Positive reactions graded:, +, Myroxylon pereirae resin / (Balsam [place]), SORAYA (2-Hydroxyethyl methacrylate), Chloroxylenol (PCMX) / (4-Chloro-3,5-xylenol (PCMX)), IR (irritant reaction) to, Formaldehyde, Benzyl alcohol, Bolton, Aisha absolute, at 72 hours, The patient will follow-up on the following dates for patch test readin03/27/2024 Progress Notes * SANCHEZ CarrieDOB:1975 ( 48 yo F)Acc No.[id number]:03/23/2024 Progress Notes Patient: Lina ENNIS Provider: ALICIA Aguilar :1975 A ge:48 Y S ex:Female Date:03/23/2024 Address:[address] [place], [place] [id number] Pcp:Soham Dunlap Subjective: * Chief Complaints: * F acial swelling follow-up - improvement with Zyrtec and Famotidine * HPI: * Introduction: I had the pleasure of seeing Carmen Bailey, a 48-year-old with rheumatoid arthritis and recurrent facial swelling who returns for patch test read #2 at 72 hours. S he is new to me, followed by Dr. Victor. She is alone for today's visit. She tolerates Zinc on her skin, but does not tolerate on her face. She tolerates zinc in a stick on her face. Swelling has improved per her report. She can now pucker her lips. She is taking Zyrtec 10 mg BID, FAmotidine BID and Singulair. May 2023 she had a root canal and a crown was then placed July 2023. October 02, 2023, she ate dinner at a restaurant and after returning home woke at 3 am with shortness of breath and tongue swelling. She took Benadryl without improvement. At 5 am she took more Benadryl with some improvement. Tongue swelling resolved by 9 am. She continues to feel swollen. She feels that the lower part of her face and upper right side of her face are swollen. The crown was removed November 2023 and continues to have facial swelling. Swelling was also present around her gums and has improved since the crown was removed. She is planning to have gold crown placed. She also reports fluid behind her ear on her left side. She was treated with steroids November 2023 with improvement in the swelling, but resumed after completing the steroids. She is taking montelukast for asthma and daily Zyrtec. She last took Benadryl about 1 month ago. She develops a rash with latex. Tape and band aids cause a rash. No history of shortness of breath with latex exposures. She was diagnosed with asthma in her 20s. Asthma flares Spring and Fall season. Skin testing was performed by Dr. Sargent many years ago. She received immunotherapy without improvement. She was hospitalized in 2014 for asthma. She is using a nebulizer about 3-4 times a year. She has Symbicort but not currently using. She has not used albuterol in a few months. She is taking methotrexate for RA and discontinued in November due to swelling. She follows with Dr. Stark. Exposure to eggs causes immediate diarrhea. Stool testing was performed by Dr. Samayoa's office.Today, she reports no fevers, chills, night sweats or other constitutional symptoms. * ROS: A LLERGY: Positive p er the HPI and history, otherwise unremarkable.? S PECIAL SENSES: Positve for n one. C ONSTITUTIONAL: Positive for n one. E NT: Positive p er the HPI and history, otherwise unremarkable.? R ESPIRATORY: Positive p er the HPI and history, otherwise unremakable.? O PHTHALMOLOGY: Positive for p er the HPI and history, otherwise unremarkable. E NDOCRINOLOGY: Positive for n one. C ARDIOLOGY: Positive for n one. G ASTROENTEROLOGY: Positive for n one. U ROLOGY: Positive for n one. D ERMATOLOGY: Positive for p er the HPI and history, otherwise unremakable. N EUROLOGY: Positive for n one. H EMATOLOGY/LYMPH: Positive for n one. M USCULOSKELETAL: Positive for n one. P SYCHOLOGY: Positive for n one. A ll other review of systems per the HPI and history, otherwise unremarkable. * Medical History: * Surgical History: H YSTERECTOMY, complete 2009HIP ARTHROSCOPY/SURGERY holecystectomy 2015Left Hamstring Repair 2020hip replacement 2021 * Hospitalization/Major Diagno stic Procedure: a sthma exacerbation * Family History: F ather: alive, diagnosed with Hypertension, Stroke, Atopic asthma w/o mention of status asthmaticus or acute exacerbation. M other: alive. Father: Heart Attack, Taver valve,. * Social History: S moking Are you a : f ormer smoker How long it has been since you last smoked? > 10 years T obacco Control (Standard) Tobacco use: F ormer smoker How long has it been since you last smoked? G reater than 10 years * Medications: T akingCetirizine HCl 10 MG Tablet 1 tablet Orally Twice a day Famotidine 20 MG Tablet 1 tablet Orally Twice a day Montelukast Sodium 10 MG Tablet 1 tablet Orally Once a day B12 Albuterol Sulfate HFA 108 (90 Base) MCG/ACT Aerosol Solution 1 puff as needed Inhalation every 4 hrs Nebulizer - Miscellaneous as directed Vitamin D3 25 MCG (1000 UT) Tablet 1 tablet Orally Once a day Celecoxib 200 MG Capsule TAKE 1 CAPSULE BY MOUTH TWICE A DAY FOR PAIN Oral Montelukast Sodium 10 MG Tablet TAKE 1 TABLET BY MOUTH EVERY DAY Oral Medication List reviewed and reconciled with the patientTaking Cetirizine HCl 10 MG Tablet 1 tablet Orally Twice a day Taking Famotidine 20 MG Tablet 1 tablet Orally Twice a day Taking Montelukast Sodium 10 MG Tablet 1 tablet Orally Once a day Taking B12 Taking Albuterol Sulfate HFA 108 (90 Base) MCG/ACT Aerosol Solution 1 puff as needed Inhalation every 4 hrs Taking Nebulizer - Miscellaneous as directed Taking Vitamin D3 25 MCG (1000 UT) Tablet 1 tablet Orally Once a day Taking Celecoxib 200 MG Capsule TAKE 1 CAPSULE BY MOUTH TWICE A DAY FOR PAIN Oral Taking Montelukast Sodium 10 MG Tablet TAKE 1 TABLET BY MOUTH EVERY DAY Oral Medication List reviewed and reconciled with the patient * Allergies: D exAMETHasone: other reactionno[Allergies Verified] Objective: * Vitals: B P:144/82mm Hg, HR:58/min, Pulse Oximetry:98%, Ht: 61 in, Wt: 177.0 lbs, BMI:33.44Index. * Examination: G eneral examination: General appearance: p leasant, well-developed, well-nourished, female, i n no apparent distress, speaking in full sentences. HEENT: c onjunctiva are normal bilaterally. Oral cavity: n ormal, no lesions. Breasts : n ot performed. Neurologic exam: u nremarkable. Skin: n ormal, no visible rash, dermatographism, urticaria, angioedema. Back: n ormal. Extremities: n ormal ROM, no clubbing, no cyanosis, no edema. Genitalia: n ot performed. Assessment: * Assessment: 1. A ngioneurotic edema, subsequent encounter - T78.3XXD (Primary) 2 . M ild persistent asthma, uncomplicated - J45.30 3 . A llergic rhinitis due to pollen - J30.1 4 . A llergic rhinitis due to animal (cat) (dog) hair and dander - J30.81 5 . O ther allergic rhinitis - J30.89 6 . O ther chronic allergic conjunctivitis - H10.45 7 . E levated blood-pressure reading, without diagnosis of hypertension - R03.0 Plan: * Treatment: 2. M ild persistent asthma, uncomplicated Notes: spirometry prior visit was normal. Continue prn Symbicort 3. A llergic rhinitis due to pollen Notes: Lina clearly suffers from atopic disease based upon our skin testing and clinical history. Accordingly, we have encouraged her medication regimen, discussed nasal washes and allergy-specific avoidance measures. We also discussed adjunctive therapies including subcutaneous, specific allergen immunotherapy as relates to the treatment and prevention of atopic disease. 4. A llergic rhinitis due to animal (cat) (dog) hair and dander Notes: Follow allergen avoidance, meds and consider SCIT as an adjunctive treatment to current regimen 5. O ther allergic rhinitis Notes: Follow allergen avoidance, meds and consider SCIT as an adjunctive treatment to current regimen 6. O ther chronic allergic conjunctivitis Notes: Given ocular signs and symptoms I encouraged allergy avoidance measures and meds as above. If symptoms persist, consider adding additional medications including intraocular antihistamine/mast cell stabilizer, PRN 7. E levated blood-pressure reading, without diagnosis of hypertension Notes: BP elevated today without symptoms of urgency or emergency. Continue serial checks and follow-up with PCP * Procedures: P atch Testing: Patch testing ([id number]-Dgzhgyop Core Series) w as performed using the Berrybenka NA-1000 test patch testing delivery system (most common topical allergens causing delayed-type hypersensitivity reactions), Positive reactions graded:, +, Myroxylon pereirae resin / (Balsam [place]), SORAYA (2- Hydroxyethyl methacrylate), Chloroxylenol (PCMX) / (4-Chloro-3,5-xylenol (PCMX)), IR (irritant reaction) to, Formaldehyde, Benzyl alcohol, Bolton, Aisha absolute, at 72 hours, The patient will follow-up on the following dates for patch test readin03/27/2024. ? * Procedure Codes: G 8427 DOC MEDS VERIFIED W/PT OR RE * Preventive Medicine: Counseling: E xercise L imit exercise while patch test is secured, Avoid bathing, showering while patch test is secured and after removal during read phase of procedure through 168 hours. M edication instruction: W atch for side effects of prescribed medications, Nasal steroid/antihistamine instruction: avoid septum, Hold oral/topical corticosteroids until after allergen patch testing. P atient education material sent to portal? Y es C are goal follow up plan Above Normal BMI Follow-up D ietary needs education B P Management: FIRST HYPERTENSIVE BP READING FOLLOW-UP PLAN: F ollow-up 1 month REFERRAL TO ALTERNATIVE / PRIMARY CARE PROVIDER: Braden eferral to general physician * Follow Up: 4 Days (Reason: Patch Testing: Reading @ 168 hours (1 week)) * Billing Information: * Visit Code: 02659 Office Visit, Est Pt., Level 3. Modifiers: 25 * Procedure Codes: G8427 DOC MEDS VERIFIED W/PT OR RE. Images * mobile_03/23/2024 16:23:33 * NFORMATICIST Electronically co-signed by Billy Adams MD, FAAAAI on 03/26/2024 at 10:14 PM BIOINFORMATICIST Sign off status: Completed true * Provider: ALICIA Aguilar Date: 0 03/23/2024 Generated for Sherry randall/Cherri/eTransmitting on: 0 06/29/2024 03:55 PM CDT History and Physical Notes * HPI (History of Present Illness) Category Sub-Category Detail Notes Category Not es *Introduction I had the pleasure o f seeing Lina Bailey, a 48-year-old with rheumatoid arthritis and recurrent facial swelling who returns for patch test read #2 at 72 hours. She is new to me, followed by Dr. Victor. She is alone for today's visit. She tolerates Zinc on her skin, but does not tolerate on her face. She tolerates zinc in a stick on her face. Swelling has improved per her report. She can now pucker her lips. She is taking Zyrtec 10 mg BID, FAmotidine BID and Singulair. May 2023 she had a root canal and a crown was then placed July 2023. October 02, 2023, she ate dinner at a restaurant and after returning home woke at 3 am with shortness of breath and tongue swelling. She took Benadryl without improvement. At 5 am she took more Benadryl with some improvement. Tongue swelling resolved by 9 am. She continues to feel swollen. She feels that the lower part of her face and upper right side of her face are swollen. The crown was removed November 2023 and continues to have facial swelling. Swelling was also present around her gums and has improved since the crown was removed. She is planning to have gold crown placed. She also reports fluid behind her ear on her left side. She was treated with steroids November 2023 with improvement in the swelling, but resumed after completing the steroids. She is taking montelukast for asthma and daily Zyrtec. She last took Benadryl about 1 month ago. She develops a rash with latex. Tape and band aids cause a rash. No history of shortness of breath with latex exposures. She was diagnosed with asthma in her 20s. Asthma flares Spring and Fall season. Skin testing was performed by Dr. Sargent many years ago. She received immunotherapy without improvement. She was hospitalized in 2014 for asthma. She is using a nebulizer about 3-4 times a year. She has Symbicort but not currently using. She has not used albuterol in a few months. She is taking methotrexate for RA and discontinued in November due to swelling. She follows with Dr. Stark. Exposure to eggs causes immediate diarrhea. Stool testing was performed by Dr. Samayoa's office. Today, she reports no fevers, chills, night sweats or other constitutional symptoms Examination Category Sub-Category Detail Notes Category Not es General examination HEENT: conjunctiva are nallely l bilaterally Extremities: normal ROM, no clubb ing, no cyanosis, no edema General appearance: pleasant, well-devel oped, well-nourished, female, in no apparent distress, speaking in full sentences Skin: normal, no visible r robert, dermatographism, urticaria, angioedema Neurologic exam: unremarkable Oral cavity: normal, no lesions Breasts : not performed Back: normal Genitalia: not performed
--- OUTSIDE RECORDS SUMMARY | 2024-06-29 15:56 | XMS_ITS ---
Author Organization [facility] [place] ([address]) Address [address] [place] [address] Care Team Providers Care Software Engineer Web Applications Name Role Phone Soham Dunlap Primary Care Provider Lianet Blum Unavailable [phone] Mychal Marrero Unavailable [phone] Allergies Allergen (clinical drug ingredient) Drug/Non Drug Allergy documented on EMR Reaction Allergy Type Onset Date Status dexamethasone DexAMETHasone other reaction Drug Allergy Active REASON FOR VISIT Facial swelling follow-up - improvement with Zyrtec and Famotidine. Here for final patch test read Medications Medication SIG (Take, Route, Frequency, Duration) Notes Start Date End Date Status Albuterol Sulfate HFA 108 (90 Base) MCG/ACT 1 puff as needed Inhalation every 4 hrs Active Nebulizer - as directed Active Vitamin D3 25 MCG (1000 UT) 1 tablet Ora lly Once a day Active Celecoxib 200 MG TAKE 1 CAPSULE BY MO UTH TWICE A DAY FOR PAIN Oral for 8 Days Active Montelukast Sodium 10 MG TAKE 1 TABLET B Y MOUTH EVERY DAY Oral for 90 Days Active B12 Active Cetirizine HCl 10 MG 1 tablet Orally Twi ce a day for 30 days Active Famotidine 20 MG 1 tablet Orally Twic e a day for 30 days Active Montelukast Sodium 10 MG 1 tablet Orally Once a day for 30 days Active Social History Tobacco Use: Social History Observation Description Date Details (start date - stop date) Former Smoker NA - NA Tobacco Control (Standard) Question Answer Notes Tobacco use: Former smoker How long has it been since you last smoked? She[place] ter than 10 years Vital Signs Blood pressure systolic 134 mm Hg 03/27/19 25 Blood pressure diastolic 84 mm Hg 025 Height 61 in 03/27/2024 Weight 173.4 lbs 03/27/2024 BMI 32.76 kg/m2 03/27/2024 Oximetry 97 % 03/27/2024 Encounters Encounter Location Date Provider Diagnosis [facility] [address] [facility] [address] [place] [address] 03/27/2024 Mychal Marrero Mild persistent asthma, uncomplicated J45.30 ; Angioneurotic [...] Treatment Notes Treatment Clinical Notes Section Notes 03/27/2024 Mild persistent asthma, uncomplicated (ICD-10 - J45.30) spirometry prior visit was normal. Continue prn Symbicort 03/27/2024 Angioneurotic edema, subsequent encounter (ICD-10 - T78.3XXD) Unclear cause for swelling. Considerations include dental work, autoimmune, viral, stress, or idiopathic. Request for labs sent to Dr. Stark's office before ordering further labs. We will also contact her area mechanic for components of the root canal. - Continue treatment with Zyrtec 10 mg BID, Famotidine 20 mg BID, and Singulair. - Patch testing using [employer] AC-1000 test patch testing delivery system (most common topical allergens causing delayed-type hypersensitivity reactions) read today at 148 hours with results as below. Printed information on how to recognize and avoid these contact allergens was provided to the patient, and safe product lists from the ACDS will be e-mail to him separately - Return in 1 month for E&M 03/27/2024 Allergic rhinitis due to pollen (ICD-10 - J30.1) Lina clearly suffers from atopic disease based upon our skin testing and clinical history. Accordingly, we have encouraged her medication regimen, discussed nasal washes and allergy-specific avoidance measures. We also discussed adjunctive therapies including subcutaneous, specific allergen immunotherapy as relates to the treatment and prevention of atopic disease. 03/27/2024 Allergic rhinitis due to animal (cat) (dog) hair and dander (ICD-10 - J30.81) Follow allergen avoidance, meds and consider SCIT as an adjunctive treatment to current regimen 03/27/2024 Other allergic rhinitis (ICD-10 - J30.89) Follow allergen avoidance, meds and consider SCIT as an adjunctive treatment to current regimen 03/27/2024 Other chronic allergic conjunctivitis (ICD-10 - H10.45) Given ocular signs and symptoms I encouraged allergy avoidance measures and meds as above. If symptoms persist, consider adding additional medications including intraocular antihistamine/mast cell stabilizer, PRN 03/27/2024 Elevated blood-pressure reading, without diagnosis of hypertension (ICD-10 - R03.0) BP elevated today without symptoms of urgency or emergency. Continue serial checks and follow-up with PCP Plan Of Treatment Medication Medication Name Sig Start Date Stop Date Notes Cetirizine HCl 10 MG 1 tablet Orally Twi ce a day for 30 days Famotidine 20 MG 1 tablet Orally Twic e a day for 30 days Montelukast Sodium 10 MG 1 tablet Orally Once a day for 30 days Treatment Notes Assessment Notes Mild persistent asthma, uncomplicated sp irometry prior visit was normal. Continue prn Symbicort Angioneurotic edema, subsequent encounte r Unclear cause for swelling. Considerations include dental work, autoimmune, viral, stress, or idiopathic. Request for labs sent to Dr. Stark's office before ordering further labs. We will also contact her area mechanic for components of the root canal. - Continue treatment with Zyrtec 10 mg BID, Famotidine 20 mg BID, and Singulair. - Patch testing using [employer] AC-1000 test patch testing delivery system (most common topical allergens causing delayed-type hypersensitivity reactions) read today at 148 hours with results as below. Printed information on how to recognize and avoid these contact allergens was provided to the patient, and safe product lists from the ACDS will be e-mail to him separately - Return in 1 month for E&M Allergic rhinitis due to pollen Lina oglesby [...] PCP Next Appt Details Follow Up: 4 Weeks, Reason: Evaluation and Management Procedure Notes * Category Sub-Category Detail Notes Patch Testing Patch testing (-[address] [place] [address] Core Series) was performed using the [employer] NA-1000 test patch testing delivery system (most common topical allergens causing delayed-type hypersensitivity reactions), Positive reactions graded:+ Formaldehyde,SORAYA (2-Hydroxyethyl methacrylate) at 168 hours (1 week),Pictures below,The information from patch testing was placed into the [place] registry and a report regarding our clinical findings was e-mailed to the patient, Progress Notes * SANCHEZ CarrieDOB:1975 ( 48 yo F)Acc No.[id number]:03/27/2024 Progress Note Patient: Lina ENNIS Provider: Juan Manuel Marrero PA-C :1975 A ge:48 Y S ex:Female Date:03/27/2024 Address:[address] [place], [place] [id number] Pcp:Soham Dunlap Subjective: * Chief Complaints: * F acial swelling follow-up - improvement with Zyrtec and Famotidine. Here for final patch test read * HPI: * Introduction: I had the pleasure of seeing Carmen Bailey, a 48-year-old with rheumatoid arthritis and recurrent facial swelling who returns for patch test read at 148 hours. S he is new to me, [...] History: * Surgical History: H YSTERECTOMY, complete ARTHROSCOPY/SURGERY holecystectomy 2015Left Hamstring Repair 2020hip replacement [...] other reactionno[Allergies Verified] Objective: * Vitals: B P:134/84mm Hg, HR:97/min, Pulse Oximetry:97%, Ht: 61 in, Wt: 173.4 lbs, BMI:32.76Index. * Examination: G eneral examination: General appearance: [...] * Procedures: P atch Testing: Patch testing (DA-8084-Unwmedrw Core Series) w as performed using the [employer] NA-1000 test patch testing delivery system (most common topical allergens causing delayed-type hypersensitivity reactions), Positive reactions graded:+ Formaldehyde,SORAYA (2-Hydroxyethyl methacrylate) at 168 hours (1 week),Pictures below,The information from patch testing was placed into the [place] registry and a report regarding our clinical findings was e-mailed to the patient, .? * Procedure Codes: G 8427 DOC MEDS [...] REFERRAL TO ALTERNATIVE / PRIMARY CARE PROVIDER: R eferral to general physician * Follow Up: 4 Weeks (Reason: Evaluation and Management) * Billing Information: * Visit Code: 34470 Office Visit, Est Pt., Level 3. Modifiers: 25 * Procedure Codes: G8427 DOC MEDS VERIFIED W/PT OR RE. Images * 03/27/2024 Patch Test Read 3 * TING AND COATING WORKER Sign off status: Completed true * Provider: Juan Manuel Marrero PA-C Date: 0 03/27/2024 Generated for Sherry randall/Cherri/eTransmitting on: 0 06/29/2024 03:55 PM CDT History and Physical Notes * HPI (History of Present Illness) Category Sub-Category Detail Notes Category Not es *Introduction I had the pleasure o f seeing Lina Bailey, a 48-year-old with rheumatoid arthritis and recurrent facial swelling who returns for patch test read at 148 hours. She is new to me, followed [...]
--- OUTSIDE RECORDS SUMMARY | 2024-06-29 15:56 | XMS_ITS ---
Author Organization [facility] [place] ([address]) Address [address] [place] [address] Care Team Providers Care General Farmer Name Role Phone Soham Dunlap Primary Care Provider Lianet Blum Unavailable [phone] Allergies Allergen (clinical drug ingredient) Drug/Non Drug [...] hrs Active Nebulizer - as directed Active Famotidine 20 MG 1 tablet Orally Twic e a day for 30 days Active Vitamin D3 25 MCG (1000 UT) 1 tablet Ora lly Once a day Active Cetirizine HCl 10 MG 1 tablet Orally Twi ce a day for 30 days Active Celecoxib 200 MG TAKE 1 CAPSULE BY MO UT TWICE A DAY FOR PAIN Oral for 8 Days Active Montelukast Sodium 10 MG TAKE 1 TABLET B Y MOUTH EVERY DAY Oral for 90 Days Active Montelukast Sodium 10 MG 1 tablet Orally Once a day for 30 days Active B12 Active Social History Tobacco Use: Social History Observation Description Date Details (start date - stop date) Former Smoker NA - NA Tobacco Control (Standard) Question Answer Notes Tobacco use: Former smoker How long has it been since you last smoked? Gre[place] ter than 10 years Vital Signs Blood pressure systolic 154 mm Hg 03/22/19 25 Blood pressure diastolic 84 mm Hg 025 Height 61 in 03/22/2024 Weight 177.0 lbs 03/22/2024 BMI 33.44 kg/m2 03/22/2024 Oximetry 96 % 03/22/2024 Encounters Encounter Location Date Provider Diagnosis [facility] [address] [facility] [address] [place] [address] 03/22/2024 Lianet Victor Angioneurotic edema, subsequent encounter T78.3XXD ; Dermatitis, unspecified L30.9 ; Mild persistent asthma, uncomplicated J45.30 ; Allergic rhinitis due to pollen J30.1 ; Allergic rhinitis due to animal (cat) (dog) hair and dander J30.81 ; Other allergic rhinitis J30.89 ; Other chronic allergic conjunctivitis H10.45 and Elevated blood-pressure reading, without diagnosis of hypertension R03.0 Assessments Encounter Date Diagnosis (ICD Code) Assessment Notes Treatment Notes Treatment Clinical Notes Section Notes 03/22/2024 Angioneurotic edema, subsequent encounter (ICD-10 - T78.3XXD) 03/22/2024 Dermatitis, unspecified (ICD-10 - L30.9) Unclear cause for swelling. Considerations include dental work, autoimmune, viral, stress, or idiopathic. Request for labs sent to Dr. Stark's office. Records were reviewed with comonents of the root canal. - Continue treatment with Zyrtec 10 mg BID, Famotidine 20 mg BID, and Singulair. - Patch testing was removed today at 48 and sensitivites are listed below. - Keep back dry and avoid topical and oral steroids. -Return tomorrow for read at 72 hours 03/22/2024 Mild persistent asthma, uncomplicated (ICD-10 - J45.30) spirometry at her initial visit was normal. Continue prn Symbicort 03/22/2024 Allergic rhinitis due to pollen (ICD-10 - J30.1) Lina clearly suffers from atopic disease based upon our skin testing and clinical history. Accordingly, we have encouraged her medication regimen, discussed nasal washes and allergy-specific avoidance measures. We also discussed adjunctive therapies including subcutaneous, specific allergen immunotherapy as relates to the treatment and prevention of atopic disease. 03/22/2024 Allergic rhinitis due to animal (cat) (dog) hair and dander (ICD-10 - J30.81) Follow allergen avoidance, meds and consider SCIT as an adjunctive treatment to current regimen 03/22/2024 Other allergic rhinitis (ICD-10 - J30.89) 03/22/2024 Other chronic allergic conjunctivitis (ICD-10 - H10.45) Given ocular signs and symptoms I encouraged allergy avoidance measures and meds as above. If symptoms persist, consider adding additional medications including intraocular antihistamine/mast cell stabilizer, PRN 03/22/2024 Elevated blood-pressure reading, without diagnosis of hypertension (ICD-10 - R03.0) BP elevated today without symptoms of urgency or emergency. Continue serial checks and follow-up with PCP Plan Of Treatment Medication Medication Name Sig Start Date Stop Date Notes Famotidine 20 MG 1 tablet Orally Twic e a day for 30 days Cetirizine HCl 10 MG 1 tablet Orally Twi ce a day for 30 days Montelukast Sodium 10 MG 1 tablet Orally Once a day for 30 days Treatment Notes Assessment Notes Dermatitis, unspecified Unclear cause for swelling. Considerations include dental work, autoimmune, viral, stress, or idiopathic. Request for labs sent to Dr. Stark's office. Records were reviewed with comonents of the root canal. - Continue treatment with Zyrtec 10 mg BID, Famotidine 20 mg BID, and Singulair. - Patch testing was removed today at 48 and sensitivites are listed below. - Keep back dry and avoid topical and oral steroids. -Return tomorrow for read at 72 hours Mild persistent asthma, uncomplicated sp irometry at her initial visit was normal. Continue prn Symbicort Allergic rhinitis due to pollen Lina oglesby [...] with PCP Next Appt Details Follow Up: 1 day, Reason: Pa tch Testing: Reading @ 72 hours Procedure Notes * Category Sub-Category Detail Notes Patch Testing Patch testing (10 -[place] Core Series) Dorothy Vyas 03/22/2024 08:40:29 AM ORNAMENTAL PLASTERER HELPER >, was performed using the [employer] NA-1000 test patch testing delivery system (most common topical allergens causing delayed-type hypersensitivity reactions), Positive reactions graded:, +, Myroxylon pereirae resin / (Balsam [place]), SORAYA (2-Hydroxyethyl methacrylate), Propolis, The patient will follow-up on the following dates for patch test reading:, at 72 hours, Pictures below Progress Notes * SANCHEZ CarrieDOB:1975 ( 48 yo F)Acc No.[id number]:03/22/2024 Progress Notes Patient: Lina ENNIS Provider: Ramon Victor MD :1975 A ge:48 Y S ex:Female Date:03/22/2024 Address:[address] [place], [place] [id number] Pcp:Soham Dunlap Subjective: * Chief Complaints: * F acial swelling follow-up - improvement with Zyrtec and Famotidine * HPI: * Introduction: I had the pleasure of seeing Carmen Bailey, a 48-year-old with rheumatoid arthritis and recurrent facial swelling who returns for f/u evaluation of allergic triggers for facial swelling. She was last evaluated 03-20-2024. Since her initial visit, she reports facial swelling has improved, but not resolved. She can now pucker her lips. She brought photos today which showed white spots around her prior crown. Dental filling list reviewed and all components or relatives are present on patch testing except zinc oxide. She reports using zinc oxide sunscreen stick on her face without rash.? Using zinc oxide regular sunscreen causes a rash. She is taking Zyrtec 10 mg BID, Famotidine BID and Singulair. May 2023 she had [...] but resumed after completing the steroids. She develops a rash with latex. Tape [...] other reactionno[Allergies Verified] Objective: * Vitals: B P:154/84mm Hg, HR:72/min, Pulse Oximetry:96%, Ht: 61 in, Wt: 177.0 lbs, BMI:33.44Index. [...] n ot performed. Assessment: * Assessment: 1. D ermatitis, unspecified - L30.9 (Primary) 2 . A ngioneurotic edema, subsequent encounter - T78.3XXD 3 . M ild persistent asthma, uncomplicated - J45.30? 4. A llergic rhinitis due to pollen - J30.1 5 . A llergic rhinitis due to animal (cat) (dog) hair and dander - J30.81 6 . O ther allergic rhinitis - J30.89 7 . O ther chronic allergic conjunctivitis - H10.45 8 . E levated blood-pressure reading, without diagnosis of hypertension - R03.0 Plan: * Treatment: 2. A ngioneurotic edema, subsequent encounter Continue Cetirizine HCl Tablet, 10 MG, 1 tablet, Orally, Twice a day, 30 days, 60 Tablet, Refills 0; C ontinue Famotidine Tablet, 20 MG, 1 tablet, Orally, Twice a day, 30 days, 60 Tablet, Refills 0; C ontinue Montelukast Sodium Tablet, 10 MG, 1 tablet, Orally, Once a day, 30 days, 30, Refills 0. 3. M ild persistent asthma, uncomplicated Notes: spirometry at her initial visit was normal. Continue prn Symbicort 4. A llergic rhinitis due to pollen Notes: Lina clearly suffers from atopic disease based upon our skin testing and clinical history. Accordingly, we have encouraged her medication regimen, discussed nasal washes and allergy-specific avoidance measures. We also discussed adjunctive therapies including subcutaneous, specific allergen immunotherapy as relates to the treatment and prevention of atopic disease. 5. A llergic rhinitis due to animal (cat) [...] * Procedures: P atch Testing: Patch testing (KA-0900-Xvguvgyo Core Series) Dorothy Galvan 03/22/2024 08:40:29 AM ORNAMENTAL PLASTERER HELPER >, was performed using the [employer] NA-1000 test patch testing delivery system (most common topical allergens causing delayed- type hypersensitivity reactions), Positive reactions graded:, +, Myroxylon pereirae resin / (Balsam [place]), SORAYA (2-Hydroxyethyl methacrylate), Propolis, The patient will follow-up on the following dates for patch test reading:, at 72 hours, Pictures below. * Procedure Codes: G 8427 DOC MEDS VERIFIED W/PT OR RE * Preventive Medicine: Counseling: E xercise A void bathing, showering while patch test is secured [...] TO ALTERNATIVE / PRIMARY CARE PROVIDER: R sb to general physician * Follow Up: 1 day (Reason: Patch Testing: Reading @ 72 hours) * Billing Information: * Visit Code: 77221 Office Visit, Est Pt., Level 3. Modifiers: 25 * Procedure Codes: G8427 DOC MEDS VERIFIED W/PT OR RE. Images * 03/22/2024 08:07:06 * MENTAL PLASTERER HELPER Sign off status: Completed true * Provider: Ramon Victor MD Date: 0 03/22/2024 Generated for Sherry randall/Cherri/Louisitting on: 0 06/29/2024 03:55 PM CDT History and Physical Notes * HPI (History of Present Illness) Category Sub-Category Detail Notes Category Not es *Introduction I had the pleasure o f seeing Lina Bailey, a 48-year-old with rheumatoid arthritis and recurrent facial swelling who returns for f/u evaluation of allergic triggers for facial swelling. She was last evaluated 03-20-2024. Since her initial visit, she reports facial swelling has improved, but not resolved. She can now pucker her lips. She brought photos today which showed white spots around her prior crown. Dental filling list reviewed and all components or relatives are present on patch testing except zinc oxide. She reports using zinc oxide sunscreen stick on her face without rash. Using zinc oxide regular sunscreen causes a rash. She is taking Zyrtec 10 mg BID, Famotidine BID and Singulair. May 2023 she had [...] but resumed after completing the steroids. She develops a rash with latex. Tape [...]
--- OUTSIDE RECORDS SUMMARY | 2024-06-29 15:56 | XMS_ITS | Patient Health Record ---
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 Name Role Phone Soham Dunlap Primary Care Provider UnavailLianet Mae Unavailable [phone] Mychal Marrero Unavailable [phone] Vickie Oh Unavailable [phone] Keyla Mcneil Unavailable [phone] Allergies Allergen (clinical drug ingredient) Drug/Non Drug Allergy documented on EMR Reaction Allergy Type Onset Date Status dexamethasone DexAMETHasone other reaction Drug Allergy Active Results Component Value Reference Range Notes Spirometry Reviewed date: Interpretation:Normal Performing Lab: Notes/Report: Normal SpiroPreBronchodilator_FVC 2.72 SpiroPostBronchodilator_FEF25_75 0 SpiroPreBronchodilator_FEF25_75 2.02 SpiroPreBronchodilator_FEV1 2.13 SpiroPrecentPredictionPost_FEF25_75 0 SpiroPrecentPredictionPost_FEV1 0 SpiroPrecentPredictionPost_FEV1_OVER_FVC 0 SpiroPrecentPredictionPost_FVC 0 SpiroPrecentPredictionPre_FEF25_75 68.5 SpiroPrecentPredictionPre_FEV1 83.5 SpiroPrecentPredictionPre_FEV1_OVER_FVC 93.5 SpiroPrecentPredictionPre_FVC 90.1 SpiroPredicted_FEF25_75 2.95 SpiroPreBronchodilator_FEV1_OVER_FVC 78.27 SpiroPreBronchodilator_PEF 4.52 SpiroPostBronchodilator_FVC 0 SpiroPostBronchodilator_FEV1 0 SpiroPostBronchodilator_FEV1_OVER_FVC 0 SpiroPostBronchodilator_PEF 0 SpiroPredicted_FVC 3.02 SpiroPredicted_FEV1 2.55 SpiroPredicted_FEV1_OVER_FVC 83.69 SpiroPredicted_PEF 5.71 Reason For Referral No Information Medications Medication SIG (Take, Route, Frequency, Duration) Notes Start Date End Date Status B12 Active Albuterol Sulfate HFA 108 (90 Base) MCG/ACT [...] EVERY DAY Oral for 90 Days Active Cetirizine HCl 10 MG 1 tablet [...] has it been since you last smoked? [place] ter than 10 years Problems Problem Type SNOMED Code ICD Code Onset Dates Problem Status W/U Status Risk Notes Problem Chronic allergic conjunctivitis (30224949) Other chronic allergic conjunctivitis (H10.45) Active confirmed Problem Allergic rhinitis caused by pollen (disorder) (23280436) Allergic rhinitis due to pollen (J30.1) Active confirmed Problem Allergic rhinitis (94179864) Other allergic rhinitis (J30.89) Active confirmed Problem Uncomplicated mild persistent asthma (460770218) Mild persistent asthma, uncomplicated (J45.30) Active confirmed Problem Rheumatoid arthritis (07808392) Rheumatoid arthritis, unspecified (M06.9) Active confirmed Problem Angioneurotic edema (27066834) Angioneurotic edema, subsequent encounter (T78.3XXD) Active confirmed Problem Allergic rhinitis caused by animal hair and dander (521943321260720) Allergic rhinitis due to animal (cat) (dog) hair and dander (J30.81) Active confirmed Vital Signs Oximetry 97 % 03/27/2024 Blood pressure diastolic 84 mm Hg 03/27/2024 Height 61 in 03/27/2024 Blood pressure systolic 134 mm Hg 03/27/2024 Weight 173.4 lbs 03/27/2024 BMI 32.76 kg/m2 03/27/2024 Encounters Encounter Location Date Provider Diagnosis [facility] [address] [place] [id number] 02/15/2024 Lianet Victor Mild persistent asthma, uncomplicated J45.30 ; Angioneurotic edema, initial encounter T78.3XXA ; Allergic rhinitis due to pollen J30.1 ; Allergic rhinitis due to animal (cat) (dog) hair and dander J30.81 ; Other allergic rhinitis J30.89 and Other chronic allergic conjunctivitis H10.45 [facility] [address] [place] [id number] 03/20/2024 Keyla Mcneil Mild persistent asthma, uncomplicated J45.30 ; Angioneurotic edema, subsequent encounter T78.3XXD ; Allergic rhinitis due to pollen J30.1 ; Allergic rhinitis due to animal (cat) (dog) hair and dander J30.81 ; Other allergic rhinitis J30.89 ; Other chronic allergic conjunctivitis H10.45 and Elevated blood-pressure reading, without diagnosis of hypertension R03.[address] [address] 03/22/2024 Lianet Victor Angioneurotic edema, subsequent encounter T78.3XXD ; Dermatitis, unspecified L30.9 ; Mild persistent asthma, uncomplicated J45.30 ; Allergic rhinitis due to pollen J30.1 ; Allergic rhinitis due to animal (cat) (dog) hair and dander J30.81 ; Other allergic rhinitis J30.89 ; Other chronic allergic conjunctivitis H10.45 and Elevated blood-pressure reading, without diagnosis of hypertension R03.[address] [address] 03/23/2024 Vickie Oh Mild persistent asthma, uncomplicated J45.30 ; Angioneurotic edema, subsequent encounter T78.3XXD ; Allergic rhinitis due to pollen J30.1 ; Allergic rhinitis due to animal (cat) (dog) hair and dander J30.81 ; Other allergic rhinitis J30.89 ; Other chronic allergic conjunctivitis H10.45 and Elevated blood-pressure reading, without diagnosis of hypertension R03.[address] [address] 03/27/2024 Mychal Marrero Mild persistent asthma, uncomplicated J45.30 ; Angioneurotic edema, subsequent encounter T78.3XXD ; Allergic rhinitis due to pollen J30.1 ; Allergic rhinitis due to animal (cat) (dog) hair and dander J30.81 ; Other allergic rhinitis J30.89 ; Other chronic allergic conjunctivitis H10.45 and Elevated blood-pressure reading, without diagnosis of hypertension R03.[address] [address] 02/15/2024 Lianet Victor [address] [address] 02/15/2024 Lianet Victor [address] [address] 02/16/2024 Lianet Victor [address] [address] 02/16/2024 Lianet Victor [address] [address] 02/16/2024 Lianet Victor Assessments Encounter Date Diagnosis (ICD Code) Assessment Notes Treatment Notes Treatment Clinical Notes Section Notes 02/15/2024 Angioneurotic edema, initial encounter (ICD-10 - T78.3XXA) Unclear cause for swelling. Considerations include dental work, autoimmune, viral, stress, or idiopathic. Request for labs sent to Dr. Stark's office before ordering further labs. We will also contact her lithographic press feeder for components of the root canal. Plan for patch testing. Start treatment with Zyrtec 10 mg BID, Famotidine 20 mg BID, and Singulair. Follow-up in 3 weeks. A copy of today's consult was sent to the requesting physician. 02/15/2024 Mild persistent asthma, uncomplicated (ICD-10 - J45.30) spirometry today is normal. Continue prn Symbicort 03/20/2024 Mild persistent asthma, uncomplicated (ICD-10 - J45.30) spirometry last visit was normal. Continue prn Symbicort 03/20/2024 Angioneurotic edema, subsequent encounter (ICD-10 - T78.3XXD) Unclear cause for swelling. Considerations include dental work, autoimmune, viral, stress, or idiopathic. Request for labs sent to Dr. Stark's office before ordering further labs. We will also contact her lithographic press feeder for components of the root canal. - Continue treatment with Zyrtec 10 mg BID, Famotidine 20 mg BID, and Singulair. - Patch testing was initiated today using [employer] AC-1000 test patch testing delivery system (most common topical allergens causing delayed-type hypersensitivity reactions). - Keep back dry and avoid topical and oral steroids. - Return in 2 days for patch removal and initial read. 03/22/2024 Dermatitis, unspecified (ICD-10 - L30.9) Unclear [...] tomorrow for read at 72 hours 03/22/2024 Angioneurotic edema, subsequent encounter (ICD-10 - T78.3XXD) 03/23/2024 Mild persistent asthma, uncomplicated (ICD-10 - J45.30) spirometry prior visit was normal. Continue prn Symbicort 03/23/2024 Angioneurotic edema, subsequent encounter (ICD-10 - T78.3XXD) Unclear cause for swelling. Considerations include dental work, autoimmune, viral, stress, or idiopathic. Request for labs sent to Dr. Stark's office before ordering further labs. We will also contact her lithographic press feeder for components of the root canal. - Continue treatment with Zyrtec 10 mg BID, Famotidine 20 mg BID, and Singulair. - Patch testing using [employer] AC-1000 test patch testing delivery system (most common topical allergens causing delayed-type hypersensitivity reactions) read today at 72 hours with several sensitivities present and listed below. - She was instructed to keep her back dry and avoid topical steroids until patch testing is complete. - Return in 4 days for final patch read at 168 hours 03/27/2024 Mild persistent asthma, uncomplicated (ICD-10 - J45.30) spirometry prior visit was normal. Continue prn Symbicort 03/27/2024 Angioneurotic edema, subsequent encounter (ICD-10 - T78.3XXD) Unclear cause for swelling. Considerations include dental work, autoimmune, viral, stress, or idiopathic. Request for labs sent to Dr. Stark's office before ordering further labs. We will also contact her lithographic press feeder for components of the root canal. - Continue treatment with Zyrtec 10 mg BID, Famotidine 20 mg BID, and Singulair. - Patch testing using [employer] AC-1000 test patch testing delivery system (most common topical allergens causing delayed-type hypersensitivity reactions) read today at 148 hours with results as below. Printed information on how to recognize and avoid these contact allergens was provided to the patient, and safe product lists from the [employer] will be e-mail to him separately - Return in 1 month for E&M 03/22/2024 Mild persistent asthma, uncomplicated (ICD-10 - J45.30) spirometry at her initial visit was normal. Continue prn Symbicort 03/27/2024 Allergic rhinitis due to pollen (ICD-10 - J30.1) Lina clearly suffers from atopic disease based upon our skin testing and clinical history. Accordingly, we have encouraged her medication regimen, discussed nasal washes and allergy-specific avoidance measures. We also discussed adjunctive therapies including subcutaneous, specific allergen immunotherapy as relates to the treatment and prevention of atopic disease. 03/23/2024 Allergic rhinitis due to pollen (ICD-10 - J30.1) Lina clearly suffers from atopic disease based upon our skin testing and clinical history. Accordingly, we have encouraged her medication regimen, discussed nasal washes and allergy-specific avoidance measures. We also discussed adjunctive therapies including subcutaneous, specific allergen immunotherapy as relates to the treatment and prevention of atopic disease. 03/20/2024 Allergic rhinitis due to pollen (ICD-10 - J30.1) Lina clearly suffers from atopic disease based upon our skin testing and clinical history. Accordingly, we have encouraged her medication regimen, discussed nasal washes and allergy-specific avoidance measures. We also discussed adjunctive therapies including subcutaneous, specific allergen immunotherapy as relates to the treatment and prevention of atopic disease. 02/15/2024 Allergic rhinitis due to pollen (ICD-10 - J30.1) Given the history and symptoms, skin testing was performed to common aeroallergens to determine atopic status. Lina clearly suffers from atopic disease based upon our skin testing and clinical history. Accordingly, we have introduced a new, aggressive medication regimen, discussed nasal washes and allergy-specific avoidance measures. We also discussed adjunctive therapies including subcutaneous, specific allergen immunotherapy as relates to the treatment and prevention of atopic disease. 02/15/2024 Allergic rhinitis due to animal (cat) (dog) hair and dander (ICD-10 - J30.81) 03/23/2024 Allergic rhinitis due to animal (cat) (dog) hair and dander (ICD-10 - J30.81) Follow allergen avoidance, meds and consider SCIT as an adjunctive treatment to current regimen 03/20/2024 Allergic rhinitis due to animal (cat) (dog) hair and dander (ICD-10 - J30.81) Follow allergen avoidance, meds and consider SCIT as an adjunctive treatment to current regimen 03/22/2024 Allergic rhinitis due to pollen (ICD-10 [...] an adjunctive treatment to current regimen 03/22/2024 Allergic rhinitis due to animal (cat) [...] as an adjunctive treatment to current regimen 03/20/2024 Other allergic rhinitis (ICD-10 - J30.89) Follow allergen avoidance, meds and consider SCIT as an adjunctive treatment to current regimen 02/15/2024 Other allergic rhinitis (ICD-10 - J30.89) 02/15/2024 Other chronic allergic conjunctivitis (ICD-10 - H10.45) Given ocular signs and symptoms I encouraged allergy avoidance measures and meds as above. If symptoms persist, consider adding additional medications including intraocular antihistamine/mast cell stabilizer, PRN 03/20/2024 Other chronic allergic conjunctivitis (ICD-10 - H10.45) Given ocular signs and symptoms I encouraged allergy avoidance measures and meds as above. If symptoms persist, consider adding additional medications including intraocular antihistamine/mast cell stabilizer, PRN 03/27/2024 Other chronic allergic conjunctivitis (ICD-10 - H10.45) Given ocular signs and symptoms I encouraged allergy avoidance measures and meds as above. If symptoms persist, consider adding additional medications including intraocular antihistamine/mast cell stabilizer, PRN 03/23/2024 Other chronic allergic conjunctivitis (ICD-10 - H10.45) Given ocular signs and symptoms I encouraged allergy avoidance measures and meds as above. If symptoms persist, consider adding additional medications including intraocular antihistamine/mast cell stabilizer, PRN 03/22/2024 Other allergic rhinitis (ICD-10 - J30.89) [...] Continue serial checks and follow-up with PCP 03/20/2024 Elevated blood-pressure reading, without diagnosis of hypertension (ICD-10 - R03.0) BP elevated today without symptoms of urgency or emergency. Continue serial checks and follow-up with PCP 03/27/2024 Elevated blood-pressure reading, without diagnosis of hypertension (ICD-10 - R03.0) BP elevated today without symptoms of urgency or emergency. Continue serial checks and follow-up with PCP 03/22/2024 Elevated blood-pressure reading, without diagnosis of hypertension (ICD-10 - R03.0) BP elevated today without symptoms of urgency or emergency. Continue serial checks and follow-up with PCP Plan Of Treatment No Information Insurance Providers Payer Name Payer Address Payer Phone Subscriber Number Group Number Insured Name Patient Relationship to Insured Coverage Start Date Coverage End Date [employer] [address] [place] [address] [id number] Lina Bailey Self - patient is the insured [facility] [address] [place] [address] [id number] Dajuan Bailey Spouse - patient is the spouse of the insured Medical (General) History Medical History History ICD Code Rheumatoid arthritis, unspecified M06.9 Surgical History Surgery Date(Month/Year) HYSTERECTOMY, complete 2009 HIP ARTHROSCOPY/SURGERY 2021 Cholecystectomy 2015 Left Hamstring Repair 2020 hip replacement 2021 Hospitalization History Reason Date(Month/Year) asthma exacerbation
--- OUTSIDE RECORDS SUMMARY | 2024-06-29 15:56 | XMS_ITS | Data Portability ---
Author Organization [place] [facility] [employer], Main Office Address [address] [place] [address] Care Team Providers Care Office Equipment Mechanic Name Role Phone CHADWICK DUNLAP Primary Care Provider CHADWICK DUNLAP Referring Provider Assessment Encounter Date Assessment Date Assessment LastModified by Organization Details LastModified Time 10/22/2022 10/22/2022 Will obtain additional blood work and echo magnesium T3-T4 TSH 3 week Holter follow-up after Lipase was elevated at the emergency room will recheck [email or web address] Not available 10/25/2022 21:44:39 01/11/2023 01/11/2023 She is not takin g the methotrexate the ultrasound was reviewed with her we will get the MRI with without contrast as recommended by Radiology and I will see her there after consider GI referral consider cholestyramine for her diarrhea and IBS symptoms [id number] Not available 01/11/2023 13:44:19 Plan of Treatment Reminders Order Date Submit Date Provider Last Modified By Organization Details Last Modified Time Details Appointments None recorded. Lab TSH, serum or plasma [address] [facility] (Lab), [address] [place], [address], 3 18:01:57 T4, free, serum [address] [facility] (Lab), [address] [place], [address], 3 18:01:46 T3, free, serum or plasma [address] [facility] (Lab), [address] [place], [address], 3 18:01:48 magnesium, serum or plasma [address] [facility] (Lab), [address] [place], [address], 3 17:23:03 lipase, serum or plasma [address] [facility] (Lab), [address] [place], [address], 3 17:23:08 Referral None recorded. Procedures None recorded. Surgeries None recorded. Imaging MRI, abdomen, w/wo contrast - primary approved [id number] 01/11/23- sec approved [id number] 01/11/2023 - 03/11/20232022 023 [facility] [[email or web address] ([facility]), [address] [place], [address], 3 13:08:19 US, echocardiog buddy - no auth required 2022 023 [facility] [[email or web address] ([facility] Sched[facility]), [address] [place], [address], 3 14:33:01 holter monitor - 3wk holter 2022 023 [facility], [address] [facility], [address], [place], [address], 3 10:43:25 Medication Orders None recorded. Patient TargetsNo targets recorded. Patient InstructionsNo instructions recorded. Reason for Referral None Reported. Results Created Date Observation Date Name Description Value Unit Range Abnormal Flag Note LastModifiedBy Organization Detail LastModifiedTime 09/05/19 21 09/08/2020 DAINA/A NTINU CLEAR ANTIB ODIES ,IFA antinuclear antibodies, ifa positi ve abnormal Negat meño <1:80 Borde rline 1:80 Posit meño >1:80 Perfo rmed at: [facility] n [address] [facility], [place] [id number] [facility] Lab Direc tor: Fer man PhD, Phone : [phone] Not Available [facility] (Lab) [address] [place], [address], 09/08/2020 12:10:54 09/05/19 21 09/08/2020 DAINA/A NTINU CLEAR ANTIB ODIES ,IFA speckled pattern 1:320 high Dense Fine Speck led elana buitrago is noted . This elana buitrago sugge sts the prese nce of DFS70 antib petra which has a low preva lence in syste geovanny autoi mmune rheum atic disea ses. Not Available [facility] (Lab) [address] [place], [address], 09/08/2020 12:10:54 09/05/19 21 09/08/2020 DAINA/A NTINU CLEAR ANTIB ODIES ,IFA note: commen t . A posit meño DAINA resul t may occur in healt hy indiv idual s (low titer ) or be assoc iated with a varie ty of disea ses. See inter preta tion chart which is not all inclu sive: . Elana buitrago Antig en Detec carol Jana sted Disea se Assoc iatio n ----- ----- - ----- ----- ----- - ----- ----- ----- ----- ----- ---- Homog eneou s DNA(d s,ss) , SLE - High titer s Nucle osome s, Histo sean Drug- induc ed SLE ----- ----- - ----- ----- ----- - ----- ----- ----- ----- ----- ---- Speck led Sm, FUEL PILOT ENGINEER, SCL-7 0, SLE,M CTD,P SS (diff use form) , SS-A/ SS-B Sjogr ens ----- ----- - ----- ----- ----- - ----- ----- ----- ----- ----- ---- Nucle olar SCL-7 0, PM-1/ SCL High titer s Scler oderm a, PM/DM ----- ----- - ----- ----- ----- - ----- ----- ----- ----- ----- ---- Centr omere Centr omere PSS (limi carol form) w/Cre st syndr ome varia ble ----- ----- - ----- ----- ----- - ----- ----- ----- ----- ----- ---- Nucle ar Dot Sp100 ,p80- coili n Prima ry Bilia ry Cirrh osis ----- ----- - ----- ----- ----- - ----- ----- ----- ----- ----- ---- Nucle ar GP210 , Prima ry Bilia ry Cirrh osis Membr ane james A,B,C ----- ----- - ----- ----- ----- - ----- ----- ----- ----- ----- ---- Perfo rmed at: [facility] n [address] [facility], [place] [address] Lab Direc tor: Fer man PhD, Phone : [phone] Not Available [facility] (Lab) [address] [place], [address], 09/08/2020 12:10:54 09/05/19 21 09/04/2020 C REACT MEÑO PROTE IN,UL TRA SENS C-reactive protein 0.56 mg/dL 0.0-0. 5 high Not Available [facility] (Lab) [address] [place], [address], 09/04/2020 19:38:13 09/05/19 21 09/04/2020 RHEUM ATOID FACTO R rf <8.6 IU/mL 0.0-11 .9 Not Available [facility] (Lab) [address] [place], [address], 09/04/2020 19:38:08 09/05/19 21 09/04/2020 SEDIM ENTAT ION RATE erythrocyte sedimentatio n rate 14 mm/HR 0-20 Not Available [facility] (Lab) [address] [place], [address], 09/04/2020 14:59:29 09/05/19 21 09/04/2020 COMPR EHENS MEÑO METAB OLIC PANEL agap 13.1 mmol/ L 14-22 low Not Available [facility] (Lab) [address] [place], [address], 09/04/2020 20:27:12 09/05/19 21 09/04/2020 COMPR EHENS MEÑO METAB OLIC PANEL sodium 136 mmol/ L 137-14 5 low Not Available [facility] (Lab) [address] [place], [address], 09/04/2020 20:27:12 09/05/19 21 09/04/2020 COMPR EHENS MEÑO METAB OLIC PANEL potassium 4.1 mmol/ L 3.5-5. 1 Not Available [facility] (Lab) [address] [place], [address], 09/04/2020 20:27:12 09/05/19 21 09/04/2020 COMPR EHENS MEÑO METAB OLIC PANEL chloride 103 mmol/ L 98-107 Not Available [facility] (Lab) [address] [place], [address], 09/04/2020 20:27:12 09/05/19 21 09/04/2020 COMPR EHENS MEÑO METAB OLIC PANEL carbon dioxide 24 mmol/ L 22-30 Not Available [facility] (Lab) [address] [place], [address], 09/04/2020 20:27:12 09/05/19 21 09/04/2020 COMPR EHENS MEÑO METAB OLIC PANEL glucose 104 mg/dL 70-99 high Not Available [facility] (Lab) [address] [place], [address], 09/04/2020 20:27:12 09/05/19 21 09/04/2020 COMPR EHENS MEÑO METAB OLIC PANEL BUN 15 mg/dL 8-19 Not Available [facility] (Lab) [address] [place], [address], 09/04/2020 20:27:12 09/05/19 21 09/04/2020 COMPR EHENS MEÑO METAB OLIC PANEL creatinine 0.83 mg/dL 0.66-1 .25 Not Available [facility] (Lab) [address] [place], [address], 09/04/2020 20:27:12 09/05/19 21 09/04/2020 COMPR EHENS MEÑO METAB OLIC PANEL GFR >60 Refer ence Range : [place] ge GFR Healt hy Adult : >60 mL/mi n/1.7 3 m2 Chron ic Kidne y Disea se: 15-60 mL/mi n/1.7 3 m2 Kidne y Failu re: <15/m L/min /1.73 m2 www.n iddk. nih.g ov MDRD study equat ion hasn' t been valid ated in child krystle <18 yrs of age, pregn ant women , the elder ly >85 yrs of age, or in some racia l or ethni c subgr oups, suc as Hispa nics. Outsi de the valid ated yvonne eters , estim ated GFR is less accur ate requi ring clini celena judgm ent on a case by case basis . Clini celena inter preta tion for other races and ages must be made by the clini cosmo . Futhe rmore , any of th e limit ation s with the use of serum creat inine relat ed to nutri pierre l statu s o r medic ation usage hasn' t accou nted for the MDRD Study equat ion. For perso ns < 18 yrs of age, a pedia tric GFR calcu lator can be locat ed on the [facility] websi te: https ://olga zamorano.kerline moon.o rg/pr ofess ional s/kdo qi/gf r_cal culat or Not Available [facility] (Lab) [address] [place], [address], 09/04/2020 20:27:12 09/05/19 21 09/04/2020 COMPR EHENS MEÑO METAB OLIC PANEL alkaline phosphatase 60 U/L 38-126 Not Available [facility] (Lab) [address] [place], [address], 09/04/2020 20:27:12 09/05/19 21 09/04/2020 COMPR EHENS MEÑO METAB OLIC PANEL alanine aminotransfe rase 28 U/L 0-35 Not Available [facility] (Lab) [address] [place], [address], 09/04/2020 20:27:12 09/05/19 21 09/04/2020 COMPR EHENS MEÑO METAB OLIC PANEL aspartate aminotransfe rase 30 U/L 15-37 Not Available [facility] (Lab) [address] [place], [address], 09/04/2020 20:27:12 09/05/19 21 09/04/2020 COMPR EHENS MEÑO METAB OLIC PANEL bilirubin, total 0.70 mg/dL 0.20-1 .30 Not Available [facility] (Lab) [address] [place], [address], 09/04/2020 20:27:12 09/05/19 21 09/04/2020 COMPR EHENS MEÑO METAB OLIC PANEL calcium 9.5 mg/dL 8.4-10 .2 Not Available [facility] (Lab) [address] [place], [address], 09/04/2020 20:27:12 09/05/19 21 09/04/2020 COMPR EHENS MEÑO METAB OLIC PANEL total protein 7.0 g/dL 6.3-8. 2 Not Available [facility] (Lab) [address] [place], [address], 09/04/2020 20:27:12 09/05/19 21 09/04/2020 COMPR EHENS MEÑO METAB OLIC PANEL albumin 4.4 g/dL 3.4-5. 0 Not Available [facility] (Lab) [address] [place], [address], 09/04/2020 20:27:12 09/05/19 21 09/04/2020 COMPR EHENS MEÑO METAB OLIC PANEL globulin 2.6 g/dL 2.6-4. 2 Not Available [facility] (Lab) [address] [facility] [place], [address], 09/04/2020 20:27:12 09/05/19 21 09/04/2020 COMPR EHENS MEÑO METAB OLIC PANEL A/G ratio 1.7 ratio 1.0-2. 0 Not Available [facility] (Lab) [address] [place], [address], 09/04/2020 20:27:12 09/05/19 21 09/04/2020 LIPID PANEL cholesterol 194 mg/dL 140-19 9 [facility] NSUS RECOM MENDA TION FOR COLLIN STERO L: ADULT CHILD LOW RISK: <200 <170 BORDE RLINE : <200- 239 ----- HIGH RISK: >240 >200 Not Available [facility] (Lab) [address] [place], [address], 09/04/2020 20:27:03 09/05/19 21 09/04/2020 LIPID PANEL triglyceride s 264 mg/dL 0-150 high [facility] NSUS REPOR T RECOM MENDA TION FOR TRIGL YCERI MARJAN: ADULT CHILD LOW RISK: <150 ----- BODER LINE: 150-1 99 ----- HIGH RISK: >200 ----- Not Available [facility] (Lab) [address] [place], [address], 09/04/2020 20:27:03 09/05/19 21 09/04/2020 LIPID PANEL HDL cholesterol 45 mg/dL 40- Not Available [facility] (Lab) [address] [place], [address], 09/04/2020 20:27:03 09/05/19 21 09/04/2020 LIPID PANEL LDL cholesterol, calculated 96 mg/dL 0-130 [facility] NSUS REPOR T RECOM MENDA TIONS FOR LDL: ADULT CHILD LOW RISK <130 <110 (OPTI MAL LDL) <100 ----- BORDE RLINE : 130-1 59 ----- HIGH RISK: >160 >130 A TRIGL YCERI DE RESUL T >400 INVAL IDATE S THE CALCU LATIO N FOR LDL FRACT IONAT ION - THE LDL RESUL T WILL NOT BE REPOR CAROL. Not Available [facility] (Lab) [address] [place], [address], 09/04/2020 20:27:03 09/05/19 21 09/04/2020 T3 FREE free T3 3.3 pg/mL 2.77-5 .27 Not Available [facility] (Lab) [address] [place], [address], 09/04/2020 19:52:45 09/05/19 21 09/04/2020 TSH thyroid-stim ulating hormone 4.840 uIU/m L 0.465- 4.680 high Not Available [facility] (Lab) [address] [place], [address], 09/04/2020 19:44:11 09/05/19 21 09/04/2020 T4 FREE free T4 0.81 NG/dL 0.78-2 .19 Not Available [facility] (Lab) [address] [place], [address], 09/04/2020 19:42:02 09/05/19 21 09/04/2020 CBC/C OMPLE TE BLD COUNT W/DIF F hemoglobin 14.2 g/dL 12.0-1 5.6 Not Available [facility] (Lab) [address] [place], [address], 09/04/2020 15:35:24 09/05/19 21 09/04/2020 CBC/C OMPLE TE BLD COUNT W/DIF F hematocrit 41.2 % 35.7-4 5.7 Not Available [facility] (Lab) [address] [place], [address], 09/04/2020 15:35:24 09/05/19 21 09/04/2020 CBC/C OMPLE TE BLD COUNT W/DIF F mean red cell volume 92.2 fL 82.0-9 9.0 Not Available [facility] (Lab) [address] [place], [address], 09/04/2020 15:35:24 09/05/19 21 09/04/2020 CBC/C OMPLE TE BLD COUNT W/DIF F mean red cell hemoglobin 31.8 pg 27.0-3 3.0 Not Available [facility] (Lab) [address] [place], [address], 09/04/2020 15:35:24 09/05/19 21 09/04/2020 CBC/C OMPLE TE BLD COUNT W/DIF F mean RBC HGB concentratio n 34.5 g/dL 31.0-3 6.0 Not Available [facility] (Lab) [address] [place], [address], 09/04/2020 15:35:24 09/05/19 21 09/04/2020 CBC/C OMPLE TE BLD COUNT W/DIF F red cell distribution width 12.6 % 11.8-1 5.5 Not Available [facility] (Lab) [address] [place], [address], 09/04/2020 15:35:24 09/05/19 21 09/04/2020 CBC/C OMPLE TE BLD COUNT W/DIF F platelets 186 x10'3 /uL 150-40 0 Not Available [facility] (Lab) [address] [place], [address], 09/04/2020 15:35:24 09/05/19 21 09/04/2020 CBC/C OMPLE TE BLD COUNT W/DIF F mean platelet volume 12.0 fL 9.0-12 .4 Not Available [facility] (Lab) [address] [place], [address], 09/04/2020 15:35:24 09/05/19 21 09/04/2020 CBC/C OMPLE TE BLD COUNT W/DIF F neutrophils 60.5 % 39.0-7 2.0 Not Available [facility] (Lab) [address] [place], [address], 09/04/2020 15:35:24 09/05/19 21 09/04/2020 CBC/C OMPLE TE BLD COUNT W/DIF F lymphocytes 31.6 % 16.0-4 7.0 Not Available [facility] (Lab) [address] [place], [address], 09/04/2020 15:35:24 07/0709/04/2020 CBC/C OMPLE TE BLD COUNT W/DIF F monocytes 6.4 % 5.0-12 .0 Not Available [facility] (Lab) [address] [place], [address], 09/04/2020 15:35:24 09/05/19 21 09/04/2020 CBC/C OMPLE TE BLD COUNT W/DIF F eosinophils 1.1 % 1.0-7. 0 Not Available [facility] (Lab) [address] [place], [address], 09/04/2020 15:35:24 09/05/19 21 09/04/2020 CBC/C OMPLE TE BLD COUNT W/DIF F basophils 0.1 % 0.0-2. 0 Not Available [facility] (Lab) [address] [place], [address], 09/04/2020 15:35:24 09/05/19 21 09/04/2020 CBC/C OMPLE TE BLD COUNT W/DIF F immature granulocytes 0.3 % 0.00-0 .50 Not Available [facility] (Lab) [address] [place], [address], 09/04/2020 15:35:24 09/05/19 21 09/04/2020 CBC/C OMPLE TE BLD COUNT W/DIF F neutrophils, absolute count 4.47 x10'3 /uL 1.5-8. 0 Not Available [facility] (Lab) [address] [place], [address], 09/04/2020 15:35:24 09/05/19 21 09/04/2020 CBC/C OMPLE TE BLD COUNT W/DIF F lymphocytes, absolute count 2.33 x10'3 /uL 1.07-3 .43 Not Available [facility] (Lab) [address] [place], [address], 09/04/2020 15:35:24 09/05/19 21 09/04/2020 CBC/C OMPLE TE BLD COUNT W/DIF F monocytes, absolute count 0.47 x10'3 /uL 0.29-0 .99 Not Available [facility] (Lab) [address] [place], [address], 09/04/2020 15:35:24 09/05/19 21 09/04/2020 CBC/C OMPLE TE BLD COUNT W/DIF F eosinophils, absolute count 0.08 x10'3 /uL 0.02-0 .53 Not Available [facility] (Lab) [address] [place], [address], 09/04/2020 15:35:24 09/05/19 21 09/04/2020 CBC/C OMPLE TE BLD COUNT W/DIF F basophils, absolute count 0.01 x10'3 /uL 0.01-0 .08 Not Available [facility] (Lab) [address] [place], [address], 09/04/2020 15:35:24 09/05/19 21 09/04/2020 CBC/C OMPLE TE BLD COUNT W/DIF F immature granulocytes ,absolute 0.02 x10'3 /uL 0.00-0 .05 Not Available [facility] (Lab) [address] [place], [address], 09/04/2020 15:35:24 09/05/19 21 09/04/2020 CBC/C OMPLE TE BLD COUNT W/DIF F nucleated red blood cells 0.0 % -0 Not Available [facility] (Lab) [address] [place], [address], 09/04/2020 15:35:24 09/05/19 21 09/04/2020 CBC/C OMPLE TE BLD COUNT W/DIF F NRBC# 0.00 x10'3 /uL Not Available [facility] (Lab) [address] [place], [address], 09/04/2020 15:35:24 09/05/19 21 09/04/2020 CBC/C OMPLE TE BLD COUNT W/DIF F white blood cells 7.4 x10'3 /uL 4.2-10 .8 Not Available [facility] (Lab) [address] [place], [address], 09/04/2020 15:35:24 09/05/19 21 09/04/2020 CBC/C OMPLE TE BLD COUNT W/DIF F red blood cells 4.47 x10'6 /uL 3.80-5 .20 Not Available [facility] (Lab) [address] [place], [address], 09/04/2020 15:35:24 12/11/19 21 12/10/2020 COMPR EHENS MEÑO METAB OLIC PANEL carbon dioxide 25 mmol/ L 22-30 Not Available [facility] (Lab) [address] [place], [address], 12/10/2020 20:06:34 12/11/19 21 12/10/2020 COMPR EHENS MEÑO METAB OLIC PANEL sodium 137 mmol/ L 137-14 5 Not Available [facility] (Lab) [address] [place], [address], 12/10/2020 20:06:34 12/11/19 21 12/10/2020 COMPR EHENS MEÑO METAB OLIC PANEL potassium 4.4 mmol/ L 3.5-5. 1 Not Available [facility] (Lab) [address] [place], [address], 12/10/2020 20:06:34 12/11/19 21 12/10/2020 COMPR EHENS MEÑO METAB OLIC PANEL chloride 104 mmol/ L 98-107 Not Available [facility] (Lab) [address] [place], [address], 12/10/2020 20:06:34 12/11/19 21 12/10/2020 COMPR EHENS MEÑO METAB OLIC PANEL agap 12.4 mmol/ L 14-22 low Not Available [facility] (Lab) [address] [place], [address], 12/10/2020 20:06:34 12/11/19 21 12/10/2020 COMPR EHENS MEÑO METAB OLIC PANEL glucose 83 mg/dL 70-99 Not Available [facility] (Lab) [address] [place], [address], 12/10/2020 20:06:34 12/11/19 21 12/10/2020 COMPR EHENS MEÑO METAB OLIC PANEL BUN 12 mg/dL 8-19 Not Available [facility] (Lab) [address] [place], [address], 12/10/2020 20:06:34 12/11/19 21 12/10/2020 COMPR EHENS MEÑO METAB OLIC PANEL creatinine 0.85 mg/dL 0.66-1 .25 Not Available [facility] (Lab) [address] [place], [address], 12/10/2020 20:06:34 12/11/19 21 12/10/2020 COMPR EHENS MEÑO METAB OLIC PANEL GFR >60 Refer ence Range : [place] GFR Healt hy Adult : >60 mL/mi n/1.7 3 m2 Chron ic Kidne y Disea se: 15-60 mL/mi n/1.7 3 m2 Kidne y Failu re: <15/m L/min /1.73 m2 www.n iddk. nih.g ov MDRD study equat ion hasn' t been valid ated in child krystle <18 yrs of age, pregn ant women , the elder ly >85 yrs of age, or in some racia l or ethni c subgr oups, suc as Hispa nics. Outsi de the valid ated yvonne eters , estim ated GFR is less accur ate requi ring clini celena judgm ent on a case by case basis . Clini celena inter preta tion for other races and ages must be made by the clini cosmo . Futhe rmore , any of th e limit ation s with the use of serum creat inine relat ed to nutri pierre l statu s o r medic ation usage hasn' t accou nted for the MDRD Study equat ion. For perso ns < 18 yrs of age, a pedia tric GFR calcu lator can be locat ed on the [facility] websi te: https ://ww w.kid sarai.o rg/pr ofess ional s/kdo qi/gf r_cal culat or Not Available [facility] (Lab) [address] [place], [address], 12/10/2020 20:06:34 12/11/19 21 12/10/2020 COMPR EHENS MEÑO METAB OLIC PANEL alkaline phosphatase 60 U/L 38-126 Not Available [facility] (Lab) [address] [place], [address], 12/10/2020 20:06:34 12/11/19 21 12/10/2020 COMPR EHENS MEÑO METAB OLIC PANEL alanine aminotransfe rase 33 U/L 0-35 Not Available [facility] (Lab) [address] [place], [address], 12/10/2020 20:06:34 12/11/19 21 12/10/2020 COMPR EHENS MEÑO METAB OLIC PANEL aspartate aminotransfe rase 32 U/L 15-37 Not Available [facility] (Lab) [address] [place], [address], 12/10/2020 20:06:34 12/11/19 21 12/10/2020 COMPR EHENS MEÑO METAB OLIC PANEL bilirubin, total 0.80 mg/dL 0.20-1 .30 Not Available [facility] (Lab) [address] [place], [address], 12/10/2020 20:06:34 12/11/19 21 12/10/2020 COMPR EHENS MEÑO METAB OLIC PANEL calcium 9.5 mg/dL 8.4-10 .2 Not Available [facility] (Lab) [address] [place], [address], 12/10/2020 20:06:34 12/11/19 21 12/10/2020 COMPR EHENS MEÑO METAB OLIC PANEL total protein 6.4 g/dL 6.3-8. 2 Not Available [facility] (Lab) [address] [place], [address], 12/10/2020 20:06:34 12/11/19 21 12/10/2020 COMPR EHENS MEÑO METAB OLIC PANEL albumin 3.9 g/dL 3.4-5. 0 Not Available [facility] (Lab) [address] [place], [address], 12/10/2020 20:06:34 12/11/19 21 12/10/2020 COMPR EHENS MEÑO METAB OLIC PANEL globulin 2.5 g/dL 2.6-4. 2 low Not Available [facility] (Lab) [address] [place], [address], 12/10/2020 20:06:34 12/11/19 21 12/10/2020 COMPR EHENS MEÑO METAB OLIC PANEL A/G ratio 1.6 ratio 1.0-2. 0 Not Available [facility] (Lab) [address] [place], [address], 12/10/2020 20:06:34 12/11/19 21 12/10/2020 CBC/C OMPLE TE BLD COUNT W/DIF F white blood cells 6.6 x10'3 /uL 4.2-10 .8 Not Available [facility] (Lab) [address] [place], [address], 12/10/2020 13:44:36 12/11/19 21 12/10/2020 CBC/C OMPLE TE BLD COUNT W/DIF F red blood cells 4.05 x10'6 /uL 3.80-5 .20 Not Available [facility] (Lab) [address] [place], [address], 12/10/2020 13:44:36 12/11/19 21 12/10/2020 CBC/C OMPLE TE BLD COUNT W/DIF F hemoglobin 13.7 g/dL 12.0-1 5.6 Not Available [facility] (Lab) [address] [place], [address], 12/10/2020 13:44:36 12/11/1912/10/2020 CBC/C OMPLE TE BLD COUNT W/DIF F hematocrit 38.3 % 35.7-4 5.7 Not Available [facility] (Lab) [address] [place], [address], 12/10/2020 13:44:36 12/11/19 21 12/10/2020 CBC/C OMPLE TE BLD COUNT W/DIF F mean red cell volume 94.6 fL 82.0-9 9.0 Not Available [facility] (Lab) [address] [place], [address], 12/10/2020 13:44:36 12/11/1912/10/2020 CBC/C OMPLE TE BLD COUNT W/DIF F mean red cell hemoglobin 33.8 pg 27.0-3 3.0 high Not Available [facility] (Lab) [address] [place], [address], 12/10/2020 13:44:36 12/11/1912/10/2020 CBC/C OMPLE TE BLD COUNT W/DIF F mean RBC HGB concentratio n 35.8 g/dL 31.0-3 6.0 Not Available [facility] (Lab) [address] [place], [address], 12/10/2020 13:44:36 12/11/1912/10/2020 CBC/C OMPLE TE BLD COUNT W/DIF F red cell distribution width 13.0 % 11.8-1 5.5 Not Available [facility] (Lab) [address] [place], [address], 12/10/2020 13:44:36 12/11/1912/10/2020 CBC/C OMPLE TE BLD COUNT W/DIF F platelets 184 x10'3 /uL 150-40 0 Not Available [facility] (Lab) [address] [place], [address], 12/10/2020 13:44:36 12/11/1912/10/2020 CBC/C OMPLE TE BLD COUNT W/DIF F mean platelet volume 11.7 fL 9.0-12 .4 Not Available [facility] (Lab) [address] [place], [address], 12/10/2020 13:44:36 12/11/1912/10/2020 CBC/C OMPLE TE BLD COUNT W/DIF F neutrophils 61.1 % 39.0-7 2.0 Not Available [facility] (Lab) [address] [place], [address], 12/10/2020 13:44:36 12/11/1912/10/2020 CBC/C OMPLE TE BLD COUNT W/DIF F lymphocytes 32.1 % 16.0-4 7.0 Not Available [facility] (Lab) [address] [place], [address], 12/10/2020 13:44:36 12/11/1912/10/2020 CBC/C OMPLE TE BLD COUNT W/DIF F monocytes 5.2 % 5.0-12 .0 Not Available [facility] (Lab) [address] [place], [address], 12/10/2020 13:44:36 12/11/1912/10/2020 CBC/C OMPLE TE BLD COUNT W/DIF F eosinophils 1.1 % 1.0-7. 0 Not Available [facility] (Lab) [address] [place], [address], 12/10/2020 13:44:36 12/11/1912/10/2020 CBC/C OMPLE TE BLD COUNT W/DIF F basophils 0.3 % 0.0-2. 0 Not Available [facility] (Lab) [address] [place], [address], 12/10/2020 13:44:36 12/11/1912/10/2020 CBC/C OMPLE TE BLD COUNT W/DIF F immature granulocytes 0.2 % 0.00-0 .50 Not Available [facility] (Lab) [address] [place], [address], 12/10/2020 13:44:36 12/11/1912/10/2020 CBC/C OMPLE TE BLD COUNT W/DIF F neutrophils, absolute count 4.04 x10'3 /uL 1.5-8. 0 Not Available [facility] (Lab) [address] [place], [address], 12/10/2020 13:44:36 12/11/19 21 12/10/2020 CBC/C OMPLE TE BLD COUNT W/DIF F lymphocytes, absolute count 2.12 x10'3 /uL 1.07-3 .43 Not Available [place] [facility] (Lab) [address] [place], [address], 12/10/2020 13:44:36 12/11/19 21 12/10/2020 CBC/C OMPLE TE BLD COUNT W/DIF F monocytes, absolute count 0.34 x10'3 /uL 0.29-0 .99 Not Available [facility] (Lab) [address] [place], [address], 12/10/2020 13:44:36 12/11/1912/10/2020 CBC/C OMPLE TE BLD COUNT W/DIF F eosinophils, absolute count 0.07 x10'3 /uL 0.02-0 .53 Not Available [facility] (Lab) [address] [place], [address], 12/10/2020 13:44:36 12/11/19 21 12/10/2020 CBC/C OMPLE TE BLD COUNT W/DIF F basophils, absolute count 0.02 x10'3 /uL 0.01-0 .08 Not Available [facility] (Lab) [address] [place], [address], 12/10/2020 13:44:36 12/11/1912/10/2020 CBC/C OMPLE TE BLD COUNT W/DIF F immature granulocytes ,absolute 0.01 x10'3 /uL 0.00-0 .05 Not Available [facility] (Lab) [address] [place], [address], 12/10/2020 13:44:36 12/11/19 21 12/10/2020 CBC/C OMPLE TE BLD COUNT W/DIF F nucleated red blood cells 0.0 % -0 Not Available [facility] (Lab) [address] [place], [address], 12/10/2020 13:44:36 12/11/19 21 12/10/2020 CBC/C OMPLE TE BLD COUNT W/DIF F NRBC# 0.00 x10'3 /uL Not Available [facility] (Lab) [address] [place], [address], 12/10/2020 13:44:36 02/27/20 22 02/26/2022 INFLU CHERISE A/B ANTIG EN RAPID flu A negati ve negati ve Not Available [facility] (Lab) [address] [place], [address], 02/26/2022 17:35:20 02/27/20 22 02/26/2022 INFLU CHERISE A/B ANTIG EN RAPID flu B negati ve negati ve THIS TEST CAN NOT DISTI NGUIS H INFLU CHERISE A VIRUS SUBTY PES. ALSO, PLEAS E NOTE THAT A NEGAT MEÑO RESUL T DOES NOT EXCLU DE INFLU CHERISE VIRUS INFEC TION. IF MORE CONCL USIVE TESTI NG IS LIANNE ED, FOLLO W-UP CONFI RMATO RY TESTI NG WITH RT-PC R IS JANA PETTYD. 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 Negat meño resul ts do not precl ude SARS- CoV-2 and shoul d not be used as the sole basis for treat ment or other patie nt manag ement decis ions. Test resul ts shoul d be corre lated with the clini celena histo ry, epide miolo gical data, and other data avail able to the clini cosmo evalu ating the patie nt. Kisha yousif w the Fact Sheet s for healt h care provi ders and patie nts at the [facility] parveen: https ://[employer] .gov/ media /1363 12/do wnloa d https ://[employer] .gov/ media /1363 13/do wnloa d https ://[employer] .gov/ media /1421 92/do wnloa d https ://[employer] .gov/ media /1421 91/do wnloa d Kenneth márquez y: Real- Time RT-PC R Not Available [facility] (Lab) [address] [place], [address], 02/26/2022 17:32:58 02/27/20 22 02/26/2022 RAPID STREP A DNA strep A antigen positi ve negati ve abnormal Not Available [facility] (Lab) [address] [place], [address], 02/26/2022 17:19:20 03/16/19 23 03/16/2022 LIPID PANEL cholesterol 199 mg/dL 140-19 9 [facility] NSUS RECOM MENDA TION FOR COLLIN STERO L: ADULT CHILD LOW RISK: <200 <170 BORDE RLINE : <200- 239 ----- HIGH RISK: >240 >200 Not Available [facility] (Lab) [address] [place], [address], 03/16/2022 15:02:56 03/16/19 23 03/16/2022 LIPID PANEL triglyceride s 154 mg/dL 0-150 high [facility] NSUS REPOR T RECOM MENDA TION FOR TRIGL YCERI MARJAN: ADULT CHILD LOW RISK: <150 ----- BODER LINE: 150-1 99 ----- HIGH RISK: >200 ----- Not Available [facility] (Lab) [address] [place], [address], 03/16/2022 15:02:56 03/16/19 23 03/16/2022 LIPID PANEL HDL cholesterol 48 mg/dL 40- Not Available [facility] (Lab) [address] [place], [address], 03/16/2022 15:02:56 03/16/19 23 03/16/2022 LIPID PANEL LDL cholesterol, calculated 120 mg/dL 0-130 [facility] NSUS REPOR T RECOM MENDA TIONS FOR LDL: ADULT CHILD LOW RISK <130 <110 (OPTI MAL LDL) <100 ----- BORDE RLINE : 130-1 59 ----- HIGH RISK: >160 >130 A TRIGL YCERI DE RESUL T >400 INVAL IDATE S THE CALCU LATIO N FOR LDL FRACT IONAT ION - THE LDL RESUL T WILL NOT BE REPOR CAROL. Not Available [facility] (Lab) [address] [place], [address], 03/16/2022 15:02:56 03/16/19 23 03/16/2022 CBC/C OMPLE TE BLD COUNT W/DIF F hematocrit 41.2 % 35.7-4 5.7 Not Available [facility] (Lab) [address] [place], [address], 03/16/2022 15:19:38 03/16/19 23 03/16/2022 CBC/C OMPLE TE BLD COUNT W/DIF F white blood cells 5.7 x10'3 /uL 4.2-10 .8 Not Available [facility] (Lab) [address] [place], [address], 03/16/2022 15:19:38 03/16/19 23 03/16/2022 CBC/C OMPLE TE BLD COUNT W/DIF F red blood cells 4.30 x10'6 /uL 3.80-5 .20 Not Available [facility] (Lab) [address] [place], [address], 03/16/2022 15:19:38 03/16/19 23 03/16/2022 CBC/C OMPLE TE BLD COUNT W/DIF F hemoglobin 13.9 g/dL 12.0-1 5.6 Not Available [facility] (Lab) [address] [facility] [place], [address], 03/16/2022 15:19:38 03/16/19 23 03/16/2022 CBC/C OMPLE TE BLD COUNT W/DIF F mean red cell volume 95.8 fL 82.0-9 9.0 Not Available [facility] (Lab) [address] [place], [address], 03/16/2022 15:19:38 03/16/19 23 03/16/2022 CBC/C OMPLE TE BLD COUNT W/DIF F mean red cell hemoglobin 32.3 pg 27.0-3 3.0 Not Available [facility] (Lab) [address] [place], [address], 03/16/2022 15:19:38 03/16/19 23 03/16/2022 CBC/C OMPLE TE BLD COUNT W/DIF F mean RBC HGB concentratio n 33.7 g/dL 31.0-3 6.0 Not Available [facility] (Lab) [address] [place], [address], 03/16/2022 15:19:38 03/16/19 23 03/16/2022 CBC/C OMPLE TE BLD COUNT W/DIF F red cell distribution width 12.9 % 11.8-1 5.5 Not Available [facility] (Lab) [address] [place], [address], 03/16/2022 15:19:38 03/16/19 23 03/16/2022 CBC/C OMPLE TE BLD COUNT W/DIF F platelets 191 x10'3 /uL 150-40 0 Not Available [facility] (Lab) [address] [place], [address], 03/16/2022 15:19:38 03/16/19 23 03/16/2022 CBC/C OMPLE TE BLD COUNT W/DIF F mean platelet volume 12.4 fL 9.0-12 .4 Not Available [facility] (Lab) [address] [place], [address], 03/16/2022 15:19:38 03/16/19 23 03/16/2022 CBC/C OMPLE TE BLD COUNT W/DIF F neutrophils 61.3 % 39.0-7 2.0 Not Available [facility] (Lab) [address] [place], [address], 03/16/2022 15:19:38 03/16/19 23 03/16/2022 CBC/C OMPLE TE BLD COUNT W/DIF F lymphocytes 31.6 % 16.0-4 7.0 Not Available [facility] (Lab) [address] [place], [address], 03/16/2022 15:19:38 03/16/19 23 03/16/2022 CBC/C OMPLE TE BLD COUNT W/DIF F monocytes 5.8 % 5.0-12 .0 Not Available [facility] (Lab) [address] [place], [address], 03/16/2022 15:19:38 03/16/19 23 03/16/2022 CBC/C OMPLE TE BLD COUNT W/DIF F eosinophils 0.5 % 1.0-7. 0 low Not Available [facility] (Lab) [address] [place], [address], 03/16/2022 15:19:38 03/16/19 23 03/16/2022 CBC/C OMPLE TE BLD COUNT W/DIF F basophils 0.4 % 0.0-2. 0 Not Available [facility] (Lab) [address] [place], [address], 03/16/2022 15:19:38 03/16/19 23 03/16/2022 CBC/C OMPLE TE BLD COUNT W/DIF F immature granulocytes 0.4 % 0.00-0 .50 Not Available [facility] (Lab) [address] [place], [address], 03/16/2022 15:19:38 03/16/19 23 03/16/2022 CBC/C OMPLE TE BLD COUNT W/DIF F neutrophils, absolute count 3.49 x10'3 /uL 1.5-8. 0 Not Available [facility] (Lab) [address] [place], [address], 03/16/2022 15:19:38 03/16/19 23 03/16/2022 CBC/C OMPLE TE BLD COUNT W/DIF F lymphocytes, absolute count 1.80 x10'3 /uL 1.07-3 .43 Not Available [facility] (Lab) [address] [place], [address], 03/16/2022 15:19:38 03/16/19 23 03/16/2022 CBC/C OMPLE TE BLD COUNT W/DIF F monocytes, absolute count 0.33 x10'3 /uL 0.29-0 .99 Not Available [facility] (Lab) [address] [place], [address], 03/16/2022 15:19:38 03/16/19 23 03/16/2022 CBC/C OMPLE TE BLD COUNT W/DIF F eosinophils, absolute count 0.03 x10'3 /uL 0.02-0 .53 Not Available [facility] (Lab) [address] [place], [address], 03/16/2022 15:19:38 03/16/19 23 03/16/2022 CBC/C OMPLE TE BLD COUNT W/DIF F basophils, absolute count 0.02 x10'3 /uL 0.01-0 .08 Not Available [facility] (Lab) [address] [place], [address], 03/16/2022 15:19:38 03/16/19 23 03/16/2022 CBC/C OMPLE TE BLD COUNT W/DIF F immature granulocytes ,absolute 0.02 x10'3 /uL 0.00-0 .05 Not Available [facility] (Lab) [address] [place], [address], 03/16/2022 15:19:38 03/16/19 23 03/16/2022 CBC/C OMPLE TE BLD COUNT W/DIF F nucleated red blood cells 0.0 % -0 Not Available [facility] (Lab) [address] [place], [address], 03/16/2022 15:19:38 03/16/19 23 03/16/2022 CBC/C OMPLE TE BLD COUNT W/DIF F NRBC# 0.00 x10'3 /uL Not Available [facility] (Lab) [address] [place], [address], 03/16/2022 15:19:38 03/16/19 23 03/16/2022 COMPR EHENS MEÑO METAB OLIC PANEL carbon dioxide 28 mmol/ L 22-30 Not Available [facility] (Lab) [address] [place], [address], 03/16/2022 15:03:16 03/16/19 23 03/16/2022 COMPR EHENS MEÑO METAB OLIC PANEL sodium 139 mmol/ L 137-14 5 Not Available [facility] (Lab) [address] [place], [address], 03/16/2022 15:03:16 03/16/19 23 03/16/2022 COMPR EHENS MEÑO METAB OLIC PANEL potassium 4.7 mmol/ L 3.5-5. 1 Not Available [facility] (Lab) [address] [place], [address], 03/16/2022 15:03:16 03/16/19 23 03/16/2022 COMPR EHENS MEÑO METAB OLIC PANEL chloride 103 mmol/ L 98-107 Not Available [facility] (Lab) [address] [place], [address], 03/16/2022 15:03:16 03/16/19 23 03/16/2022 COMPR EHENS MEÑO METAB OLIC PANEL anion gap 12.7 mmol/ L 14-22 low Not Available [facility] (Lab) [address] [place], [address], 03/16/2022 15:03:16 03/16/19 23 03/16/2022 COMPR EHENS MEÑO METAB OLIC PANEL glucose 102 mg/dL 70-99 high Not Available [facility] (Lab) [address] [place], [address], 03/16/2022 15:03:16 03/16/19 23 03/16/2022 COMPR EHENS MEÑO METAB OLIC PANEL BUN 14 mg/dL 8-19 Not Available [facility] (Lab) [address] [place], [address], 03/16/2022 15:03:16 03/16/19 23 03/16/2022 COMPR EHENS MEÑO METAB OLIC PANEL creatinine 0.83 mg/dL 0.66-1 .25 Not Available [facility] (Lab) [address] [place], [address], 03/16/2022 15:03:16 03/16/19 23 03/16/2022 COMPR EHENS MEÑO METAB OLIC PANEL GFR >60 Refer ence Range : [place] ge GFR Healt hy Adult : >60 mL/mi n/1.7 3 m2 Chron ic Kidne y Disea se: 15-60 mL/mi n/1.7 3 m2 Kidne y Failu re: <15/m L/min /1.73 m2 www.n iddk. [facility].g ov The MDRD study equat ion has not been valid ated in child krystle <18 years of age; pregn ant women ; the elder ly >85 years of age; or in some racia l or ethni c subgr oups, such as Hispa nics. Outsi de the valid ated yvonne eters , estim ated GFR is less accur ate, requi ring clini celena judgm ent on a case- by-ca se basis . Clini celena inter preta tion for other races and ages must be made by the clini cosmo. The MDRD study equat ion has not been valid ated for the evalu ation of serum creat inine relat ed to nutri pierre l statu s or medic ation usage . For perso ns <18 years of age, a pedia tric GFR calcu lator is avail able on the [facility] websi te: https ://olga moon.omid toth/dafne pinonal s/khoao qi/gf r_cal culat or Not Available [facility] (Lab) [address] [place], [address], 03/16/2022 15:03:16 03/16/19 23 03/16/2022 COMPR EHENS MEÑO METAB OLIC PANEL alkaline phosphatase 69 U/L 38-126 Not Available [facility] (Lab) [address] [place], [address], 03/16/2022 15:03:16 03/16/19 23 03/16/2022 COMPR EHENS MEÑO METAB OLIC PANEL alanine aminotransfe rase 34 U/L 0-35 Not Available [facility] (Lab) [address] [place], [address], 03/16/2022 15:03:16 03/16/19 23 03/16/2022 COMPR EHENS MEÑO METAB OLIC PANEL aspartate aminotransfe rase 28 U/L 15-37 Not Available [facility] (Lab) [address] [place], [address], 03/16/2022 15:03:16 03/16/19 23 03/16/2022 COMPR EHENS MEÑO METAB OLIC PANEL bilirubin, total 0.60 mg/dL 0.20-1 .30 Not Available [facility] (Lab) [address] [place], [address], 03/16/2022 15:03:16 03/16/19 23 03/16/2022 COMPR EHENS MEÑO METAB OLIC PANEL calcium 9.4 mg/dL 8.4-10 .2 Not Available [facility] (Lab) [address] [place], [address], 03/16/2022 15:03:16 03/16/19 23 03/16/2022 COMPR EHENS MEÑO METAB OLIC PANEL total protein 7.2 g/dL 6.3-8. 2 Not Available [facility] (Lab) [address] [place], [address], 03/16/2022 15:03:16 03/16/19 23 03/16/2022 COMPR EHENS MEÑO METAB OLIC PANEL albumin 4.4 g/dL 3.4-5. 0 Not Available [facility] (Lab) [address] [place], [address], 03/16/2022 15:03:16 03/16/19 23 03/16/2022 COMPR EHENS MEÑO METAB OLIC PANEL globulin 2.8 g/dL 2.6-4. 2 Not Available [facility] (Lab) [address] [place], [address], 03/16/2022 15:03:16 0103/16/2022 COMPR EHENS MEÑO METAB OLIC PANEL A/G ratio 1.6 ratio 1.0-2. 0 Not Available [facility] (Lab) [address] [place], [address], 03/16/2022 15:03:16 10/23/19 23 10/22/2022 MAGNE SIUM magnesium 2.0 mg/dL 1.6-2. 3 Not Available [facility] (Lab) [address] [place], [address], 10/22/2022 17:23:03 10/23/19 23 10/22/2022 LIPAS E SERUM lipase 383 U/L 23-300 high Not Available [facility] (Lab) [address] [place], [address], 10/22/2022 17:23:08 10/23/19 23 10/22/2022 T4 FREE free T4 0.96 NG/dL 0.78-2 .19 Not Available [facility] (Lab) [address] [place], [address], 10/22/2022 18:01:46 10/23/19 23 10/22/2022 T3 FREE free T3 3.7 pg/mL 2.77-5 .27 Not Available [facility] (Lab) [address] [place], [address], 10/22/2022 18:01:47 10/23/19 23 10/22/2022 TSH thyroid-stim ulating hormone 2.500 uIU/m L 0.465- 4.680 Not Available [facility] (Lab) [address] [place], [address], 10/22/2022 18:01:56 09/19/19 21 09/17/2020 MAMMO , scree pamela, digit al, bilat eral No observ ation record ed. [id number] [facility] (Imaging) [address] [place] [address] [address], [place], [address], 04/29/2022 06:20:05 12/10/19 21 05/25/2021 elect rocar diogr am No observ ation record ed. MIGRATION. [facility] [address], [place], [address], 04/29/2022 06:20:05 12/13/19 21 12/09/2020 elect rocar diogr am No observ ation record ed. MIGRATION. [facility] [address], [place], [address], 04/29/2022 06:20:05 08/16/19 22 08/15/2021 MAMMO , diagn ostic , digit al, bilat eral No observ ation record ed. MIGRATION. [address], [place], [address], 04/29/2022 06:20:05 10/18/19 22 10/15/2021 MRI, breas t, bilat eral, w/wo contr ast No observ ation record ed. MIGRATION. [facility], [place], [address], 04/29/2022 06:20:05 05/10/19 23 05/09/2022 XR, hip, unila teral No observ ation record ed. cyahl [facility] [address], [place], [address], 05/11/2022 16:03:03 07/03/19 23 11/18/2021 MAMMO , unila teral , left and US, breas t, left No observ ation record ed. [email or web address] [facility], [place], [address], 10/22/2022 16:28:18 07/03/19 23 07/02/2022 MAMMO , unila teral , left and US, breas t, left No observ ation record ed. [address] [facility], [place], [address], 10/22/2022 16:29:48 10/21/19 23 10/20/2022 XR, chest No observ ation record ed. [address], [place], [address], 10/22/2022 16:30:20 10/21/19 23 10/20/2022 CT, brain , w/o contr ast No observ ation record ed. [address], [place], [address], 10/22/2022 16:30:46 11/07/19 23 11/06/2022 US, echoc ardio gram No observ ation record ed. [address] [place], [address], 01/20/2023 13:57:25 12/05/19 23 12/04/2022 jolly r monit or No observ ation record ed. [address] [facility] [address], [place], [address], 01/20/2023 13:57:26 01/02/20 23 US, abdom en [facility] [address] [place], [place] [id number] Patien t Name: LINA BRADFORD ion #: [id number] Sex: F : 1975 4 Dictat ed By: Shekhar Sheikh Attend ing Physic zach: , Orderi ng Physic zach: ALINE DUNLAP Exam Date: 2022 09:52 AM Exam Name: US ABD/LT D/ORG/ UQ/GB Admitt ing Diagno sis(es ): STUDY: US ABD/LT D/ORG/ UQ/GB CLINIC AL INDICA TION: Histor y of right upper quadra nt (RUQ) pain. Patien t status post cholec ystect renae. TECHNI QUE: Real-t estee graysc angus and color Dopple r sonogr aphy focuse d on the upper quadra nts of the abdome n. FINDIN GS: Liver: Size: Enlarg ed, measur ing 20.3 cm in span. Echote xture: Diffus lance increa sed echoge nicity , which may sugges t steato sis or other parenc hymal liver diseas e. Lesion s: A well-c ircums cribed hypoec hoic area in the right lobe, measur ing approx imatel y 4.9 x 2.1 x 3.3 cm. This could repres ent a benign lesion such as irena ioma, or less likely a solid mass which may requir e furthe r evalua tion with MRI or CT. Vascul ature: Hepato petal flow within the portal vein is normal . Gallbl adder: Status : Cholec ystect renae noted; gallbl adder is surgic ally absent . Common Bile Duct (CBD): Diamet er: Slight ly enlarg ed at 4.4 mm, which may be normal post cholec ystect renae but should be correl ated with liver functi on tests and clinic al findin gs. Pancre as: Head, Body, and Proxim al Tail: Appear normal . Distal Tail: Visual izatio n is limite d due to overly ing bowel gas. Kidney s: Right Kidney : Normal size and echote xture, measur ing 10.8 x 4.2 x 5.2 cm. No eviden ce of hydron ephros is or stones . Vascul ar: Aorta and IVC: Both are patent with no eviden ce of aneury sm or thromb osis. IMPRES BRIDGER: 1. Hepato megaly with increa sed liver echoge nicity and a hypoec hoic lesion in the right lobe. Given the patien t's histor y of RUQ pain, furthe r charac teriza tion with contra st-enh anced MRI or CT is recomm ended to exclud e Page 1 [facility] [address] [place] [address] Patien t Name: LINA BRADFORD Access ion #: [id number] Sex: F : 1975 4 Dictat ed By: Shekhar Sheikh Attend ing Physic zach: , Lashonda randall Physic zach: ALINE DUNLAP Exam Date: 2022 09:52 AM Exam Name: US ABD/LT D/ORG/ UQ/GB Admitt ing Diagno sis(es ): malign michael. 2. Post-c holecy stecto my status . 3. Slight dilata tion of the CBD, which may be within normal limits post cholec ystect renae; clinic al correl ation and follow -up liver functi on tests are sugges carol. 4. Pancre as is partia lly obscur ed. 5. Normal appear ance of the right kidney and patent abdomi nal vascul ature. Electr onical ly Signed by: Shekhar Sheikh at 2022 08:52: 27 AM Signat ure Date/T estee: 2022 8:52 AM Page 2 [facility] (Imaging) [address] [place], [address], 01/08/2023 14:20:39 01/19/20 23 01/18/2023 MRI, abdom en, w/wo contr ast [facility] [address] [place] [address] [phone] Patien t Name: LINA BRADFORD Access ion #: [id number] Sex: F : 1975 6 Dictat ed By: Oneal Montoya Attend ing Physic zach: ALINE DUNLAP ng Physic zach: ALINE DUNLAP Exam Date: 2022 08:57 AM Exam Name: MRI ABDOME N W/WO Admitt ing Diagno sis(es ): INDICA TION: Liver lesion . Techni que: Multip lanar multis equenc e images were obtain ed of the abdome n with and withou t the admini strati on of 16 mL of MultiH ance contra st intrav enousl y. MRCP also perfor med. COMPAR MARGARITA: Ultras ound abdome n 023. FINDIN GS: LIVER: Wedge- shaped 4.1 cm area of signal abnorm ality in hepati c segmen t 4 corres pondin g to suspic ious findin g on prior ultras ound. Normal ashley sing vessel s seen across the lesion withou t mass effect , with preser vation of signal intens ity on the oppose d phase dual echo sequen ce sugges tive of focal fatty sparin g. No additi onal suspic ious liver lesion detect ed. No biliar y ductal dilati on. No eviden ce of choled ocholi thiasi s. SPLEEN :Angela l GALLBL ADDER: Absent PANCRE : Normal . No pancre atic ductal dilati on. ADRENA L GLANDS : Normal KIDNEY S: Normal GI: Normal LYMPH NODES: Normal VASCUL AR STRUCT URES:N ormal PERITO NEUM OR RETROP ERITON EUM: Normal IMPRES BRIDGER: 1. Previo us suspic ious hepati c ultras ound findin g likely corres ponds to focal fatty sparin g in the left hepati c lobe measur ing 4.1 cm. No additi onal suspic ious liver lesion detect ed. 2. No biliar y ductal dilati on or eviden ce of choled ocholi thiasi s. 3. Absent gallbl adder. Correl ate with cholec ystect renae. Page 1 [facility] [address] [facility] [address] [facility], [place] [address] [phone] Patien t Name: LINA BRADFORD Access ion #: [id number] Sex: F : 1975 6 Dictat ed By: Oneal Montoya Attend ing Physic zach: [facility] Physic zach: ALINE DUNLAP Exam Date: 2022 08:57 AM Exam Name: MRI ABDOME N W/WO Admitt ing Diagno sis(es ): Electr onical ly Signed by: Oneal Montoya at 2022 12:07: 03 PM Page 2 [email or web address] [facility] (Imaging) [address] [place], [address], 01/20/2023 13:02:52 Result Notes None recorded. Problems Name Problem SNOMED Code Status Onset Date Resolution Date Notes Provider Name and Address Organization Details Recorded Time Exudative pharyngitis 940827154 Active Not Available [facility] 3 22:19:28 Mammography abnormal 880961265 Active 2021 Not Available [facility] 3 22:19:28 Asthma 174191263 Active 2017 Not Available [facility] 3 22:19:28 Overweight 460851231 Active Not Available [facility] 3 22:19:28 Sprain of calcaneofibul ar ligament 44930560 Active Not Available [facility] 3 22:19:28 Bleeding from nipple 610545247 Active 2021 Not Available [facility] 3 22:19:28 Gastroesophag eal reflux disease without esophagitis 087432284 Active 2022 Not Available [facility] 3 22:19:28 On examination - rash present Active Not Available [facility] 3 22:19:28 Bronchitis 64392887 Active Not Available [facility] 3 22:19:28 Sinusitis 08920492 Active Not Available [facility] 3 22:19:28 Asthmatic bronchitis 737747018 Active Not Available [facility] 3 22:19:28 Streptococcal sore throat 21692354 Active 2021 Not Available [facility] 3 22:19:28 Pain of shoulder region 52513100 Active Not Available [facility] 3 22:19:28 Bleeding from breast 31296074 Active 2021 Not Available [facility] 3 22:19:28 Upper respiratory infection 39878247 Active Not Available [facility] 3 22:19:28 Discharge from nipple 60177011 Active 2021 Not Available [facility] 3 22:19:28 Otitis media 19817011 Active Not Available [facility] 3 22:19:28 Urinary tract infectious disease [id number] Active Not Available [facility] 3 22:19:28 Rheumatoid arthritis 32258813 Active 2020 Not Available [facility] 3 22:19:28 Diarrhea 43510562 Active 2022 Not Available [facility] 3 22:19:28 Mucus in stool 896560156 Active 2022 Not Available [facility] 3 22:19:28 Tachycardia 0992128 Active 2022 Not Available [facility] 3 22:19:28 Nausea 859883237 Active 2022 Not Available [facility] 3 22:19:28 Lesion of liver 344480130 Active 2022 Not Available [facility] 3 22:19:28 COVID-19 676478610 Active 2022 Keeley Arevalo RN [facility], [facility] 3 17:41:02 Notes:Some problems listed i n Documents: #[id number], #[id number] could not be added to this patient's chart. Please review these documents and add these problems to the patient's chart manually as needed. Problem Notes None recorded. Procedures Surgical History Date Name Laterality Status Provider Name and Address Organization Details Recorded Time 01/04/20 21 total replacement of hip completed Not Available [facility] 04/29/2022 05:58:45 suture of hamstring muscle rupture, primary completed Not Available [facility] 04/29/2022 05:58:45 Hysterectomy completed Not Available [facility] 04/29/2022 05:58:45 Shoulder completed Not Available [facility] 05:58:45 operation on breast duct completed Not Available [facility] 04/29/2022 05:58:45 Imaging Results Imaging Date Name Status LastModified by Organization Details LastModified Time 09/17/2020 MAMMO, screening, digital, bilateral completed [id number] [facility] (Imaging) [address] [place] [address] [address], [place], [address], 04/29/2022 06:20:05 05/25/2021 electrocardiogram completed MIGRATION. [id number] [facility] Internal Med [address], [place], [address], 04/29/2022 06:20:05 12/09/2020 electrocardiogram completed MIGRATION. [id number] [facility] Internal Med [address], [place], [address], 04/29/2022 06:20:05 08/15/2021 MAMMO, diagnostic, digital, bilateral completed [id number], [place], [address], 04/29/2022 06:20:05 10/15/2021 MRI, breast, bilateral, w/wo contrast completed [id number] [place], [address], 04/29/2022 06:20:05 05/09/2022 XR, hip, unilateral completed cyahl Z_hrg _[facility] Internal Med [address], [place], [address], 05/11/2022 16:03:03 11/18/2021 MAMMO, unilateral, left and US, breast, left completed [email or web address] [facility], [place], [address], 10/22/2022 16:28:18 07/02/2022 MAMMO, unilateral, left and US, breast, left completed [email or web address] [facility] [address], [place], [address], 10/22/2022 16:29:48 10/20/2022 XR, chest completed [address] [facility], [place], [address], 10/22/2022 16:30:20 10/20/2022 CT, brain, w/o contrast completed [address], [place], [address], 10/22/2022 16:30:46 11/06/2022 US, echocardiogram completed [address] [place], [address], 01/20/2023 13:57:25 12/04/2022 holter monitor completed [address] [facility] [address], [place], [address], 01/20/2023 13:57:26 01/01/2023 US, abdomen completed [facility] (Imaging) [address] [place], [address], 01/08/2023 14:20:39 01/18/2023 MRI, abdomen, w/wo contrast completed [email or web address] (Imaging) [address] [place], [address], 01/20/2023 13:02:52 Procedure Notes None recorded. Medical Equipment None Reported. Allergies Allergen ID Allergen Name Allergen Category Reaction Reaction Severity Criticality Documentation Date Start Date Code Code System Note Provider Name and Address Organization Details Recorded Time 14241 dexametha sone medicatio n headache insomnia Not available Not available Not available 04/29/2022 3264 RxNorm cause d her to be unabl e to walk Not Available [facility] 06:19:34 Medications Name Sig Start Date Stop Date Status Note LastModified by Organization Details LastModified Time celecoxib 200 mg capsule TAKE 1 CAPSULE BY MOUTH TWICE DAILY FOR PAIN active Not Available Not Available No t Available amoxicillin 500 mg capsule TAKE 4 CAPSULE BY MOUTH 1 HOUR PRIOR TO DENTAL APPOINTME NT active Not Available Not Available No t Available prednisone 10 mg tablet Take by oral route. active Not Available Not Available No t Available Lamar Thyroid 90 mg tablet TK 1 T PO QAM ON EMPTY STOMACH- WAIT 20 MINUTES BEFORE EATING OR DRINKING 12/19 completed Not Available Not Available Not Available ipratropium 0.5 mg-albutero l 3 mg (2.5 mg base)/3 mL nebulizatio n soln USE 3 ML VIA NEBULIZER FOUR TIMES DAILY NEEDED active Not Available Not Available No t Available albuterol sulfate 2.5 mg/3 mL (0.083 %) solution for nebulizatio n USE 1 VIAL VIA NEBULIZER EVERY 4 HOURS active Not Available Not Available No t Available triamcinolo ne acetonide 0.5 % topical cream APPLY A THIN LAYER TO THE AFFECTED AREA(S) BY TOPICAL ROUTE 2 TIMES PER DAY active Not Available Not Available No t Available hydrocodone 5 mg-acetamin ophen 325 mg tablet 12/19 completed Not Available Not Available Not Available ondansetron HCl 8 mg tablet 10/04 completed Not Available Not Available Not Available meloxicam 15 mg tablet Take 1 tablet every day by oral route. active Not Available Not Available No t Available metronidazo le 0.75 % (37.5 mg/5 gram) vaginal gel 08/17 completed Not Available Not Available Not Available ondansetron HCl 4 mg tablet TK 1 T PO Q 6 H PRN N AND VOMITING 01/10 completed Not Available Not Available Not Available Medrol (Francisco) 4 mg tablets in a dose pack Take 1 package by oral route as directed. 10/16 completed Not Available Not Available Not Available prednisone 20 mg tablet TAKE 1 TABLET BY MOUTH TWICE A DAY FOR 5 DAYS active Not Available Not Available No t Available dexamethaso ne 6 mg tablet TAKE 1 TABLET BY MOUTH EVERY DAY active Not Available Not Available No t Available spironolact one 100 mg tablet 01/10 completed Not Available Not Available Not Available prednisone 5 mg tablet TAKE 1-3 TABLETS BY MOUTH DAILY FOR ARTHRITIS CONTROL active Not Available Not Available No t Available Pyridium 100 mg tablet Take 1 tablet 3 times a day by oral route as directed for 7 days. 06/05 completed Not Available Not Available Not Available [place] Thyroid 120 mg tablet TAKE 1 AND 1/2 TABLETS BY MOUTH EVERY MORNING ON AN EMPTY STOMACH 08/27 completed Not Available Not Available Not Available Zithromax Z-Francisco 250 mg tablet Take 1 dose pk by oral route as directed. active Not Available Not Available No t Available penicillin V potassium 500 mg tablet Take 1 tablet every 8 hours by oral route as directed for 10 days. active Not Available Not Available No t Available Biaxin 500 mg tablet Take 1 tablet every 12 hours by oral route. 05/29 completed Not Available Not Available Not Available phentermine 37.5 mg tablet TAKE 1 TABLET BY MOUTH EVERY MORNING 08/27 completed Not Available Not Available Not Available ciprofloxac in 250 mg tablet Take 1 tablet every 12 hours by oral route for 7 days. 10/25 completed Not Available Not Available Not Available valacyclovi r 500 mg tablet 04/20 completed Not Available Not Available Not Available ciprofloxac in 500 mg tablet TAKE 1 TABLET BY MOUTH EVERY 12 HOURS DIRECTED FOR 7 DAYS 10/22 completed Not Available Not Available Not Available sulfamethox azole 800 mg-trimetho prim 160 mg tablet active Not Available Not Available Not Available tramadol 50 mg tablet TAKE 1-2 TABLETS BY MOUTH WITH OTC TYLENOL THREE TIMES DAILY FOR PAIN active Not Available Not Available No t Available triamcinolo ne acetonide 0.1 % topical cream apply to rash daily x 2wks. active Not Available Not Available No t Available amoxicillin 500 mg tablet Take 1 tablet every 12 hours by oral route. 05/29 completed Not Available Not Available Not Available acyclovir 800 mg tablet 1 q 4 hrs x 1 day then 1 daily active Not Available Not Available No t Available phendimetra zine tartrate ER 105 mg capsule,ext ended release TK ONE C PO QAM 30 MINUTES PRIOR TO BREAKFAST 09/18 completed Not Available Not Available Not Available ketorolac 10 mg tablet 10/04 completed Not Available Not Available Not Available Kenalog 40 mg/mL suspension for injection 01/09 completed [facility] [phone] Not Available Not Available Not Available meloxicam 7.5 mg tablet 03/16 completed Not Available Not Available Not Available oxycodone-a cetaminophe n 5 mg-325 mg tablet TK 1 OR 2 TS PO Q 4 TO 6 H PRN P 01/10 completed Not Available Not Available Not Available amoxicillin 875 mg tablet 09/18 completed Not Available Not Available Not Available famotidine 20 mg tablet TAKE 1 TABLET BY MOUTH TWICE A DAY active Not Available Not Available No t Available estradiol 1 mg tablet 12/14 completed Not Available Not Available Not Available methotrexat e sodium 2.5 mg tablet TAKE 5 TABS IN AM AND PM BY ORAL ROUTE ONCE WEEKLY 01/11 completed Not Available Not Available Not Available hydrocodone 7.5 mg-acetamin ophen 325 mg tablet 10/04 completed Not Available Not Available Not Available pantoprazol e 40 mg tablet,colin yed release TAKE 1 TABLET BY MOUTH EVERY DAY active Not Available Not Available No t Available John-Tab 333 mg tablet,colin yed release TK 1 T PO TID Q 8 H 10/16 completed Not Available Not Available Not Available tobramycin 0.3 % eye drops 12/14 completed Not Available Not Available Not Available nystatin 100,000 unit/gram topical cream APPLY TO THE AFFECTED AREA(S) BY TOPICAL ROUTE 2 TIMES PER DAY active Not Available Not Available No t Available clotrimazol e-betametha sone 1 %-0.05 % topical cream 04/20 completed Not Available Not Available Not Available folic acid 1 mg tablet TAKE 1 TABLET BY MOUTH EVERY DAY active Not Available Not Available No t Available montelukast 10 mg tablet TAKE 1 TABLET BY MOUTH EVERY DAY active Not Available Not Available No t Available epinephrine 0.3 mg/0.3 mL injection, auto-inject or USE DIRECTED active Not Available Not Available No t Available cefuroxime axetil 500 mg tablet Take 1 tablet twice a day by oral route. active Not Available Not Available No t Available albuterol sulfate HFA 90 mcg/actuati on aerosol inhaler INL 2 PFS PO Q 4 H PRN active Not Available Not Available No t Available fluticasone propionate 50 mcg/actuati on nasal spray,suspe nsion 2 spray(s) each nostril daily at supper active Not Available Not Available No t Available metformin ER 500 mg tablet,exte nded release 24 hr 12/15 completed Not Available Not Available Not Available doxycycline hyclate 100 mg tablet 04/20 completed Not Available Not Available Not Available estradiol 0.1 mg/24 hr weekly transdermal patch 12/19 completed Not Available Not Available Not Available diazepam 5 mg tablet TK 1/2 T PO BID 09/18 completed Not Available Not Available Not Available amoxicillin 875 mg-potassiu m clavulanate 125 mg tablet 02/04 completed Not Available Not Available Not Available amoxicillin 500 mg-potassiu m clavulanate 125 mg tablet 12/14 completed Not Available Not Available Not Available hydroxyzine pamoate 25 mg capsule TK ONE C PO Q 8 H PRN 01/10 completed Not Available Not Available Not Available cyclobenzap rine 5 mg tablet TAKE 1 TABLET BY MOUTH EVERY NIGHT 01/11 completed Not Available Not Available Not Available nitrofurant oin monohydrate /macrocryst als 100 mg capsule 10/25 completed Not Available Not Available Not Available Reclipsen (28) 0.15 mg-0.03 mg tablet 12/14 completed Not Available Not Available Not Available Symbicort 160 mcg-4.5 mcg/actuati on HFA aerosol inhaler INHALE 2 PUFFS PO BID 01/02 completed Not Available Not Available Not Available Adacel (Tdap Adolesn/Ramiro lt)(PF)2 Lf-(2.5-5-3 -5)-5 Lf/0.5 mL IM syringe PHARMACIS T ADMINISTE RED IMMUNIZAT ION ADMINISTE RED AT TIME OF DISPENSIN G active Not Available Not Available No t Available Fluvirin 3907-0950(P F) 45 mcg (15 mcg x3)/0.5 mL intramuscul ar syringe 01/09 completed Not Available Not Available Not Available OxyContin 10 mg tablet,rafael h resistant,e xtended release TK 1 T PO Q 12 H PRN P 01/10 completed Not Available Not Available Not Available Rybelsus 3 mg tablet Take by oral route for 30 days. 2023 active Not Available Not Available Not Avai lable Paxlovid 300 mg (150 mg x 2)-100 mg tablets in a dose pack TAKE 1 DOSE PACK BY MOUTH DIRECTED active Not Available Not Available No t Available Vitals Date Recorded Body mass index (BMI) Body height Heart rate Body temperature Body weight Systolic blood pressure Diastolic blood pressure Provider Name and Address Organization Details Last Updated DateTime 1 34.8 kg/m2 154.94 cm 72 /min 97 [degF] 42669 g 124 mm[Hg] 68 mm[Hg] Not Available [facility] 3 06:05:52 Date Recorded Body mass index (BMI) Body height Heart rate Body temperature Body weight Systolic blood pressure Diastolic blood pressure Provider Name and Address Organization Details Last Updated DateTime 1 34.2 kg/m2 154.94 cm 72 /min 98.1 [degF] 64055.2 2 g 122 mm[Hg] 82 mm[Hg] Not Available [facility] 3 06:05:52 Date Recorded Body mass index (BMI) Body height Heart rate Body temperature Body weight Systolic blood pressure Diastolic blood pressure Provider Name and Address Organization Details Last Updated DateTime 3 34.2 kg/m2 154.94 cm 79 /min 98.6 [degF] 96550.2 2 g 122 mm[Hg] 72 mm[Hg] Not Available [facility] 3 06:05:52 Date Recorded Body height Body mass index (BMI) Body weight Body temperature Heart rate Systolic blood pressure Diastolic blood pressure Provider Name and Address Organization Details Last Updated DateTime 3 154.94 cm 33.8 kg/m2 98233.0 3 g 97.6 [degF] 78 /min 120 mm[Hg] 84 mm[Hg] CRISTIAN Thorne [employer] 3 14:46:39 Date Recorded Body height Body mass index (BMI) Body weight Body temperature Heart rate Systolic blood pressure Diastolic blood pressure Provider Name and Address Organization Details Last Updated DateTime 3 154.94 cm 34 kg/m2 26752.6 3 g 97.2 [degF] 71 /min 122 mm[Hg] 76 mm[Hg] CRISTIAN Thorne [employer] 3 11:00:04 Social History Question Answer Notes LastModified by Organization Details LastModified Time Tobacco Smoking Status Former Smoker quit 2012 Not Available [facility] 04/29/2022 05:57:56 Do You Have An Advance Directive? No MIGRATION.0301 [id number] Information not available 04/29/2022 What Is Your Level Of Alcohol Consumption? Occasional MIGRATION.0301 [id number] Information not available 04/29/2022 If You Are , What Was Your Level Of Alcohol Consumption Prior To ? None MIGRATION.0301 [id number] Information not available 04/29/2022 Do You Wear A Helmet When Biking? No MIGRATION.0301 [id number] Information not available 04/29/2022 What Is Your Level Of Caffeine Consumption? Occasional MIGRATION.0301 [id number] Information not available 04/29/2022 How Much Tobacco Do You Chew? None MIGRATION.0301 [id number] Information not available 04/29/2022 In The 14 Days Before Symptom Onset, Have You Had Close Contact With A Laboratory-confi rmed COVID-19 While That Case Was Ill? No MIGRATION.030 [id number] Information not available 04/29/2022 In The 14 Days Before Symptom Onset, Have You Had Close Contact With A Person Who Is Under Investigation For COVID-19 While That Person Was Ill? No MIGRATION.0301 [id number] Information not available 04/29/2022 What Type Of Diet Are You Following? REGULAR MIGRATION.0301 [id number] Information not available 04/29/2022 Which Illicit Or Recreational Drugs Have You Used? None MIGRATION.030 [id number] Information not available 04/29/2022 Do You Or Have You Ever Used E-cigarettes Or Vape? Never Used Electronic Cigarettes MIGRATION.030 [id number] Information not available 04/29/2022 What Is The Highest Grade Or Level Of School You Have Completed Or The Highest Degree You Have Received? ON20357-5 MIGRATION.030 037939 Information not available 04/29/2022 What Is Your Occupation? [employer] MIGRATION.030 [id number] Information not available 04/29/2022 Have There Been Any Changes To Your Family Or Social Situation? No MIGRATION.0301 [id number] Information not available 04/29/2022 When Did You Quit Smoking? 6-10yearssincelastc igarette MIGRATION.030 [id number] Information not available 04/29/2022 Are There Any Guns Present In Your Home? Yes MIGRATION.0301 [id number] Information not available 04/29/2022 Do You Use Insect Repellent Routinely? Yes MIGRATION.0301 [id number] Information not available 04/29/2022 Where Do You Live? [place]House MIGRATION.0301 [id number] Information not available 04/29/2022 Do You Have A Medical Power Of Model Making Supervisor? No MIGRATION.0301 [id number] Information not available 04/29/2022 What Was The Date Of Your Most Recent Tobacco Screening? 01/11/2023 [email or web address] Information not available 01/11/2023 Have You Ever Been Counseled For Unhealthy Alcohol Use? No MIGRATION.0301 [id number] Information not available 04/29/2022 Do You Have Any Pets? Yes MIGRATION.0301 [id number] Information not available 04/29/2022 What Is Your Relationship Status? MIGRATION.0301 [id number] Information not available 04/29/2022 Do You Use Your Seat Belt Or Car Seat Routinely? Yes MIGRATION.0301 [id number] Information not available 04/29/2022 Do You Have Smoke And Carbon Monoxide Detectors In Your Home? Yes MIGRATION.0301 [id number] Information not available 04/29/2022 Are You Passively Exposed To Smoke? No MIGRATION.0301 [id number] Information not available 04/29/2022 Do You Or Have You Ever Used Smokeless Tobacco? Never Used Smokeless Tobacco MIGRATION.0301 031300 Information not available 04/29/2022 Are There Any Smokers In Your House? No MIGRATION.0301 [id number] Information not available 04/29/2022 How Much Tobacco Do You Smoke? No MIGRATION.0301 450956 Information not available 04/29/2022 Do You Feel Stressed (tense, Restless, Nervous, Or Anxious, Or Unable To Sleep At Night)? [id number] MIGRATION.0301 [id number] Information not available 04/29/2022 Do You Use Any Illicit Or Recreational Drugs? No MIGRATION.0301 694442 Information not available 04/29/2022 Do You Use Sunscreen Routinely? Yes MIGRATION.0301 [id number] Information not available 04/29/2022 Has Tobacco Cessation Counseling Been Provided? No MIGRATION.0301 [id number] Information not available 04/29/2022 How Many Years Have You Smoked Tobacco? 15 MIGRATION.0301 336956 Information not available 04/29/2022 Have You Recently Traveled Abroad? No MIGRATION.0301 [id number] Information not available 04/29/2022 Do You Have Any Dietary Restrictions? No MIGRATION.0301 722017 Information not available 04/29/2022 Do You Or Have You Ever Used Any Other Forms Of Tobacco Or Nicotine? No MIGRATION.300 300441 Information not available 04/29/2022 Sex: Female Functional Status Question Answer Note LastModified by Organizat ion Details LastModified Time What is your exercise level? None MIGRATION.[id number] Information not available 04/29/2022 Mental Status None recorded. Family History Relationship Description Onset Age of this Age Resolved Age Notes LastModified by Organization Details LastModified Time Mother Heart disease MIGRATION.520 [id number] Not available 04/29/2022 05:58:53 Father Heart disease MIGRATION.869 [id number] Not available 04/29/2022 05:58:53 Father Hypertensive disorder MIGRATION.498 [id number] Not available 04/29/2022 05:58:53 Father Hypercholest erolemia MIGRATION.797 [id number] Not available 04/29/2022 05:58:53 Father Gilbert's syndrome MIGRATION.308 [id number] Not available 04/29/2022 05:58:53 Medical History Condition Response BLINDNESS N NERVE DISEASE N RHEUMATIC FEVER N BLADDER PROBLEMS N KIDNEY STONES N MRSA N OTHER # 1 N POLIO N LUNG DISEASE/DISORDER N RADIATION / CHEMOTHERAPY N COPD N Other # 2 N BLOOD DISEASES N EAR OR HEARING PROBLEMS N MUMPS N BOWEL PROBLEMS N DEPRESSION (INCLUDING POST ) N STROKE/TIA N ULCERS N BENIGN PROSTATIC HYPERPLASIA N MEASLES N MYOCARDIAL INFARCTION N OBESITY N GERD/NAUSEA N ANEURYSM N URINARY/BLADDER/KIDNEY PROBLEMS N CORONARY ARTERY DISEASE (CAD) N ADDICTION CONCERNS N ENDOMETRIOSIS N Impotence N USE OF BLOOD THINNERS N SKIN PROBLEMS N GASTROINTESTINAL DISORDER N PERIPHERAL VASCULAR DISEASE N MUSCLE,JOINT OR BONE PROBLEMS N GASTROINTESTINAL BLEEDING N BLOOD CLOTS N ASTHMA Y CATARACTS N ERECTILE DYSFUNCTION N VARICOSITIES N GI PROBLEMS N Low Testosterone N INFERTILITY N AIDS/HIV N CHEMOTHERAPY / RADIATION N LIVER DISEASE N MALE HYPOGONADISM N HYPERTENSION Y Deficiency N TOURETTE'S N ANXIETY DISORDER N BLOOD TRANSFUSION N ANEMIA/BLOOD DISORDER N CHRONIC EAR INFECTIONS N BRONCHITIS N TUBERCULOSIS N GLAUCOMA N FOOT PROBLEM N DIVERTICULITIS N SLEEP APNEA N CHICKENPOX N INFECTIOUS DISEASE N HEART ARRHYTHMIA N PROSTATE N INSOMNIA N HIGH CHOLESTEROL / HYPERLIPIDEMIA N HYPERTHYROIDISM N EYE PROBLEMS N EDEMA N CHRONIC PAIN SYNDROME N HYPOTHYROIDISM N CAROTID BLOCKAGE N CONSTIPATION N BACK / NECK PROBLEMS N HAVE YOU BEEN HOSPITALIZED OR SEEN IN [facility] IN THE PAST YEAR ? N ATHEROSCLEROSIS N BREAST PROBLEMS N DIALYSIS N ECZEMA N OSTEOPOROSIS N ARTHRITIS Y APPENDICITIS N DIABETES, TYPE Y BAD TEETH N ENT N HEARTBURN / REFLUX Y AUTISM SPECTRUM DISORDER (ASD) N HEPATITIS / LIVER DISEASE N GOUT N SLEEP DISORDER N ALZHEIMER'S DISEASE N Brain Problems N HERPES N DEMENTIA N HEADACHES/MIGRAINES N SEIZURES/EPILEPSY N VASCULAR DISEASE N PACEMAKER N Blood Disorder N DIZZINESS N HEART DISEASE/HEART PROBLEMS N KIDNEY DISEASE N MULTIPLE SCLEROSIS N CARDIAC ARRHYTHMIA N CANCER: SPECIFY N ATRIAL FIBRILLATION N Gall Stones N PULMONARY EMBOLISM N AUTOIMMUNE DISEASE N Gynecological HistoryNo gynecological history recorded. Obstetrics History GPAL:G 0 P 0 0 0 0 Immunizations Vaccine Type Date Status Note Provider [facility] e and Address Organization Details Recorded Time Influenza, split virus, trivalent, preservative 3 completed Not Available [facility] 03/20/2023 04:22:53 Influenza, split virus, trivalent, preservative 1 completed Not Available [facility] 03/20/2023 04:22:53 Tdap 9 completed Not Available [facility] 03/20/2023 04:22:53 Influenza, high-dose, trivalent, PF 4 completed Not Available [facility] 03/20/2023 04:22:53 Influenza, split virus, trivalent, preservative 3 completed Not Available [facility] 03/20/2023 04:22:53 Past Encounters Encounter ID Performer Location Encounter Start Date Encounter Closed Date Diagnosis/Indication Diagnosis SNOMED-CT Code Diagnosis ICD10 Code Diagnosis Note [id number] Chadwick Dunlap MD [facility] Internal Med [facility] [address] [place] [address] 08/27/2020 00:00:00 08/27/2020 15:04:10 [id number] Chadwick Dunlap MD [facility] Internal Med [facility] [address] [facility] [address] [address] 12/09/2020 00:00:00 12/09/2020 22:01:30 [id number] Chadwick Dunlap MD [facility] Internal Med [facility] [address] [address] 03/16/2022 00:00:00 03/16/2022 20:40:11 [id number] Chadwick Dunlap MD [facility] Internal Med [facility] [address] [place] , [facility] [address] [place] [address] 10/22/2022 14:33:30 10/22/2022 15:36:38 Tachycardia 4870132 R00.0 Nausea 219639693 R11.0 [id number] Chadwick Dunlap MD [facility] Internal Med [facility] [address], [facility] [address] [place] [address] 01/11/2023 10:47:56 01/11/2023 12:43:11 Lesion of liver [id number] K76.9 Health Concerns Section Related Observation LastModified by Organization Detai ls LastModified Time None Recorded Concern Status LastModified by Organization Details LastModified Time None Recorded Advance Directives Directive N: Payers Encounter Date Sequence Insurance Name Policy Number Policy Wright Covered Member ID Wright Member ID Guarantor Name 10/22/2022 1 [facility] [id number] Lina L Rayl [id number] Lina L Rayl 10/22/2022 1 [place] [id number] Dajuan M Rayl [id number] Lina L Rayl 01/11/2023 1 [facility] [id number] Lina L Rayl [id number] Lina L Rayl 01/11/2023 1 [place] [id number] Dajuan M Rayl [id number] Lina L Rayl Notes Date Note Type Note Provider Name and Address Organization Details Recorded Time 10/22/2022 text/html felt funny maybe a little bit dizzy went to the emergency room said that she had a watch she was wearing that said AFib alert but that was not demonstrated on the EKG nor on telemetry while she was at the hospital in the emergency department Chadwick Dunlap MD [address], [address], [place], [address], [place] - [employer] 10/25/2022 21:44:57 01/11/2023 text/html Liver mass seen as she is having a lot of complaints GI davis Chadwick Dunlap MD [address] [facility], [facility] [address], [place], [address], [place] - [facility] 01/11/2023 13:44:55 OBGyn Episode No OBEpisode recorded.
--- OUTSIDE RECORDS SUMMARY | 2024-06-29 15:56 | XMS_ITS | Encounter Summary ---
Author Organization 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 Referral ID Status Reason Start Date Expiration Date Visits Re quested Visits Authorized [id number] Closed 06/29/2023 07/28/2024 1 1 Encounter Details Date Type Department Care Team (Late st Contact Info) Description 06/29/2023 8:29 AM CDT Hospital Encounter 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 No 06/12/2024 3:29 PM BRETT Mitra Block MD Within the last year, have you been afraid of your partner or ex-partner? No 06/12/2024 3:29 PM BRETT Luke Block MD Within the last year, have you been raped or forced to have any kind of sexual activity by your partner or ex-partner? No 06/12/2024 3:29 PM BRETT Mitra Block MD Within the last year, have you been kicked, hit, slapped, or otherwise physically hurt by your partner or ex-partner? No 06/12/2024 3:29 PM BRETT Luke Block MD * Question Answer Date of Assessment Author Q1: How often do you have a drink containing alcohol? Never 01/12/2024 1:50 PM Idalia Saldaña MA Q2: How many drinks containing alcohol do you have on a typical day when you are drinking? Patient does not drink 01/12/2024 1:50 PM Idalia Saldaña MA Q3: How often do you have six or more drinks on one occasion? Never 01/12/2024 1:50 PM Idalia Saldaña MA documented as of this encounter Plan of Treatment Not on file documented as of this encounter Procedures Procedure Name Priority Date/Time Associated Diagnosis Comments XR HIP RIGHT W PELVIS 2 OR 3 VIEWS Schedule Routine, Read Routine (OP Routine) 06/29/2023 8:33 AM CDT Right hip pain documented in this encounter Results * XR Hip Right 2 or 3 Views W Pelvis (06/29/2023 8:33 AM CDT) Anatomical Region Laterality Modality Lower Extremities, Hip, Pelvis Right D igital Radiography Narrative 06/29/2023 8:45 AM CDT Today we obtained x-rays of the right hip and pelvis and they show that her left hip replacement appears to be in excellent position and alignment with no signs of loosening or any other problems. Her right hip looks relatively normal. There is no joint space narrowing, subchondral sclerosis, subchondral cysts, or osteophytes. It does appear to be essentially normal. us Shekhar Patel MD IMG XR PROCEDURES Final R esult documented in this encounter Visit Diagnoses Not on filedocumented in this encounter Care Teams Oil Plant Operator Relationship Specialty Start Date End Date Soham Dunlap MD PCP - General 06/06/16 01/11/24 documented as of this encounter
--- OUTSIDE RECORDS SUMMARY | 2024-06-29 15:56 | XMS_ITS | Clinical Summary ---
Author Organization [facility] Address [address] [facility] [place] [address] Care Team Providers Care Director Speech And Hearing Name Role Phone Soham Dunlap MD Primary Care Provider [phone] Source Comments [facility],non-owned Affiliates and Associated Physician Practices is amultiple site organization consisting of ambulatory clinics and hospital sitesin [place], [place], [place] and [place]. This disclosure is being madepursuant to the Care Everywhere program and may not contain all information available regarding this patient. Last updated 17.[facility] Health Encounters Date Type Department Care Team Description 06/14/2024 Travel from Last 3 Months Social History Tobacco Use Types Packs/Day Years Used Date Smoking Tobacco: Never Assessed Comments Unknown Sex and Gender Information Value Date Recorded Sex Assigned at Not on file Legal Sex Female 2:59 PM CDT Gender Identity Not on file Sexual Orientation Not on file Plan of Treatment Upcoming Encounters Date Type Department Care Team (Late st Contact Info) Description 08/03/2024 2:30 PM CDT Office Visit [facility] - ENT [address] [place] [address], [place] [address] Kvng Romero, DMD [address] [place] [address] [place] [address] Health Maintenance Due Date Last Done Comments COLOGUARD (AGES 45-75) - COL ON CA SCREENING 1977 COLON MONITORING 1977 COLONOSCOPY - COLON CA SCREENING 1977 CT COLONOGRAPHY - COLON CA SCREENING 1977 Colorectal Cancer Screening 1977 FIT - COLON CA SCREENING 1977 FLEX SIG - COLON CA SCREENING 1977 LIPID TESTING 1977 MAMMOGRAM 1977 PAP SMEAR 1977 HIV SCREENING 1992 HEPATITIS C SCREENING 09/27/1995 DTAP/TDAP/TD VACCINES (1 - Tdap) 1996 HEPATITIS B VACCINE (1 of 3 - 19+ 3-dose series) 1996 COVID-19 VACCINE (1 - 2023-2 5 season) 2023 DEPRESSION SCREENING 03/01/2024 INFLUENZA VACCINE (Season Ended) 2024 ZOSTER VACCINE (1 of 2) 10/02/2027 HIB VACCINE Aged Out No longer eligi ble based on patient's age to complete this topic HPV VACCINE Aged Out No longer eligi ble based on patient's age to complete this topic MENINGOCOCCAL (Group B) VACC INE SHARED DECISION-MAKING Aged Out No longer eligibl e based on patient's age to complete this topic MENINGOCOCCAL GROUPS A/C/Y/W VACCINE Aged Out No longer eligible b ased on patient's age to complete this topic PNEUMOCOCCAL VACCINE Aged Out No long er eligible based on patient's age to complete this topic Insurance [facility] AETNA AETNA ANTHEM Care Teams Director Speech And Hearing Relationship Specialty Start Date End Date Soham Dunlap MD PCP - General 08/26/17
--- OUTSIDE RECORDS SUMMARY | 2024-06-29 15:56 | XMS_ITS | Clinical Summary ---
Author Organization [facility] Address [address] [place] [address] Care Team Providers Care Winder Fixer Name Role Phone None, Provider MD Primary Care Provider Unavaila ble Allergies Active Allergy Reactions Criticality Noted Date Comments Dexamethasone Other (see comment) 01/04/2021 Couldn't walk- almost paralyzed Latex Hives,Itching,Rash High 06/20/2012 Medications celecoxib (CELEBREX) 200 MG capsule Take 1 capsule by mouth 2 (two) times a day. 09/27/2021 Active folic acid (FOLVITE) 1 MG tablet Take 1 tablet by mouth daily. Active methotrexate (TREXALL) 2.5 MG tablet Take 5 tablets by mouth 2 (two) times a day. On fridays07/25/2021 Active ipratropium-alb uterol (DUONEB) 0.5-2.5 (3) MG/3ML Solution daily as needed. Active albuterol sulfate HFA 108 (90 Base) MCG/ACT inhaler every 6 (six) hours as needed. Active budesonide-form oterol (SYMBICORT) 160-4.5 MCG/ACT inhaler Inhale into the lungs daily as needed. Active Cholecalciferol (VITAMIN D-3) 125 MCG (5000 UT) Tab Take 5,000 Units by mouth daily. Active Multiple Vitamins-Minera ls (MULTIVITAMIN ADULTS 50+ OR) Take 1 split tab by mouth daily. Active Biotin w/ Vitamins C & E (HAIR/SKIN/NAIL S OR) Take 1 tablet by mouth daily. Active cetirizine (ZYRTEC) 10 MG chewable tablet Chew 10 mg by mouth daily as needed for Allergies. Active Famotidine (PEPCID AC OR) Take 1 tablet by mouth daily as needed. Active traMADol (ULTRAM) 50 MG tabletIndicatio ns:Acute Pain < 3 Day Supply Take 1 tablet (50 mg total) by mouth every 6 (six) hours as needed for Pain. Indications: Acute Pain < 3 Day Supply 10 tablet 11/18/2021 Active Active Problems No known active problems Family History Medical History Relation Comments Heart Disease Father valve replacemen t- maker Heart Disease Maternal Grandfather Cancer Maternal Grandmother breast Heart Disease Maternal Grandmother Cancer Paternal Grandfather prostate Breast Cancer Paternal Grandmother Cancer Paternal Grandmother liver Diabetes Paternal Uncle Heart Disease Paternal Uncle Relation Status Comments Father Maternal Grandfather Maternal Grandmother Paternal Grandfather Paternal Grandmother Paternal Uncle Social History Tobacco Use Types Packs/Day Years Used Date Smoking Tobacco: Former Cigarettes Q uit: 2012 Smokeless Tobacco: Never Comments:was only a social s moker- 1 pack would last 2 weeks Alcohol Use Standard Drinks/Week Comments Yes 0 (1 standard drink = 0.6 oz pur e alcohol) rare-= 2 every 4 months Comments No Sex and Gender Information Value Date Recorded Sex Assigned at Not on file 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[employer] Gender Identity Not on file Sexual Orientation Not on file Last Filed Vital Signs Vital Sign Reading Time Taken Comments Blood Pressure 154/66 05/09/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 Pulse 77 05/09/2022 9:44 AM INSPECTOR [employer] Temperature 36.7 C (98 F) 05/09/2022 9:44 AM INSPECT[employer] Respiratory Rate 16 05/09/2022 9:44 AM INSPECTOR [employer] Oxygen Saturation 98% 05/09/2022 9:4 4 AM INSPECT[employer] Inhaled Oxygen Concentration - - Weight 82 kg (180 lb 12.4 oz) 9:44 AM INSPECT[employer] Height 154.9 cm (5' 1 ) 05/09/2022 9:44 AM INSPECT[employer] Body Mass Index 34.16 05/09/2022 9:44 AM INSPECTOR [employer] Plan of Treatment Health Maintenance Due Date Last Done Comments Colorectal Cancer Screening Colonoscopy (10 Years) 1977 Annual Physical 1980 Hepatitis C 10/02/1995 Hepatitis B Vaccines (1 of 3 - 19+ 3-dose series) 1996 COVID-19 Vaccine (1 - 2024-25 season) 2023 Mammogram Screening 11/16/2025 11/17/2023, 10/07/2022, 07/02/2022, Additional history exists DTaP, Tdap and Td Vaccines (2 - Td or Tdap) 09/01/2028 09/01/2018 Meningococcal B Vaccine Aged Out No l onger eligible based on patient's age to complete this topic Meningococcal Vaccine Aged Out No hoda darius eligible based on patient's age to complete this topic Pneumococcal Vaccine: Pediatrics (0 to 5 Years) and At-Risk Patients (6 to 49 Years) Aged Out No longer eligible based on patient's age to complete this topic RSV Immunizations Under 20 Months Aged Out No longer eligible based on patient's age to complete this topic Procedures Procedure Name Priority Date/Time Associated Diagnosis Comments MG DIAG W LYNDSAY BILAT DIGI Routine 11/17/2023 12:34 PM CDT Breast pain from Last 3 Months or Most Recently Relevant to Health Maintenance Results * MG DIAG W LYNDSAY BILAT DIGI (11/17/2023 12:34 PM CDT) Anatomical Region Laterality Modality Breast Bilateral Mammography 11/17/2023 12:4 5 PM CDT Impressions 11/17/2023 12:54 PM CDT =====IMPRESSION:===== No mammographic findings suggestive of malignancy ASSESSMENT: ACR BI-RADS 2 - BENIGN FINDING(S) Recommendation: 1: Routine Screening Bilateral Ordered By: SOHAM SURESH Interpreted By: Mark Doan MD, 11/17/2023 12:45 PM Narrative 11/17/2023 12:54 PM CDT [facility] [place] [address] EXAMINATION: Digital bilateral diagnostic mammogram with 3-D tomography EXAM DATE/TIME: 11/17/2023 12:19 PM REASON FOR EXAM: right breast pain. Prior left breast biopsies. Family history of breast cancer in her grandmothers. COMPARISON: 10/07/2022, 07/02/2022, 01/01/2022, 08/15/2021 TECHNIQUE: Digital diagnostic mammography of both breasts was performed in addition to 3-D Tomosynthesis technique. This study was read with the assistance of a computer-aided detection system. TISSUE DENSITY: There are scattered areas of fibroglandular density. FINDINGS: The breast parenchymal findings are stable. Benign-appearing calcifications are noted. Left breast biopsy clip. No suspicious calcifications, masses, architectural distortion or skin thickening on either side. There has been no significant interval change. us Soham Suresh MD MAMMO Final Result from Last 3 Months or Most Recently Relevant to Health Maintenance Insurance [employer] Care Teams Winder Fixer Relationship Specialty Start Date End Date None, Provider, MD PCP - General UNKNOWN PHYSICIAN SPECIALTY 11/17/23
[2024-06-29 16:31] LABS: Estimated Glomerular Filt Rate 53
== END 2024-06-29 15:53 | disposition home or self-care (01) ==
PROVIDERS: PCP Internal Medicine; Visit Provider Internal Medicine
DX: R59.9 Enlarged lymph nodes, unspecified (principal)
CPT/HCPCS: 70491; Q9967